=== PATIENT | male | born 1940 | race Caucasian/White ===

== ENCOUNTER 2021-10-07 08:23 | Outpatient (REF) | payer MEDICARE, MEDICAID, SELFPAY ==
[2021-10-07 11:43] LABS: MANUAL DIFF FLAG NO
[2021-10-07 11:44] LABS: Appearance Urine CLEAR; Color Urine YELLOW; Glucose Urine UA NEG (NEG); Leukocyte Esterase Urine NEG (NEG); Nitrite Urine NEG (NEG); Specific Gravity - Urine 1.025 (1.005-1.025); Urine Blood NEG (NEG); Urine Ketones NEG (NEG); Urine Protein 1+ MG/DL (NEG-TRACE)
[2021-10-07 11:49] LABS: Basophils Percent Auto 0.3 % (0-2); Eosinophils Absolute Auto 0.2 X10*3/uL (0.0-0.4); Hematocrit 49.4 % (42.0-52.0); Hemoglobin 16.9 g/dl (14.0-18.0); Imm Gran Abs Auto 0.02 X10*3/uL (0.00-0.03); Imm Gran Pct Auto 0.3 % (0.0-0.4); Lymphocytes Absolute Auto 1.4 X10*3/uL (1.2-4.9); Lymphocytes Percent Auto 21.5 % (20-40); Mean Corpuscular HGB Conc 34.2 g/dl (31.0-36.0); Mean Corpuscular Hemoglobin 31.4 pg (27.0-33.0); Mean Corpuscular Volume 91.7 fL (80.0-98.0); Mean Platelet Volume 9.5 fL (9.4-12.4); Monocytes Absolute Auto 0.9 X10*3/uL (0.1-1.2); Monocytes Percent Auto 12.7 % (2-11); Neutrophils Absolute Auto 4.2 x10*3/uL (2.0-8.3); Neutrophils Percent Auto 62.2 % (45-73); Platelet Count 218 X10*3/uL (160-400); Red Blood Count 5.39 X10*6/uL (4.60-5.80); Red Cell Distribution Width 12.5 % (11.0-16.0); White Blood Count 6.7 X10*3/uL (4.8-10.8)
[2021-10-07 12:19] LABS: Alanine Aminotransferase 19 U/L (0-40); Albumin Level 4.5 g/dL (3.5-5.0); Alkaline Phosphatase 76 U/L (39-117); Anion Gap 16 (12-20); Aspartate Amino Transferase 26 U/L (5-37); Bilirubin Total 1.1 mg/dL (0.0-1.0); Blood Urea Nitrogen 18 mg/dL (9-16); Calcium 9.6 mg/dL (8.4-10.2); Carbon Dioxide 27 mmol/L (22-29); Chloride 97 mmol/L (96-108); Cholesterol 169 mg/dL; Estimated Glomerular Filt Rate > 60; Glucose Fasting 94 mg/dL (60-99); HDL Cholesterol 60 mg/dL; LDL Cholesterol Calculated 89 mg/dl; Potassium 3.6 mmol/L (3.3-5.1); Sodium 136 mmol/L (135-145); Total Protein 7.8 g/dL (6.5-8.0); Triglycerides 102 mg/dL
[2021-10-07 12:58] LABS: RBC Urine 0-2 /HPF (0); Squamous Epithelial Cell Urine TRACE /LPF
[2021-10-07 12:59] LABS: Mucus Urine TRACE /LPF; WBC Urine 0-2 /HPF (0-4)
== END 2021-10-07 08:24 | disposition home or self-care (01) ==
LOC: HO.HMGCLDS 08:23
PROVIDERS: PCP Internal Medicine; Visit Provider Internal Medicine
DX: I10 Essential (primary) hypertension (principal); E78.5 Hyperlipidemia, unspecified
CPT/HCPCS: 36415; 80053; 80061; 81001; 85025

== ENCOUNTER 2022-08-25 08:37 | Outpatient (REF) | payer MEDICARE, MEDICAID, SELFPAY ==
[2022-08-25 11:19] LABS: MANUAL DIFF FLAG NO
[2022-08-25 11:30] LABS: Baso%MD 0.5 %; Basophils Percent Auto 0.5 % (0-2); Eos%MD 3.2 %; Eosinophils Absolute Auto 0.2 X10*3/uL (0.0-0.4); Eosinophils Percent Auto 3.2 % (0-4); Hematocrit 48.5 % (42.0-52.0); Hemoglobin 16.9 g/dl (14.0-18.0); IG%MD 0.3 %; Imm Gran Abs Auto 0.02 X10*3/uL (0.00-0.03); Imm Gran Pct Auto 0.3 % (0.0-0.4); Lymph%MD 22.8 %; Lymphocytes Absolute Auto 1.5 X10*3/uL (1.2-4.9); Lymphocytes Percent Auto 22.8 % (20-40); Mean Corpuscular HGB Conc 34.8 g/dl (31.0-36.0); Mean Corpuscular Hemoglobin 31.4 pg (27.0-33.0); Mean Corpuscular Volume 90.1 fL (80.0-98.0); Mean Platelet Volume 9.4 fL (9.4-12.4); Mono%MD 12.5 %; Monocytes Absolute Auto 0.8 X10*3/uL (0.1-1.2); Monocytes Percent Auto 12.5 % (2-11); Neut%MD 60.7 %; Neutrophils Percent Auto 60.7 % (45-73); Platelet Count 228 X10*3/uL (160-400); Red Blood Count 5.38 X10*6/uL (4.60-5.80); Red Cell Distribution Width 12.1 % (11.0-16.0); White Blood Count 6.5 X10*3/uL (4.8-10.8)
[2022-08-25 12:02] LABS: Cholesterol 151 mg/dL; HDL Cholesterol 51 mg/dL; LDL Cholesterol Calculated 84 mg/dl; Triglycerides 84 mg/dL
[2022-08-25 12:06] LABS: PSA,Total (Free>4and<10) 1.28 ng/mL (0.00-4.00)
[2022-08-25 12:45] LABS: Band Neutrophils Percent 2 % (3-5); Eosinophils Absolute Manual 0.3 X10*3/uL (0.0-0.4); Eosinophils Percent Manual 4 % (0-4); Lymphocytes Absolute Manual 1.3 X10*3/uL (1.2-4.9); Lymphocytes Percent Manual 20 % (20-40); Monocytes Absolute Manual 0.8 X10*3/uL (0.1-1.2); Monocytes Percent Manual 12 % (2-11); Neutrophils Absolute Manual 4.2 X10*3/uL (2.0-8.3); Neutrophils Percent Manual 62 % (45-73); RBC Morphology NORMAL
[2022-08-25 12:46] LABS: Platelet Estimate NORMAL (NORMAL); Platelet Morphology Comment NORMAL
== END 2022-08-25 08:38 | disposition home or self-care (01) ==
LOC: HO.HMGCLDS 08:37
PROVIDERS: PCP Internal Medicine; Visit Provider Internal Medicine
DX: Z12.5 Encounter for screening for malignant neoplasm of prostate (principal); E78.5 Hyperlipidemia, unspecified; M10.9 Gout, unspecified; I10 Essential (primary) hypertension
CPT/HCPCS: 36415; 80061; 84153; 85007; 85025; 85027

== ENCOUNTER 2023-04-04 10:05 | Outpatient (REF) | payer MEDICARE, MEDICAID, SELFPAY ==
--- NOTE | ~2023-04-04 | XR_ITS ---
EXAMINATION: XR CHEST CLINICAL INFORMATION: Shortness of breath COMPARISON: None available. TECHNIQUE: 2 views of the chest were obtained. FINDINGS: There is lingular consolidation present. The heart and pulmonary vessels appear normal. Lungs are hyperinflated with flattening of the diaphragms consistent with COPD. No pleural effusions are seen. Some mild reticular nodular densities are present in the right perihilar region. XR/XR chest 2V IMPRESSION: Lingular pneumonia. Follow-up to resolution is recommended.
== END 2023-04-04 10:06 | disposition home or self-care (01) ==
LOC: HO.HMGCX 10:05
PROVIDERS: PCP Internal Medicine; Visit Provider Internal Medicine
DX: R06.09 Other forms of dyspnea (principal); I10 Essential (primary) hypertension
CPT/HCPCS: 71046

== ENCOUNTER 2023-04-19 07:55 | Outpatient (REF) | payer MEDICARE, MEDICAID, SELFPAY ==
--- NOTE | ~2023-04-19 | XR_ITS ---
EXAMINATION: XR CHEST CLINICAL INFORMATION: Pneumonia COMPARISON: 04/04/2023 TECHNIQUE: 2 views of the chest were obtained. FINDINGS: Compared to the prior study, there has been no significant interval change, again seen is the area of lingular consolidation/pneumonia as well as increased reticular nodular densities in the right perihilar region. No pleural effusions are seen. The lungs are hyperinflated consistent with COPD. Heart size normal. No evidence of CHF. XR/XR chest 2V IMPRESSION: No significant interval change in the lingular consolidation/pneumonia and right perihilar reticular nodular densities. At this point in time, contrast-enhanced CT scan of the chest may be worthwhile to exclude underlying abnormality.
[2023-04-19 11:14] LABS: MANUAL DIFF FLAG NO
[2023-04-19 11:29] LABS: Basophils Percent Auto 0.4 % (0-2); Eosinophils Absolute Auto 0.3 X10*3/uL (0.0-0.4); Eosinophils Percent Auto 3.8 % (0-4); Hemoglobin 15.2 g/dl (14.0-18.0); Imm Gran Abs Auto 0.03 X10*3/uL (0.00-0.03); Imm Gran Pct Auto 0.4 % (0.0-0.4); Lymphocytes Absolute Auto 1.5 X10*3/uL (1.2-4.9); Lymphocytes Percent Auto 19.2 % (20-40); Mean Corpuscular HGB Conc 33.8 g/dl (31.0-36.0); Mean Corpuscular Volume 88.9 fL (80.0-98.0); Mean Platelet Volume 8.8 fL (9.4-12.4); Monocytes Absolute Auto 0.9 X10*3/uL (0.1-1.2); Monocytes Percent Auto 11.5 % (2-11); Neutrophils Absolute Auto 4.9 x10*3/uL (2.0-8.3); Neutrophils Percent Auto 64.7 % (45-73); Platelet Count 245 X10*3/uL (160-400); Red Blood Count 5.06 X10*6/uL (4.60-5.80); White Blood Count 7.6 X10*3/uL (4.8-10.8)
[2023-04-19 11:58] LABS: Alanine Aminotransferase 12 U/L (0-40); Alkaline Phosphatase 95 U/L (39-117); Anion Gap 13 (12-20); Aspartate Amino Transferase 18 U/L (5-37); Bilirubin Total 0.7 mg/dL (0.0-1.0); Blood Urea Nitrogen 18 mg/dL (9-16); Calcium 8.8 mg/dL (8.4-10.2); Carbon Dioxide 26 mmol/L (22-29); Chloride 102 mmol/L (96-108); Cholesterol 150 mg/dL; Estimated Glomerular Filt Rate > 60; Glucose Fasting 93 mg/dL (60-99); HDL Cholesterol 44 mg/dL; LDL Cholesterol Calculated 86 mg/dl; Potassium 3.7 mmol/L (3.3-5.1); Sodium 137 mmol/L (135-145); Total Protein 7.6 g/dL (6.5-8.0); Triglycerides 101 mg/dL; Uric Acid 6.6 mg/dL (3.4-7.0)
[2023-04-19 12:02] LABS: B Type Natriuretic Peptide 43 pg/mL (<100)
== END 2023-04-19 07:56 | disposition home or self-care (01) ==
LOC: HO.HMGCX 07:55
PROVIDERS: PCP Internal Medicine; Visit Provider Internal Medicine
DX: Z00.00 Encounter for general adult medical examination without abnormal findings (principal); I10 Essential (primary) hypertension; R06.09 Other forms of dyspnea; J18.9 Pneumonia, unspecified organism; E78.5 Hyperlipidemia, unspecified
CPT/HCPCS: 36415; 71046; 80053; 80061; 83880; 84550; 85025

== ENCOUNTER 2023-04-24 13:54 | Outpatient (REF) | payer MEDICARE, MEDICAID, SELFPAY ==
--- NOTE | ~2023-04-24 | CT_ITS ---
EXAMINATION: CT CHEST WITH CONTRAST CLINICAL INFORMATION: Left lung infiltrate, follow-up. COMPARISON: Chest radiographs dated 04/19/2023 and 04/04/2023. TECHNIQUE: Multidetector volumetric CT imaging of the chest was obtained after the administration of 50 mL of Omnipaque 350 intravenous contrast without immediate adverse reactions. Axial MIP volume rendering provided. Sagittal and coronal reformatted images were obtained. This CT examination was performed using dose optimization techniques as appropriate, variously including the following: *Automated exposure control *Adjustment of mA and/or kV according to patient size (this includes techniques or standardized protocols for targeted exams where dose is matched to indication/reason for exam; i.e. extremities or head) *Use of iterative reconstruction technique DLP: 122 mGy-cm FINDINGS: LUNGS/PLEURA/AIRWAYS: Mild upper lobe predominant centrilobular emphysema is seen. Mild to moderate paraseptal emphysema most pronounced in the lower lobes. Dense consolidation is seen posteroinferiorly in the left lower lobe extending into the lingula. Adjacent infiltrative changes and interlobular septal thickening is seen anteriorly. Several small nodules are seen. Barrel Maker nodules are as follows: Right upper lobe inferior, juxta fissural: 0.5 cm, image 105, series 5 Right middle lobe, lateral: 0.7 cm, image 107, series 5 Right middle lobe, anterolateral: 0.4 cm, image 120, series 5 Right lower lobe, posterolateral, subpleural: 2.5 cm, image 72, series 8; image 121, series 5 Left lower lobe, posterior: 0.8 cm, image 152, series 5 MEDIASTINUM: The visualized thyroid gland shows mild enlargement with small nodules in the left measuring up to 0.8 cm posteriorly in the lower pole (image 6, series 3) not requiring follow-up at this time. Mild to moderate atherosclerosis is seen in the thoracic aorta without significant dilatation. Moderate to severe atherosclerosis in the coronary arteries. No pericardial effusion. Small coarsely calcified mediastinal lymph nodes are seen. A customer account representative subcarinal lymph node measures 0.6 cm in short axis (image 92, series 5). UPPER ABDOMEN: Mild diffuse decreased hepatic attenuation. Several low-attenuation foci are seen. The largest is seen medially in the left lobe measuring 1.0 cm (image 56, series 3). MUSCULOSKELETAL: Mild to moderate multilevel degenerative changes including prominent multilevel marginal osteophyte formation. No suspicious abnormality. SOFT TISSUES: Soft tissues. CT/CT chest w IV con IMPRESSION: 1. Dense consolidation in the left upper lobe extending into the lingula along with multiple pulmonary nodules as detailed above is nonspecific. While this could represent an infectious/inflammatory process, malignancy cannot be excluded. Considerations for imaging follow-up include CT-guided biopsy and/or short-term CT follow-up in 3 months. Short-term radiographic follow-up is recommended to assess for change. 2. Hepatic steatosis. Low-attenuation foci are nonspecific given the pulmonary findings. These can be monitored for change with the repeat CT scan as well. Fleischner guidelines were followed.
[2023-04-24] MEDS: iohexoL 350 MG/ML 100 ML INFUS..BTL IV (15:38)
== END 2023-04-24 13:55 | disposition home or self-care (01) ==
LOC: HO.CT 13:54
PROVIDERS: Visit Provider Internal Medicine
DX: J18.9 Pneumonia, unspecified organism (principal)
CPT/HCPCS: 71260; Q9967

== ENCOUNTER → 2023-04-27 14:00 | Outpatient (REF) | payer MEDICARE, MEDICAID, SELFPAY | LOC: HO.CARD 14:00 | PROVIDERS: Visit Provider Internal Medicine | DX: R06.09 Other forms of dyspnea (principal); I10 Essential (primary) hypertension | CPT/HCPCS: 93306 ==

== ENCOUNTER 2023-05-17 10:41 | Outpatient (AMB) | payer MEDICARE, MEDICAID, SELFPAY ==
--- NOTE | 2023-05-17 10:44 | A.OFFVIS_ITS ---
Intake Vital Signs 05/17/23 10:45 Height 5 ft 7 in Weight 149 lb 14.629 oz BMI 23.5 BP 138/62 Blood Pressure Location Lt brachial Position Sitting Pulse 67 Pulse Source Pulse Oximeter Pulse Oximetry (%) 93 Oxygen Delivery Method Room Air Intake Visit Reasons: Abnormal CT scan Allergies No Known Allergies Allergy (Verified 05/17/23 10:49) HPI HPI Comments History of Present Illness Details The patient is here for pulmonary evaluation. The patient is here with his daughter. He is an 83-year-old gentleman non Vietnamese-speaking his daughter is translating and she is very fluent. Apparently patient has been developing worsening cough and shortness of breath. Denies any significant night sweats or hemoptysis. Denies any significant weight loss. Ultimately the patient did have a chest x-ray that was abnormal and then followed up with a CT scan of the chest demonstrating significant airspace disease in appears to have an endobronchial obstruction. I am suspicious for a postobstructive pneumonia. Explained to this concerning findings with the patient and his daughter. I did explain that he would need further diagnostic interventions. However, the patient states that he would like to hold off on any invasive or semi invasive diagnostic procedures. I did give him few different options as far as bronchoscopy versus CT-guided biopsy but the patient opted on conservative measures. Therefore, I did give him a prescription for antibiotics and also will prescribe a Acapella valve for chest PT to see if he can clear some mucus out of the airways and see if there can be some improvement. Will plan to repeat the CT scan 6 weeks to see if there is any significant improvement. In the meantime the family will talk with the patient to see if he would want to consider further diagnostic interventions in the near future if still needed. If he decides not to undergo any diagnostic interventions and understands the gravity of the situation then will have to consider talking further about goals of care. also, during the visit we did go for brief walking oximetry in the patient did desaturate to 88% with activity. The patient did qualify for oxygen supplementation with activity. [facility] Medical History (Updated 05/19/23 @ 22:11 by Maxwell Garrido MD) HTN (hypertension) Hyperlipidemia Lung mass Pulmonary nodules Family History Father No problems noted. Mother No problems noted. Social History Housing: House Housing Other:: , 3 adult children Patient Tobacco Use Status: Former Tobacco user (15 years ago) e-Cigarette/Vaping Use: Never Used Current occupational status: retired Cognitive needs: No Hearing needs: No Vision needs: Yes Review of Systems Const All systems reviewed & are unremarkable except as noted in HPI and below Reports no additional complaints, Denies fever(s), Denies night sweats and Denies weight loss Eyes Reports no additional complaints ENT Reports no additional complaints Card Reports no additional complaints and Reports dyspnea on exertion Resp Reports cough, Denies hemoptysis and Reports dyspnea on exertion GI Reports no additional complaints Reports no additional complaints Physical Exam Vital Signs: Last Vital Signs Pulse 67 05/17/23 10:45 BP 138/62 05/17/23 10:45 Pulse Ox 93 05/17/23 10:45 Oxygen Delivery Method Room Air 05/17/23 10:45 BMI result Body Mass Index 23.5 Const General: comfortable HEENT Head: Yes normocephalic Neck Neck: Yes supple Chest Chest palpation & inspection: normal inspection of the chest Resp Effort & Inspection: normal respiratory effort Auscultation: diminished lung sounds Cardio Heart sounds: S1 normal heart sound present and S2 normal heart sound present GI Palpation (GI): Soft to palpation Skin General skin exam: no rashes or lesions noted Extrem General: Yes no clubbing, cyanosis or edema Office Procedures 6 Minute Walk Time:: 22:14 SPO2 % at rest: 95 Pulse at rest: 78 SPO2 % during excercise: 88 Pulse during excercise: 90 Distance in yards walked: 200 Jeffrey Score: 6 Supplemental Oxygen: desaturated to pox88% with activity on RA, placed on 2L/pulse, then 3L/pulse maintaining pox 92% with activity [id number] - 6 Minute Walk Results Reviewed Results Reviewed: [address] [address] [address] Scan Report Signed Patient: Farrukh Lanza MR#: [id number] : 1940 Acct:[id number] Age/Sex: 83 / M ADM Date: 04/24/23 Loc: HO.CT Attending Dr: Theresa Teague MD Ordering Physician: Theresa Teague MD Date of Service: 04/24/23 Procedure(s): CT chest w IV con Accession Number(s): [id number] cc: Theresa Teague MD~ EXAMINATION: CT CHEST WITH CONTRAST CLINICAL INFORMATION: Left lung infiltrate, follow-up. COMPARISON: Chest radiographs dated 04/19/2023 and 04/04/2023. TECHNIQUE: Multidetector volumetric CT imaging of the chest was obtained after the administration of 50 mL of Omnipaque 350 intravenous contrast without immediate adverse reactions. Axial MIP volume rendering provided. Sagittal and coronal reformatted images were obtained. This CT examination was performed using dose optimization techniques as appropriate, variously including the following: *Automated exposure control *Adjustment of mA and/or kV according to patient size (this includes techniques or standardized protocols for targeted exams where dose is matched to indication/reason for exam; i.e. extremities or head) *Use of iterative reconstruction technique DLP: 122 mGy-cm FINDINGS: LUNGS/PLEURA/AIRWAYS: Mild upper lobe predominant centrilobular emphysema is seen. Mild to moderate paraseptal emphysema most pronounced in the lower lobes. Dense consolidation is seen posteroinferiorly in the left lower lobe extending into the lingula. Adjacent infiltrative changes and interlobular septal thickening is seen anteriorly. Several small nodules are seen. Environmental Specialist nodules are as follows: Right upper lobe inferior, juxta fissural: 0.5 cm, image 105, series 5 Right middle lobe, lateral: 0.7 cm, image 107, series 5 Right middle lobe, anterolateral: 0.4 cm, image 120, series 5 Right lower lobe, posterolateral, subpleural: 2.5 cm, image 72, series 8; image 121, series 5 Left lower lobe, posterior: 0.8 cm, image 152, series 5 MEDIASTINUM: The visualized thyroid gland shows mild enlargement with small nodules in the left measuring up to 0.8 cm posteriorly in the lower pole (image 6, series 3) not requiring follow-up at this time. Mild to moderate atherosclerosis is seen in the thoracic aorta without significant dilatation. Moderate to severe atherosclerosis in the coronary arteries. No pericardial effusion. Small coarsely calcified mediastinal lymph nodes are seen. A bilingual inside sales representative subcarinal lymph node measures 0.6 cm in short axis (image 92, series 5). UPPER ABDOMEN: Mild diffuse decreased hepatic attenuation. Several low-attenuation foci are seen. The largest is seen medially in the left lobe measuring 1.0 cm (image 56, series 3). MUSCULOSKELETAL: Mild to moderate multilevel degenerative changes including prominent multilevel marginal osteophyte formation. No suspicious abnormality. SOFT TISSUES: Soft tissues. CT/CT chest w IV con IMPRESSION: 1. Dense consolidation in the left upper lobe extending into the lingula along with multiple pulmonary nodules as detailed above is nonspecific. While this could represent an infectious/inflammatory process, malignancy cannot be excluded. Considerations for imaging follow-up include CT-guided biopsy and/or short-term CT follow-up in 3 months. Short-term radiographic follow-up is recommended to assess for change. 2. Hepatic steatosis. Low-attenuation foci are nonspecific given the pulmonary findings. These can be monitored for change with the repeat CT scan as well. ? Fleischner guidelines were followed. ? ? Dictated By: Saroj London MD Signed By: <Electronically signed by Saroj London MD in OV> 04/24/23 1656 DD/ 1536 TD/TT:? Extract Puller: GR Assessment & Plan Assessment & Plan (1) PUENTES (dyspnea on exertion): Code(s): R06.09 - Other forms of dyspnea (2) Lung mass: Code(s): R91.8 - Other nonspecific abnormal finding of lung field (3) Pneumonia: Code(s): J18.9 - Pneumonia, unspecified organism Qualifiers: Pneumonia type: due to unspecified organism Laterality: left Lung location: unspecified part of lung Qualified Code(s): J18.9 - Pneumonia, unspecified organism (4) Pulmonary nodules: Code(s): R91.8 - Other nonspecific abnormal finding of lung field Plan The patient understands that he has a very serious finding on the CT scan. He understands and the daughter understands that this could be cancer. There other not undergo any diagnostic interventions at this time and rather conservative measures. recommendations: Start CPT with Acapella valve start oxygen supplementation start antibiotic regimen with documented repeat CT scan in 6 weeks follow-up in 6-8 weeks Orders: Orders CT chest wo IV con 6 Weeks R91.8 - Other nonspecific abnormal finding of lung field Medications: New amoxicillin-pot clavulanate 875-125 mg 1 tab PO BID 28 tabs 0RF 14 days Coding Level of Care Code New Pt Level 4 (06047) Diagnoses PUENTES (dyspnea on exertion) R06.09 Lung mass R91.8 Pneumonia J18.9 Pneumonia type: due to unspecified organism Laterality: left Lung location: unspecified part of lung Pulmonary nodules R91.8 CPT Codes Coding ([id number]) Time Spent (min) 40
[2023-05-17 10:45] VITALS: BP 138/62; PULSE 67; O2SAT 93; BMI 23.5
[2023-05-19 22:15] VITALS: PULSE 78; O2SAT 95
== END 2023-05-17 11:28 | disposition home or self-care (01) ==
PROVIDERS: PCP Internal Medicine; Visit Provider Hospitalist
DX: R06.09 Other forms of dyspnea (principal); R91.8 Other nonspecific abnormal finding of lung field; J18.9 Pneumonia, unspecified organism
CPT/HCPCS: 94618; 99204

== ENCOUNTER → 2023-05-17 10:41 | Outpatient (BNVA) | payer MEDICARE, MEDICAID, SELFPAY | PROVIDERS: PCP Internal Medicine; Visit Provider Hospitalist | DX: R91.8 Other nonspecific abnormal finding of lung field (principal); R06.09 Other forms of dyspnea; J18.9 Pneumonia, unspecified organism | CPT/HCPCS: 94618; 99202 ==

== ENCOUNTER 2023-06-07 10:31 | Outpatient (AMB) | payer MEDICARE, MEDICAID, SELFPAY ==
[2023-06-07 10:36] VITALS: BP 142/62; PULSE 75; O2SAT 95; BMI 24.1
--- NOTE | 2023-06-07 10:36 | A.OFFPC_ITS ---
Vital Signs 06/07/23 10:36 Height 5 ft 7 in Weight 154 lb BMI 24.1 BP 142/62 H Blood Pressure Location Lt brachial Position Sitting Pulse 75 Pulse Source Pulse Oximeter Pulse Oximetry (%) 95 Oxygen Delivery Method Room Air Intake Visit Reasons: 2 month follow up Intake Note: Pt is here today for 2 months follow up visit. Allergies No Known Allergies Allergy (Verified 06/07/23 10:44) Medication List - Last Reconciled 06/07/23 by Theresa Teague MD allopurinol 100 mg PO DAILY amlodipine 10 mg PO DAILY hydrochlorothiazide 25 mg PO DAILY olmesartan 20 mg PO DAILY Trelegy Ellipta 100-62.5-25 mcg ([id number]) 1 inh inhalation DAILY NS Tobacco use date assessed: 04/04/23 Dental Screening Dental Screen Date: 06/07/23 Did you have a dental visit in the last 12 months?: No Did you have a dental problem in the last 6 months where you did not have access to dental care?: No Was dental information given to patient?: Patient declined HPI 2 month follow up HPI Details Pt presents for f/u COPD, left upper lobe multiple pulmonary nodules on CT s/p treatment with Levaquin and Augmentin. Patient complains of persistent dyspnea on exertion, intermittent cough with small amount of clear sputum. He denies pleurisy fever chills weight loss. Patient has been using palmer pplemental O2 at home but not with exertion. 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 Patient has not been using Trelegy inhaler. He has not been compliant taking hydralazine twice a day for hypertension. [facility] Medical History (Updated 06/07/23 @ 11:44 by Theresa Teague MD) HTN (hypertension) Hyperlipidemia Lung mass Pulmonary nodules Family History Father No problems noted. Mother No problems noted. Social History Housing: House Housing Other:: , 3 adult children Patient Tobacco Use Status: Former Tobacco user (15 years ago) e-Cigarette/Vaping Use: Never Used Current occupational status: retired Cognitive needs: No Hearing needs: No Vision needs: Yes Questionnaire Thrive Questionnaire Date Thrive assessed: 04/04/23 ZENY-7 AMB Questionnaire ZENY-7 Date ZENY - 7 assessed: 04/04/23 Source: Developed by Drs. Israel Summers, Valarie Russ, Ramirez Christensen and colleagues, with an educational betsy from [employer]. Review of Systems Const All systems reviewed & are unremarkable except as noted in HPI and below Reports no additional complaints Eyes Reports no additional complaints ENT Reports no additional complaints Card Reports no additional complaints Resp Reports no additional complaints GI Reports no additional complaints Reports no additional complaints Physical exam (Primary Care) Vital Signs: Last Vital Signs Pulse 75 06/07/23 10:36 BP 142/62 H 06/07/23 10:36 Pulse Ox 95 06/07/23 10:36 Oxygen Delivery Method Room Air 06/07/23 10:36 BMI result Body Mass Index 24.1 Tobacco/Smoking Status: Tobacco use Status Tobacco use date assessed 04/04/23 06/07/23 10:36 Patient Tobacco Use Status Former Tobacco user (15 06/07/23 10:36 years ago) e-Cigarette/Vaping Use Never Used 06/07/23 10:36 Thrive Assessment: Date of Thrive Assessment Date Thrive assessed 04/04/23 06/07/23 10:36 Const General: no acute distress HENMT Head: Yes normal to inspection Throat: Yes posterior oropharynx normal Resp Effort & Inspection: normal respiratory effort Auscultation: crackles (bilatrally) and diminished lung sounds on the left Cardio Rhythm: regular rhythm Heart sounds: S1 normal heart sound present and S2 normal heart sound present Extrem Other: 1+ pitting edema bilaterally Assessment and Plan Assessment & Plan (1) HTN (hypertension): Code(s): I10 - Essential (primary) hypertension Plan: Change hydralazine to olmesartan 20 mg a day continue amlodipine and hydrochlorothiazide. BMP will be checked in 1 week and patient will follow-up in 1 month (2) Lung mass: Comment: WANDER perihilar multiple pulmonary nodules on CT 04/20 Code(s): R91.8 - Other nonspecific abnormal finding of lung field Plan: Follow-up with pulmonology (3) COPD (chronic obstructive pulmonary disease): Code(s): J44.9 - Chronic obstructive pulmonary disease, unspecified Plan: Starting Trelegy inhaler was discussed with the patient., continue to use supplemental O2 to keep O2 sat above 92 Orders: Orders Basic Metabolic Panel 1 Week I10 - Essential (primary) hypertension Medications: New olmesartan 20 mg PO DAILY 30 tabs 1RF Discontinued hydralazine Discontinued Reason: Doctor's Order 10 mg PO BID 180 tabs 3RF Coding Level of Care Code Est Pt Level 4 (08077) Diagnoses HTN (hypertension) I10 Lung mass R91.8 COPD (chronic obstructive pulmonary disease) J44.9
== END 2023-06-07 12:43 | disposition home or self-care (01) ==
PROVIDERS: PCP Internal Medicine; Visit Provider Internal Medicine
DX: I10 Essential (primary) hypertension (principal); R91.8 Other nonspecific abnormal finding of lung field; J44.9 Chronic obstructive pulmonary disease, unspecified
CPT/HCPCS: 99214

== ENCOUNTER 2023-06-25 13:45 | Outpatient (AMB) | payer MEDICARE, MEDICAID, SELFPAY ==
[2023-06-25 13:50] VITALS: BP 134/58; PULSE 64; O2SAT 94; BMI 25.1
--- NOTE | 2023-06-25 13:50 | A.OFFVIS_ITS ---
Intake Vital Signs 06/25/23 13:50 Height 5 ft 6 in Weight 155 lb 6.814 oz BMI 25.1 BP 134/58 L Blood Pressure Location Lt brachial Position Sitting Pulse 64 Pulse Source Pulse Oximeter Pulse Oximetry (%) 94 Oxygen Delivery Method Room Air Intake Visit Reasons: Abnormal CT scan Allergies No Known Allergies Allergy (Verified 06/25/23 13:51) HPI HPI Comments History of Present Illness Details He is an 83-year-old gentleman non Hebrew-speaking his daughter is translating and she is very fluent. Apparently patient has been developing worsening cough and shortness of breath. Denies any significant night sweats or hemoptysis. Denies any significant weight loss. Ultimately the patient did have a chest x-ray that was abnormal and then followed up with a CT scan of the chest demonstrating significant airspace disease in appears to have an endobronchial obstruction. I am suspicious for a postobstructive pneumonia. Explained to this concerning findings with the patient and his daughter. I did explain that he would need further diagnostic interventions. However, the patient states that he would like to hold off on any invasive or semi invasive diagnostic procedures. I did give him few different options as far as bronchoscopy versus CT-guided biopsy but the patient opted on conservative measures. Therefore, I did give him a prescription for antibiotics and also will prescribe a Acapella valve for chest PT to see if he can clear some mucus out of the airways and see if there can be some improvement. Will plan to repeat the CT scan 6 weeks to see if there is any significant improvement. In the meantime the family will talk with the patient to see if he would want to consider further diagnostic interventions in the near future if still needed. If he decides not to undergo any diagnostic interventions and understands the gravity of the situation then will have to consider talking further about goals of care. also, during the visit we did go for brief walking oximetry in the patient did desaturate to 88% with activity. The patient did qualify for oxygen supplementation with activity. 06/25/2023 the patient is here for a pulmonary follow-up visit. The patient completed the antibiotics. He is also using the flutter valve for chest PT. He is able to get some sputum out. She also using the oxygen with good effect. The oxygen therapy has been affecting beneficial. In the meantime he is scheduled for the CT scan but is not too next week. He still has some crackles on examination specially on the left side is very diminished. I talked to the family and I suspect that the left-sided density probably is not any better. We did talk about if the CT scan continues to be abnormal will perform a bronchoscopy. Explained the procedure to the patient and also to his daughter. The patient understands and is willing to proceed with the procedure. We did go for brief walking oximetry the patient still desaturates down to 88% on room air. after he gets his CT scan we will talk on the phone regarding the next best step. My suspicion is that he will need a bronchoscopy at this time. [facility] Medical History (Updated 06/07/23 @ 11:44 by Theresa Teague MD) HTN (hypertension) Hyperlipidemia Lung mass Pulmonary nodules Family History Father No problems noted. Mother No problems noted. Social History Housing: House Housing Other:: , 3 adult children Patient Tobacco Use Status: Former Tobacco user (15 years ago) e-Cigarette/Vaping Use: Never Used Current occupational status: retired Cognitive needs: No Hearing needs: No Vision needs: Yes Review of Systems Const All systems reviewed & are unremarkable except as noted in HPI and below Reports no additional complaints, Denies fever(s), Denies night sweats and Denies weight loss Eyes Reports no additional complaints ENT Reports no additional complaints Card Reports no additional complaints and Reports dyspnea on exertion Resp Reports cough, Denies hemoptysis and Reports dyspnea on exertion GI Reports no additional complaints Reports no additional complaints Physical Exam Vital Signs: Last Vital Signs Pulse 64 06/25/23 13:50 BP 134/58 L 06/25/23 13:50 Pulse Ox 94 06/25/23 13:50 Oxygen Delivery Method Room Air 06/25/23 13:50 BMI result Body Mass Index 25.1 Const General: comfortable HEENT Head: Yes normocephalic Neck Neck: Yes supple Chest Chest palpation & inspection: normal inspection of the chest Resp Effort & Inspection: normal respiratory effort Auscultation: crackles on the left and diminished lung sounds Cardio Heart sounds: S1 normal heart sound present and S2 normal heart sound present GI Palpation (GI): Soft to palpation Skin General skin exam: no rashes or lesions noted Extrem General: Yes no clubbing, cyanosis or edema Assessment & Plan Assessment & Plan (1) PUENTES (dyspnea on exertion): Code(s): R06.09 - Other forms of dyspnea (2) Lung mass: Comment: WANDER perihilar multiple pulmonary nodules on CT 04/20 Code(s): R91.8 - Other nonspecific abnormal finding of lung field (3) Pneumonia: Code(s): J18.9 - Pneumonia, unspecified organism Qualifiers: Laterality: left Lung location: unspecified part of lung Pneumonia type: due to unspecified organism Qualified Code(s): J18.9 - Pneumonia, unspecified organism (4) Pulmonary nodules: Code(s): R91.8 - Other nonspecific abnormal finding of lung field Plan continue CPT continue oxygen supplementation with activity repeat CT scan next week, if still abnormal will undergo a bronchoscopy follow-up in 6-8 weeks Coding Level of Care Code Est Pt Level 4 (28758) Diagnoses PUENTES (dyspnea on exertion) R06.09 Lung mass R91.8 Pneumonia J18.9 Laterality: left Lung location: unspecified part of lung Pneumonia type: due to unspecified organism Pulmonary nodules R91.8 Time Spent (min) 18
== END 2023-06-25 14:18 | disposition home or self-care (01) ==
PROVIDERS: PCP Internal Medicine; Visit Provider Hospitalist
DX: R06.09 Other forms of dyspnea (principal); R91.8 Other nonspecific abnormal finding of lung field; J18.9 Pneumonia, unspecified organism
CPT/HCPCS: 99214

== ENCOUNTER → 2023-06-25 13:45 | Outpatient (BNVA) | payer MEDICARE, MEDICAID, SELFPAY | PROVIDERS: PCP Internal Medicine; Visit Provider Hospitalist | DX: R06.09 Other forms of dyspnea (principal); J18.9 Pneumonia, unspecified organism; I10 Essential (primary) hypertension; R91.8 Other nonspecific abnormal finding of lung field; Z99.81 Dependence on supplemental oxygen | CPT/HCPCS: 99212 ==

== ENCOUNTER 2023-07-03 14:53 | Outpatient (REF) | payer MEDICARE, MEDICAID, SELFPAY ==
--- NOTE | ~2023-07-03 | CT_ITS ---
EXAMINATION: CT CHEST WITHOUT CONTRAST CLINICAL INFORMATION: Prior abnormal imaging. COMPARISON: 04/24/2023 TECHNIQUE: Multidetector volumetric CT imaging of the chest was done. Axial MIP volume rendering provided. Sagittal and coronal reformatted images were obtained. This CT examination was performed using dose optimization techniques as appropriate, variously including the following: *Automated exposure control *Adjustment of mA and/or kV according to patient size (this includes techniques or standardized protocols for targeted exams where dose is matched to indication/reason for exam; i.e. extremities or head) *Use of iterative reconstruction technique DLP: 274 mGy-cm FINDINGS: LUNGS: Mild centrilobular and paraseptal emphysema. Possible spiculated mass in the lingula partially obscured measuring 2.4 x 2.9 cm on image 246 with pleural retraction. There is surrounding dense consolidation with partial collapse of the lingula beyond the proximal mass possibly related to postobstructive changes. Spiculated nodule in the right middle lobe measures 1.0 x 1.0 cm on image 234. This has increased in size since the prior exam where it measured 0.7 x 0.7 cm. Tree-in-bud opacities in bilateral lower lobes and posterior right upper lobe. 3 mm nodule along the right minor fissure on image 236. 4 mm nodule in the right lower lobe on image 270. 5 mm nodule in the right middle lobe on image 318. 3 mm nodule in the lingula on image 270. 5 mm nodule in the right lower lobe on image 247. 3 mm nodule in the left lower lobe on image 233. 4 mm subpleural nodule right lower lobe on image 349. MEDIASTINUM: Enlarged and heterogeneous thyroid gland. Great vessels are of normal caliber. A calcified mediastinal and hilar lymph nodes. No axillary lymphadenopathy. Heart is enlarged. No pericardial effusion. CORONARY ARTERY CALCIFICATION: Marked. PLEURA: No pleural effusion. UPPER ABDOMEN: No adrenal mass. 2.3 cm hepatic cyst. 9 mm hepatic cyst. OSSEOUS STRUCTURES: No destructive bone lesions. CT/CT chest wo IV con IMPRESSION: A spiculated mass measuring 2.4 x 2.9 cm in the lingula is partially obscured and surrounded by dense consolidation possibly related to postobstructive changes. There is associated pleural retraction. These findings are concerning for neoplasm. Interval increase in size of spiculated right middle lobe nodule measuring 1.0 x 1.0 cm. This could represent intrapulmonary metastases. Consultation with thoracic surgery is advised. Consider PET/CT.
== END 2023-07-03 14:54 | disposition home or self-care (01) ==
LOC: HO.CT 14:53
PROVIDERS: PCP Internal Medicine; Visit Provider Hospitalist
DX: R91.8 Other nonspecific abnormal finding of lung field (principal)
CPT/HCPCS: 71250

== ENCOUNTER 2023-07-09 08:49 | Outpatient (REF) | payer MEDICARE, MEDICAID, SELFPAY ==
[2023-07-09 12:21] LABS: Anion Gap 13 (12-20); Blood Urea Nitrogen 25 mg/dL (9-16); Calcium 9.8 mg/dL (8.4-10.2); Carbon Dioxide 25 mmol/L (22-29); Chloride 104 mmol/L (96-108); Estimated Glomerular Filt Rate > 60; Glucose Random 94 mg/dL (60-115); Potassium 4.8 mmol/L (3.3-5.1); Sodium 137 mmol/L (135-145)
== END 2023-07-09 08:50 | disposition home or self-care (01) ==
LOC: HO.HMGCLDS 08:49
PROVIDERS: PCP Internal Medicine; Visit Provider Internal Medicine
DX: I10 Essential (primary) hypertension (principal)
CPT/HCPCS: 36415; 80048

== ENCOUNTER 2023-07-19 06:45 | Day surgery (SDC) | payer MEDICARE, MEDICAID, SELFPAY ==
[2023-07-17 13:07] VITALS: BMI 25.1
[2023-07-17 13:25] VITALS: BMI 25.0
--- NOTE | 2023-07-18 10:12 | P.CONAN_ITS ---
HPI - Anesthesia Eval Consult details Narrative: 83yo M for Bronchoscopy Fiberoptic O2 dependant PMFSH Active Problems Active Problems: All Active Problems (Updated 07/17/23 @ 13:31 by Niru Arteaga RN) COPD (chronic obstructive pulmonary disease) (Acute) Shortness of breath (Acute) Abnormal chest CT (Acute) Pneumonia (Acute) PUENTES (dyspnea on exertion) (Acute) Annual physical exam (Acute) Gout (Acute) Pulmonary nodules (Acute) Lung mass (Acute) Hyperlipidemia (Acute) HTN (hypertension) (Acute) Past Medical History Medical History (Updated 07/23/23 @ 10:59 by Theresa Teague MD) Squamous cell lung cancer Situational anxiety Supplemental oxygen dependent Pulmonary nodules Lung mass Hyperlipidemia HTN (hypertension) Family History Family History Father No problems noted. Mother No problems noted. Surgical History Surgical History Hx of colonoscopy Hx of shoulder surgery Social History Social History Housing: House Housing Other:: , 3 adult children Are you a primary home health care respiratory therapist to a significant other at home: No Do you presently have visiting nurse or other home services: No Patient Tobacco Use Status: Former Tobacco user Quit Date: 2002 Tobacco use type: Cigarette e-Cigarette/Vaping Use: Never Used Current occupational status: retired Cognitive needs: No Hearing needs: No Vision needs: Yes Meds Allergies Allergy/AdvReac Type Severity Reaction Status Date / Time No Known Allergies Allergy Verified 06/25/23 13:51 Exam Exam Date and Time: July 18, 2023 1012 Height,Weight and Vital Signs: Height 5 ft 6 in Weight 70.307 kg Pertinent Lab Results Pertinent Lab Results: Laboratory Tests 04/19/23 07/09/23 08:05 09:00 WBC 7.6 Hgb 15.2 Hct 45.0 Plt Count 245 Sodium 137 Potassium 4.8 D Chloride 104 Carbon Dioxide 25 BUN 25 H Creatinine 1.00 Narrative Narrative: ECHO 2022 Conclusions: - Normal left ventricular size, thickness, systolic function, and wall motion. The visually estimated ejection fraction is between 60-65%. Diastolic function is normal for age. Normal global longitudinal strain. - There is normal right ventricular systolic function. RV size upper limit of normal. - There is mild thickening of the aortic valve. - Mild pulmonary hypertension is present. - There is mild dilatation of the ascending aorta measuring 3.50 cm. Assessment and Plan Assessment Anesthesia Assessment: Chart Reviewed
[2023-07-19] VITALS (9 sets, daily range): BP systolic 119–161; BP diastolic 34–65; PULSE 71–87; RESP 16–20; TEMP 36.3–36.6; O2SAT 93–96
[2023-07-19] MEDS: Lactated Ringers 1,000 ML 100 ML IVCONT (07:30)
--- NOTE | 2023-07-19 08:08 | HO.ANESPROP2 ---
[facility] Active Problems Active Problems: All Active Problems (Updated 07/17/23 @ 13:31 by Niru Arteaga RN) COPD (chronic obstructive pulmonary disease) (Acute) Shortness of breath (Acute) Abnormal chest CT (Acute) Pneumonia (Acute) PUENTES (dyspnea on exertion) (Acute) Annual physical exam (Acute) Gout (Acute) Pulmonary nodules (Acute) Lung mass (Acute) Hyperlipidemia (Acute) HTN (hypertension) (Acute) Past Medical History Medical History Situational anxiety Supplemental oxygen dependent Pulmonary nodules Lung mass Hyperlipidemia HTN (hypertension) Functional capacity: independent ambulation Family History Family History Father No problems noted. Mother No problems noted. Family history of problems with anesthesia: No Surgical History Surgical History Hx of colonoscopy Hx of shoulder surgery History of Problems with Anesthesia: No Social History Social History Housing: House Housing Other:: , 3 adult children Are you a primary care specialist to a significant other at home: No Do you presently have visiting nurse or other home services: No Patient Tobacco Use Status: Former Tobacco user Quit Date: 2002 Tobacco use type: Cigarette e-Cigarette/Vaping Use: Never Used Use of substances other than those prescribed or required for medical reasons: No Are you DNR?: No Advance Directives: No Advance Directives Information Provided: Yes Advance Directives on File: No Nutrition Risks: Surgical patient >75years Current occupational status: retired Cognitive needs: No Hearing needs: No Vision needs: Yes Meds Allergies Allergy/AdvReac Type Severity Reaction Status Date / Time No Known Allergies Allergy Verified 06/25/23 13:51 Active Medications: Current Medications Lactated Ringer's (Lr) 1,000 mls @ 100 mls/hr IVCONT .Q10H RICHI Last Admin: 07/19/23 07:30 Dose: 100 mls/hr Home Medications Medication Instructions Recorded Confirmed Last Taken Type hydralazine 10 mg tablet 10 mg PO BID 07/17/23 07/17/23 Unknown History Exam Exam Date and Time: July 19, 2023 0808 Height,Weight and Vital Signs: Height 5 ft 6 in Weight 70.307 kg Last Vital Signs Temp 97.8 F 07/19/23 07:16 Pulse 74 07/19/23 07:16 Resp 20 07/19/23 07:16 BP 161/65 H 07/19/23 07:16 Pulse Ox 94 07/19/23 07:16 O2 Del Method Room Air 07/19/23 07:16 Airway Mallampati Class: II TM Dist: >3cm Neck ROM: Full Heart: RRR Lungs: CTA Assessment and Plan Final Anesthetic Review Family History of Problems with Anesthesia: No History of Problems with Anesthesia: No NPO: Yes ASA Class: III Final Preanesthetic Review: Meds/Allgs Chart Reviewed, Consent Obtained/Reviewed and Anes Risks/Benef Reviewed Patient Risk: Intermediate Procedure Risk: Low Anesthetic Plan Anesthetic Plan: GA Disposition: Standard PACU
--- NOTE | 2023-07-19 08:21 | MHC.SHP ---
Pre-Procedural Eval Section A Date of Service: 07/19/23 The patient is an INPATIENT: No Changes since office visit: No Cold of Flu in the past 2 weeks, No New Medical Problems, No Changes in Medication and No Patient answered all questions The History & Physical has been completed within 30 days and I have reviewed it.: Yes Section B Chief Complaint: Other nonspecific abnormal finding of lung field Allergies: Allergies Allergy/AdvReac Type Severity Reaction Status Date / Time No Known Allergies Allergy Verified 06/25/23 13:51 Plan I have reviewed the history and physical and performed a pertinent physical examination on my patient. No changes have occurred unless specified. Time Spent With Patient Time: Total time managing care of this patient today ____ minutes.
--- NOTE | 2023-07-19 09:18 | HO.POSTANES ---
Post Anesthesia Evaluation Post Anesthesia Evaluation Date of Service: 07/19/23 Vital Signs: Vital Signs Temp Pulse Resp BP Pulse Ox O2 Del Method 07/19/23 07:16 97.8 F 74 20 161/65 H 94 Room Air Anesthesia: General Endotracheal-GETA Mental Status: Awake Pain Control: Satisfactory Nausea/Vomiting: None Hydration: Adequate Anesthesia-Related Issues: No Anes. Related Issues
--- NOTE | 2023-07-19 09:25 | PM.OP ---
Brief Operative Note Date of Service: 07/19/23 Pre-op diagnosis: post obstructive pneumonia Post-op diagnosis: other (lung mass) Procedure: Bronchoscopy with biopsies, brushings and washings Implants: Surgeon: Maxwell Garrido MD Anesthesia: GETA Was an General Passenger Agent used for this Procedure?: No Estimated blood loss (mL): 4 Pathology: other (WANDER) Condition: stable Disposition: same day
--- NOTE | 2023-07-25 20:44 | OP_ITS ---
DATE OF SERVICE: 07/19/2023 SURGEON: Maxwell Garrido MD PREOPERATIVE DIAGNOSIS: Postobstructive pneumonia. POSTOPERATIVE DIAGNOSIS: PROCEDURE PERFORMED: Bronchoscopy with biopsies, washings, and brushings. ESTIMATED BLOOD LOSS: COMPLICATIONS: ANESTHESIA: ASSISTANTS: SPECIMENS: POSTOPERATIVE DIAGNOSES: Postobstructive pneumonia and lung mass. PROCEDURE: After the patient was adequately sedated, a flexible digital bronchoscope was inserted via the ET tube to the level of the main irene. The bronchoscope was then navigated to the entire tracheobronchial tree that was examined up to the subsegmental level. However, I could not get into the lingular segments of the left upper lobe secondary to an endobronchial lesion. It appeared to be a friable mass blocking the orifice of the airway, concerning for malignancy. Brushings and washings were done and also endobronchial biopsy forceps were also collected and placed in pathology. The patient did have some bleeding minimum between 1 to 2 mL of blood. Ice saline was used in addition to epinephrine was used with good hemostasis. The bronchoscope was then removed. The total endoscopic time was approximately 30 minutes. The patient tolerated the procedure well. Vital signs were stable throughout the procedure. No evidence of any complications afterwards. Patient was stable for discharge. MD RANDI Rondon/AMYL / [id number]
== END 2023-07-19 10:55 | disposition home or self-care (01) ==
PROVIDERS: PCP Internal Medicine; Visit Provider Hospitalist
PROC: 0BJ08ZZ Inspection of Tracheobronchial Tree, Via Natural or Artificial Opening Endoscopic (ICD-10-PCS; CPT 31622; principal; 2023-07-19 08:30)
DX: C34.12 Malignant neoplasm of upper lobe, left bronchus or lung (principal); J18.9 Pneumonia, unspecified organism; R91.8 Other nonspecific abnormal finding of lung field; R06.09 Other forms of dyspnea; Z99.81 Dependence on supplemental oxygen; I10 Essential (primary) hypertension; E78.5 Hyperlipidemia, unspecified; Z87.891 Personal history of nicotine dependence; Z79.899 Other long term (current) drug therapy
CPT/HCPCS: 31625; 31623; 87070; 87205; 88112; 88305; 88341; 88342; J0171; J2250; J3010

== ENCOUNTER → 2023-07-19 06:45 | Outpatient (BNV) | payer MEDICARE, MEDICAID, SELFPAY | PROVIDERS: PCP Internal Medicine; Visit Provider Hospitalist | DX: J18.9 Pneumonia, unspecified organism (principal); C34.12 Malignant neoplasm of upper lobe, left bronchus or lung | CPT/HCPCS: 31623; 31625 ==

== ENCOUNTER 2023-07-23 09:50 | Outpatient (AMB) | payer MEDICARE, MEDICAID, SELFPAY ==
--- NOTE | 2023-07-23 09:58 | MHC.PC.OV ---
Vital Signs 07/23/23 10:00 Height 5 ft 6 in Weight 157 lb BMI 25.3 BP 134/50 L Blood Pressure Location Lt brachial Position Sitting Pulse 66 Pulse Source Pulse Oximeter Pulse Oximetry (%) 95 Oxygen Delivery Method Room Air Intake Visit Reasons: 1M. F/U-HTN./COPD Intake Note: Pt is here today for 1 month follow up visit. Allergies No Known Allergies Allergy (Verified 06/25/23 13:51) Medication List - Last Reconciled 07/23/23 by Theresa Teague MD allopurinol 100 mg PO DAILY amlodipine 10 mg PO DAILY hydrochlorothiazide 25 mg PO DAILY olmesartan 20 mg PO DAILY Tobacco use date assessed: 07/23/23 HPI 1M. F/U-HTN./COPD HPI Details Pt presents for f/u HTN, stable on meds. 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 Mother No problems noted. Social History Housing: House Housing Other:: , 3 adult children Are you a primary care advocate to a significant other at home: No Do you presently have visiting nurse or other home services: No Patient Tobacco Use Status: Former Tobacco user Quit Date: 2002 Tobacco use type: Cigarette e-Cigarette/Vaping Use: Never Used Current occupational status: retired Cognitive needs: No Hearing needs: No Vision needs: Yes Questionnaire Thrive Questionnaire Date Thrive assessed: 04/04/23 ZENY-7 AMB Questionnaire ZENY-7 Date ZENY - 7 assessed: 04/04/23 Source: Developed by Drs. Israel Summers, Valarie Russ, Ramirez Christensen and colleagues, with an educational betsy from [employer]. Review of Systems Const All systems reviewed & are unremarkable except as noted in HPI and below Reports no additional complaints Eyes Reports no additional complaints ENT Reports no additional complaints Card Reports no additional complaints Resp Reports no additional complaints GI Reports no additional complaints Reports no additional complaints Physical exam (Primary Care) Vital Signs: Last Vital Signs Pulse 66 07/23/23 10:00 BP 134/50 L 07/23/23 10:00 Pulse Ox 95 07/23/23 10:00 Oxygen Delivery Method Room Air 07/23/23 10:00 BMI result Body Mass Index 25.3 Tobacco/Smoking Status: Tobacco use Status Tobacco use date assessed 07/23/23 07/23/23 10:03 Patient Tobacco Use Status Former Tobacco user 07/23/23 10:03 Tobacco use type Cigarette 07/23/23 09:58 e-Cigarette/Vaping Use Never Used 07/23/23 09:58 Thrive Assessment: Date of Thrive Assessment Date Thrive assessed 04/04/23 07/23/23 09:58 Const General: no acute distress HENMT Head: Yes normal to inspection Mouth: Normal oral and palatal mucosa present Eyes General: appearance normal, both eyes and all related structures Neck Neck: Yes supple Resp Effort & Inspection: normal respiratory effort Auscultation: diminished lung sounds Cardio Rhythm: regular rhythm Heart sounds: S1 normal heart sound present and S2 normal heart sound present Assessment and Plan Assessment & Plan (1) Squamous cell lung cancer: Comment: WANDER, f/u Dr. Garrido, will have PET scan 07/21 Code(s): C34.90 - Malignant neoplasm of unspecified part of unspecified bronchus or lung (2) Gout: Code(s): M10.9 - Gout, unspecified (3) HTN (hypertension): Code(s): I10 - Essential (primary) hypertension Plan: Continue current medications and follow-up in 6 months Orders: Orders Comprehensive [place]arks. Panel Fast 6 Months C34.90 - Malignant neoplasm of unspecified part of unspecified bronchus or lung, E78.5 - Hyperlipidemia, unspecified, M10.9 - Gout, unspecified Complete Blood Count Auto Diff 6 Months C34.90 - Malignant neoplasm of unspecified part of unspecified bronchus or lung, E78.5 - Hyperlipidemia, unspecified, M10.9 - Gout, unspecified Lipid Panel 6 Months C34.90 - Malignant neoplasm of unspecified part of unspecified bronchus or lung, E78.5 - Hyperlipidemia, unspecified, M10.9 - Gout, unspecified Medications: Discontinued Trelegy Ellipta 100-62.5-25 mcg ([id number]) Discontinued Reason: Doctor's Order 1 inh inhalation DAILY 60 ea 1RF NS Coding Level of Care Code Est Pt Level 3 (77141) Diagnoses Squamous cell lung cancer C34.90 Gout M10.9 HTN (hypertension) I10
[2023-07-23 10:00] VITALS: BP 134/50; PULSE 66; O2SAT 95; BMI 25.3
== END 2023-07-23 11:00 | disposition home or self-care (01) ==
PROVIDERS: PCP Internal Medicine; Visit Provider Internal Medicine
DX: C34.90 Malignant neoplasm of unspecified part of unspecified bronchus or lung (principal); M10.9 Gout, unspecified; I10 Essential (primary) hypertension
CPT/HCPCS: 99213

== ENCOUNTER 2023-08-07 10:00 | Outpatient (REF) | payer MEDICARE, MEDICAID, SELFPAY ==
--- NOTE | ~2023-08-07 | PE_ITS ---
EXAMINATION: Fluorine-18 FDG PET/CT Scan CLINICAL INDICATION: Initial treatment management. 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 Malignant neoplasm of unspecified part of unspecified bronchus. PROCEDURE: 56 minutes following the intravenous administration of 14.9 mCi of fluorine 18 FDG, images from the base of the skull to the mid thighs were obtained using a combined PET/CT scanner with CT scan based attenuation correction. No intravenous contrast was administered. Transverse, coronal, sagittal, and volume reconstruction projections were obtained. The patient's blood glucose as determined by a finger stick, was 98 mg/dl immediately prior to injection. The radiotracer was injected intravenously through the left antecubital superficial vein, without any complications. Total CT exam dose-length product 577.95 mGy-cm * These CT images were obtained using dose optimization techniques as appropriate, variously including the following: Automated exposure control * Adjustment of mA and/or kV according to patient size (this includes techniques or standardized protocols for targeted exams where dose is matched to indication/reason for exam; i.e. extremities or head) * Use of iterative reconstruction technique COMPARISON: CT of the chest done on 07/03/2023 and 04/24/2023 and chest radiograph done on 04/19/2023 and 04/04/2023. FINDINGS: SUV max REFERENCE: Blood: 2.5 (185/267) Liver: 2.3 (144/267). NECK AND VISUALIZED HEAD: No focal tracer avid disease. Specifically, no evidence of any pathologically enlarged, morphologically abnormal cervical lymphadenopathy including supraclavicular lymphadenopathy identified on either side. Subcentimeter hypodense nodule is noted along the posterior inferior part of the left lobe of the thyroid gland without radiotracer avidity, for which no follow-up is recommended. THORAX: The enlarging approximately 1 cm maximum dimension peripheral lung nodule seen within the right middle lobe shows intense tracer avidity with SUV max of 6.3 (182/267), highly suspicious for malignancy either second primary or metastatic disease. Intense tracer avidity is also noted within the central part of the dense airspace opacity seen involving the lingular segment of left upper lobe of the lung with SUV max of 5.0 (182/267), consistent with clinically known biopsy proved squamous cell carcinoma. ABDOMEN AND PELVIS: No tracer avid liver or splenic or adrenal disease. The gallbladder, biliary tree and pancreas appear unremarkable. Vascular calcifications are noted bilaterally, otherwise both kidneys are unremarkable. The bowel loops are decompressed. No tracer avid disease within the bowel. There are no retroperitoneal, mesenteric, pelvic and/or groin lymphadenopathy present. The prostate is slightly heterogeneous, enlarged without any radiotracer avidity. MUSCULOSKELETAL: No suspicious tracer avid disease. VASCULAR: Calcific atherosclerotic disease of the aorta including coronary arteries. No evidence of aneurysm. THE SITE(S) OF MOST INTENSE FDG AVIDITY AND SUV MAX: Peripheral enlarging approximately 1 cm maximum dimension nodule seen within the right middle lobe with SUV max of 6.3. Central tracer avid lingular disease with SUV max of 5.0. PET/PET CT fusion skull to thigh IMPRESSION: 1. Peripheral enlarging approximately 1 cm maximum dimension right middle lobe lung nodule shows intense tracer avidity with SUV max of 6.3, highly suspicious for malignancy. 2. Central tracer avid lingular disease with SUV max of 5.0 corresponding to clinically known malignancy 3. No tracer avid mediastinal, hilar or axillary or supraclavicular lymphadenopathy or extrathoracic tracer avid disease to suspect metastasis.
== END 2023-08-07 10:01 | disposition home or self-care (01) ==
LOC: HO.PET 10:00
PROVIDERS: PCP Internal Medicine; Visit Provider Hospitalist
DX: Z13.89 Encounter for screening for other disorder (principal)

== ENCOUNTER 2023-08-15 08:52 | Outpatient (AMB) | payer MEDICARE, MEDICAID, SELFPAY ==
[2023-08-15 08:59] VITALS: PULSE 68; O2SAT 92; BMI 25.3
--- NOTE | 2023-08-15 08:59 | A.OFFVIS_ITS ---
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 Apparently patient has been developing worsening cough and shortness of breath. Denies any significant night sweats or hemoptysis. Denies any significant weight loss. Ultimately the patient did have a chest x-ray that was abnormal and then followed up with a CT scan of the chest demonstrating significant airspace disease in appears to have an endobronchial obstruction. I am suspicious for a postobstructive pneumonia. Explained to this concerning findings with the patient and his daughter. I did explain that he would need further diagnostic interventions. However, the patient states that he would like to hold off on any invasive or semi invasive diagnostic procedures. I did give him few different options as far as bronchoscopy versus CT-guided biopsy but the patient opted on conservative measures. Therefore, I did give him a prescription for antibiotics and also will prescribe a Acapella valve for chest PT to see if he can clear some mucus out of the airways and see if there can be some improvement. Will plan to repeat the CT scan 6 weeks to see if there is any significant improvement. In the meantime the family will talk with the patient to see if he would want to consider further diagnostic interventions in the near future if still needed. If he decides not to undergo any diagnostic interventions and understands the gravity of the situation then will have to consider talking further about goals of care. also, during the visit we did go for brief walking oximetry in the patient did desaturate to 88% with activity. The patient did qualify for oxygen supplementation with activity. 06/25/2023 the patient is here for a pulmonary follow-up visit. The patient completed the antibiotics. He is also using the flutter valve for chest PT. He is able to get some sputum out. She also using the oxygen with good effect. The oxygen therapy has been affecting beneficial. In the meantime he is scheduled for the CT scan but is not too next week. He still has some crackles on examination specially on the left side is very diminished. I talked to the family and I suspect that the left-sided density probably is not any better. We did talk about if the CT scan continues to be abnormal will perform a bronchoscopy. Explained the procedure to the patient and also to his daughter. The patient understands and is willing to proceed with the procedure. We did go for brief walking oximetry the patient still desaturates down to 88% on room air. after he gets his CT scan we will talk on the phone regarding the next best step. My suspicion is that he will need a bronchoscopy at this time. 08/15/2023 the patient is here for a lmonary follow-up visit. The patient continues to complain of cough and also shortness of breath with activity. [id number] severity. Denies any fevers or chills. Denies any chest pains. 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 He did have endobronchial lesion b locking the lingula near completely. Therefore, explain the postobstructive pneumonia. The patient did undergo a PET scan. We did review it with the patient and also his daughter. He has a significantly PET avid lingular nodular density in addition to that there is a right-sided nodular density that appears to be also concerning for malignancy. No mediastinal involvement. This likely to primary lung cancer separate. The patient is aware of the findings and the results. Will refer him to Oncology at this time. I did recommend he undergo pulmonary function studies and see if he is a candidate for potential stereotactic radiation to both lesions. Unfortunately his PDL1 activity was not detected. [facility] Medical History (Updated 08/15/23 @ 21:00 by Maxwell Garrido MD) Pulmonary nodule Squamous cell lung cancer Situational anxiety Supplemental oxygen dependent Pulmonary nodules Lung mass Hyperlipidemia HTN (hypertension) Surgical History Hx of colonoscopy Hx of shoulder surgery Family History Father No problems noted. Mother No problems noted. Social History Housing: House Housing Other:: , 3 adult children Are you a primary zoo caretaker to a significant other at home: No Do you presently have visiting nurse or other home services: No Patient Tobacco Use Status: Former Tobacco user Quit Date: 2002 Tobacco use type: Cigarette e-Cigarette/Vaping Use: Never Used Current occupational status: retired Cognitive needs: No Hearing needs: No Vision needs: Yes Review of Systems Const All systems reviewed & are unremarkable except as noted in HPI and below Reports no additional complaints Eyes Reports no additional complaints ENT Reports no additional complaints Card Reports no additional complaints Resp Reports no additional complaints GI Reports no additional complaints Reports no additional complaints Physical Exam Vital Signs: Last Vital Signs Pulse 68 08/15/23 08:59 Pulse Ox 92 08/15/23 08:59 Oxygen Delivery Method Room Air 08/15/23 08:59 BMI result Body Mass Index 25.3 Const General: comfortable HEENT Head: Yes normocephalic Neck Neck: Yes supple Chest Chest palpation & inspection: normal inspection of the chest Resp Effort & Inspection: normal respiratory effort Auscultation: diminished lung sounds Cardio Heart sounds: S1 normal heart sound present and S2 normal heart sound present GI Palpation (GI): Soft to palpation Skin General skin exam: no rashes or lesions noted Extrem General: Yes no clubbing, cyanosis or edema Results Reviewed Results Reviewed: personally reviewed PEt scan with pt and daughter. 2 seperate PET avid lesions bilaterlly Assessment & Plan Assessment & Plan (1) Squamous cell lung cancer: Comment: [facility], f/u Dr. Garrido, will have PET scan 07/21 Code(s): C34.90 - Malignant neoplasm of unspecified part of unspecified bronchus or lung (2) Pulmonary nodule: Comment: right sided PET avid nodule likely second primary Code(s): R91.1 - Solitary pulmonary nodule Plan PFTs referral to [facility] Would recommend SBRT Will present at Tumor conference F/U 3-4 months Orders: Orders PFT pulmonary function test Today C34.90 - Malignant neoplasm of unspecified part of unspecified bronchus or lung Referrals Hematology & Oncology Referral C34.90 - Malignant neoplasm of unspecified part of unspecified bronchus or lung Coding Level of Care Code Est Pt Level 5 (93245) Diagnoses Squamous cell lung cancer C34.90 Pulmonary nodule R91.1 Time Spent (min) 35
== END 2023-08-15 09:24 | disposition home or self-care (01) ==
PROVIDERS: PCP Internal Medicine; Visit Provider Hospitalist
DX: C34.90 Malignant neoplasm of unspecified part of unspecified bronchus or lung (principal); R91.1 Solitary pulmonary nodule
CPT/HCPCS: 99214

== ENCOUNTER → 2023-08-15 08:52 | Outpatient (BNVA) | payer MEDICARE, MEDICAID, SELFPAY | PROVIDERS: PCP Internal Medicine; Visit Provider Hospitalist | DX: C34.90 Malignant neoplasm of unspecified part of unspecified bronchus or lung (principal); R91.1 Solitary pulmonary nodule | CPT/HCPCS: 99212 ==

== ENCOUNTER → 2023-08-28 13:09 | Outpatient (BNV) | payer MEDICARE, MEDICAID, SELFPAY | PROVIDERS: PCP Internal Medicine; Visit Provider Internal Medicine | DX: C34.90 Malignant neoplasm of unspecified part of unspecified bronchus or lung (principal) | CPT/HCPCS: 99202; 99204; 99213; 99214; G2211 ==

== ENCOUNTER 2023-09-18 11:44 | Outpatient (REF) | payer MEDICARE, MEDICAID, SELFPAY | END 2023-09-18 11:45 | disposition home or self-care (01) | LOC: HO.RESP 11:44 | PROVIDERS: PCP Internal Medicine; Visit Provider Hospitalist | DX: C34.90 Malignant neoplasm of unspecified part of unspecified bronchus or lung (principal) | CPT/HCPCS: 94010; 94727 ==

== ENCOUNTER 2023-11-19 09:02 | Outpatient (AMB) | payer MEDICARE, MEDICAID, SELFPAY ==
[2023-11-19 09:24] VITALS: BP 102/64; PULSE 63; O2SAT 95; BMI 26.0
--- NOTE | 2023-11-19 09:24 | MHC.OFFVIS ---
Intake Vital Signs 11/19/23 09:24 Height 5 ft 6 in Weight 160 lb 14.999 oz BMI 26.0 BP 102/64 Blood Pressure Location Rt brachial Position Sitting Pulse 63 Pulse Source Doppler Pulse Oximetry (%) 95 Oxygen Delivery Method Room Air Intake Visit Reasons: Lung cancer Allergies No Known Allergies Allergy (Verified 11/19/23 10:19) HPI HPI Comments History of Present Illness Details He is an 83-year-old gentleman non Citizen Of [place]-speaking his daughter is translating and she is very fluent. Apparently patient has been developing worsening cough and shortness of breath. Denies any significant night sweats or hemoptysis. Denies any significant weight loss. Ultimately the patient did have a chest x-ray that was abnormal and then followed up with a CT scan of the chest demonstrating significant airspace disease in appears to have an endobronchial obstruction. I am suspicious for a postobstructive pneumonia. Explained to this concerning findings with the patient and his daughter. I did explain that he would need further diagnostic interventions. However, the patient states that he would like to hold off on any invasive or semi invasive diagnostic procedures. I did give him few different options as far as bronchoscopy versus CT-guided biopsy but the patient opted on conservative measures. Therefore, I did give him a prescription for antibiotics and also will prescribe a Acapella valve for chest PT to see if he can clear some mucus out of the airways and see if there can be some improvement. Will plan to repeat the CT scan 6 weeks to see if there is any significant improvement. In the meantime the family will talk with the patient to see if he would want to consider further diagnostic interventions in the near future if still needed. If he decides not to undergo any diagnostic interventions and understands the gravity of the situation then will have to consider talking further about goals of care. also, during the visit we did go for brief walking oximetry in the patient did desaturate to 88% with activity. The patient did qualify for oxygen supplementation with activity. 06/25/2023 the patient is here for a pulmonary follow-up visit. The patient completed the antibiotics. He is also using the flutter valve for chest PT. He is able to get some sputum out. She also using the oxygen with good effect. The oxygen therapy has been affecting beneficial. In the meantime he is scheduled for the CT scan but is not too next week. He still has some crackles on examination specially on the left side is very diminished. I talked to the family and I suspect that the left-sided density probably is not any better. We did talk about if the CT scan continues to be abnormal will perform a bronchoscopy. Explained the procedure to the patient and also to his daughter. The patient understands and is willing to proceed with the procedure. We did go for brief walking oximetry the patient still desaturates down to 88% on room air. after he gets his CT scan we will talk on the phone regarding the next best step. My suspicion is that he will need a bronchoscopy at this time. 08/15/2023 the patient is here for a pulmonary follow-up visit. The patient continues to complain of cough and also shortness of breath with activity. Ohtn-at-twwaplze severity. Denies any fevers or chills. Denies any chest pains. 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 He did have endobronchial lesion blocking the lingula near completely. Therefore, explain the postobstructive pneumonia. The patient did undergo a PET scan. We did review it with the patient and also his daughter. He has a significantly PET avid lingular nodular density in addition to that there is a right-sided nodular density that appears to be also concerning for malignancy. No mediastinal involvement. This likely to primary lung cancer separate. The patient is aware of the findings and the results. Will refer him to Oncology at this time. I did recommend he undergo pulmonary function studies and see if he is a candidate for potential stereotactic radiation to both lesions. Unfortunately his PDL1 activity was not detected. 11/19/2023 the patient is here for a pulmonary follow-up visit. The patient overall is doing okay. Still having some dyspnea on exertion. Mild in severity. The patient did complete his radiation therapy at [facility]. He tolerated it well. He is currently on cough syrup to try to minimize the cough. He also had pulmonary function studies which we personally reviewed. There appears to be a significant reversible obstruction. Therefore will go ahead and start him on Wixela to try to help him with his reversibility and also to help him with the inflammation that can be induced from the radiation. He is going to use it once a day he is going to rinse his mouth well and then increase it to twice a day if necessary. The patient was also offered a rescue inhaler but does not think he needs it at this time. He will call if any issues. Therefore follow-up in 4 months. He will have additional imaging study I believe at [facility]. [facility] Medical History (Updated 11/19/23 @ 10:18 by Radha Olivares MD) Asthma-COPD overlap syndrome Squamous cell lung cancer (~2022) Pulmonary nodules Supplemental oxygen dependent HTN (hypertension) Hyperlipidemia Mild ascending aorta dilatation Situational anxiety Gout Surgical History History of colonoscopy History of shoulder surgery History of bronchoscopy Family History Father No problems noted. Mother No problems noted. Social History Household Members: Spouse Housing: House Housing Other:: , 3 adult children Are you a primary personal care service provider to a significant other at home: No Do you presently have visiting nurse or other home services: No Patient Tobacco Use Status: Former Tobacco user Quit Date: 2002 Tobacco use type: Cigarette e-Cigarette/Vaping Use: Never Used Have you been hit, kicked, punched, or otherwise hurt by someone within the past year? If so, by whom?: No Do you feel safe in your current relationship?: No Is there a partner from a previous relationship who is making you feel unsafe now?: No Are you made to feel afraid or neglected: No Advance Directives: No Healthcare Proxy: No service: No Current occupational status: retired Sexual orientation: Straight/Heterosexual Gender identity: Male Cognitive needs: No Hearing needs: No Vision needs: Yes Review of Systems Const All systems reviewed & are unremarkable except as noted in HPI and below Reports no additional complaints Eyes Reports no additional complaints ENT Reports no additional complaints Card Reports no additional complaints and Reports dyspnea on exertion Resp Reports cough and Reports dyspnea on exertion GI Reports no additional complaints Reports no additional complaints Physical Exam Vital Signs: Last Vital Signs Pulse 63 11/19/23 09:24 BP 102/64 11/19/23 09:24 Pulse Ox 95 11/19/23 09:24 Oxygen Delivery Method Room Air 11/19/23 09:24 BMI result Body Mass Index 26.0 Const General: comfortable HEENT Head: Yes normocephalic Neck Neck: Yes supple Chest Chest palpation & inspection: normal inspection of the chest Resp Effort & Inspection: normal respiratory effort Auscultation: diminished lung sounds Cardio Heart sounds: S1 normal heart sound present and S2 normal heart sound present GI Palpation (GI): Soft to palpation Skin General skin exam: no rashes or lesions noted Extrem General: Yes no clubbing, cyanosis or edema Assessment & Plan Assessment & Plan (1) Squamous cell lung cancer: Onset Date: ~2022 Comment: ([facility] - dx 06/2023) Code(s): C34.90 - Malignant neoplasm of unspecified part of unspecified bronchus or lung Qualifiers: Laterality: left Qualified Code(s): C34.92 - Malignant neoplasm of unspecified part of left bronchus or lung (2) Pulmonary nodule: Comment: (1cm RML nodule PET avid- suv max 6.3 - likely second primary) Code(s): R91.1 - Solitary pulmonary nodule (3) Asthma-COPD overlap syndrome: Code(s): J44.89 - Other specified chronic obstructive pulmonary disease Plan start Wixela consider ANTHONY as needed s/P SBRT to left sided CA lesion F/U 4 months Medications: New fluticasone propion-salmeterol 250-50 mcg/dose (Wixela Inhub) 1 inh inhalation Q12H 30 days 60 ea 11RF Coding Level of Care Code Est Pt Level 4 (56054) Diagnoses Squamous cell carcinoma of left lung C34.92 Laterality: left Pulmonary nodule R91.1 Asthma-COPD overlap syndrome J44.89 Time Spent (min) 17
== END 2023-11-19 09:44 | disposition home or self-care (01) ==
PROVIDERS: PCP Internal Medicine; Visit Provider Hospitalist
DX: C34.92 Malignant neoplasm of unspecified part of left bronchus or lung (principal); R91.1 Solitary pulmonary nodule; J44.89 Other specified chronic obstructive pulmonary disease
CPT/HCPCS: 99214

== ENCOUNTER → 2023-11-19 09:02 | Outpatient (BNVA) | payer MEDICARE, MEDICAID, SELFPAY | PROVIDERS: PCP Internal Medicine; Visit Provider Hospitalist | DX: C34.92 Malignant neoplasm of unspecified part of left bronchus or lung (principal); R91.1 Solitary pulmonary nodule; J44.89 Other specified chronic obstructive pulmonary disease | CPT/HCPCS: 99212 ==

== ENCOUNTER 2023-12-18 08:58 | Outpatient (REF) | payer MEDICARE, SELFPAY ==
--- NOTE | ~2023-12-18 | PE_ITS ---
EXAMINATION: Fluorine-18 FDG PET/CT Scan CLINICAL INDICATION: Subsequent treatment management. Malignant neoplasm of left lung. Restaging. PROCEDURE: 65 minutes following the intravenous administration of 15.2 mCi of fluorine 18 FDG, images from the base of the skull to the mid thighs were obtained using a combined PET/CT scanner with CT scan based attenuation correction. No intravenous contrast was administered. Transverse, coronal, sagittal, and volume reconstruction projections were obtained. The patient's blood glucose as determined by a finger stick, was 82 mg/dl immediately prior to injection. The radiotracer was injected intravenously through the left antecubital superficial vein, without any complications. Total CT exam dose-length product 593.80 mGy-cm * These CT images were obtained using dose optimization techniques as appropriate, variously including the following: Automated exposure control * Adjustment of mA and/or kV according to patient size (this includes techniques or standardized protocols for targeted exams where dose is matched to indication/reason for exam; i.e. extremities or head) * Use of iterative reconstruction technique COMPARISON: Baseline PET/CT scan done on 08/07/[address] of the chest done on 07/03/2023 and 04/24/2023 and chest radiograph done on 04/19/2023. FINDINGS: SUV max REFERENCE: Blood: 3.1 (current). 2.8 (baseline). Liver: 3.7 (current). 3.5 (baseline). HEAD AND NECK: No abnormal radiotracer uptake. Mucoperiosteal thickening involving the left-sided sphenoid and ethmoidal sinuses without any tracer avidity, new finding since the prior study dated 08/07/2023. No large intracranial hemorrhage, acute territorial infarct or significant shift of midline structures. CHEST: Ports and Devices: None Lungs: Previously documented approximately 1 cm solid tracer avid lung nodules seen along the peripheral part of the right middle lobe has increased in size and tracer intensity, currently measures 2.7 cm at its maximum dimension with SUV max of 14.7 (98/267), previously 6.3, consistent with definite disease progression. Persistent stable mild right suprahilar soft tissue fullness just above the level of the region of the right upper lobe bronchus associated with mild tracer avidity with SUV max of 2.4 appears stable (87/267). Previously documented intense tracer avid disease within the central part of the lingular segment of left upper lobe of the bronchus shows interval resolution. However, currently there is a new focal moderately intense tracer avid disease identified within the consolidated part of the inferior outer lingula abutting the pleural surface with SUV max of 8.6, suspicious for new site of disease. Interval development of extensive groundglass airspace disease present around the lingular segment as well as adjacent part of the superior segment of left lower lobe of the lung. Given the distribution as well as the morphologic appearance, may represent posttreatment changes likely secondary to interval radiation therapy. Please correlate clinically. Alternatively, may represent superimposed evolving pneumonia and less likely to be interstitial spread of neoplasm. Pleura: No significant pleural effusion. Lymph Nodes: No tracer-avid mediastinal, hilar or internal mammary or axillary lymphadenopathy. Mediastinum: There is no significant pericardial effusion/thickening. Breasts/Chest Wall: No abnormal radiotracer uptake. ABDOMEN/PELVIS: Liver/Biliary System: No focal tracer-avid liver lesion. The gallbladder appears unremarkable. Pancreas: Normal.No evidence of pancreatic ductal dilatation. Spleen: No abnormal radiotracer uptake. No evidence of splenomegaly. Adrenal Glands: No abnormal radiotracer uptake. Kidneys: No hydronephrosis, hydroureter or renal calculi bilaterally. Bowel: Small sliding hiatal hernia. No evidence of any bowel obstruction. No focal tracer avid disease. No significant change. Lymph Nodes: No tracer avid retroperitoneal, mesenteric or pelvic and/or groin lymphadenopathy. Pelvic Organs: The urinary bladder is underdistended. Heterogeneous mild tracer avid abnormal enlarged prostate without any superimposed discrete focal abnormality. MUSCULOSKELETAL: No suspicious focal tracer avid disease. VASCULAR: Calcific atherosclerotic disease of the aorta including carotid and coronary artery calcifications. No evidence of aneurysm. THE SITE(S) OF MOST INTENSE FDG AVIDITY AND SUV max: The index enlarging subpleural hypermetabolic lung nodule within the right middle lobe measuring 2.7 cm, previously 1 cm with SUV max of 14.7, previously 6.3. New focal tracer avid disease within the anterior inferior outer aspect of the lingular segment with SUV max of 8.6. PET/PET CT fusion skull to thigh IMPRESSION: Compared to most recent prior baseline study dated 08/07/2023- . The index subpleural peripheral right middle lobar solid noncalcified lung nodule has increased in size (1 cm to 2.7 cm) and tracer avidity (from 6.3 to currently 14.7 SUV max) consistent with interval disease progression. 2. Previously documented tracer avid disease within the central part of the lingular segment of the left upper lobe shows interval resolution. However, there is a new moderately intense focal tracer avid disease identified along the anterior inferior outer aspect of the lingular segment with SUV max of 8.6, consistent with local disease recurrence. 3. Interval development of mild tracer avid groundglass airspace disease seen around the lingula and also involving the superior segment of left lower lobe of the lung, most consistent with posttreatment/radiation therapy related changes. Please correlate clinically. Otherwise may represent superimposed evolving infection, inflammation or local disease extension/lymphangitic spread.
== END 2023-12-18 08:59 | disposition home or self-care (01) ==
LOC: HO.PET 08:58
PROVIDERS: PCP Internal Medicine; Visit Provider Internal Medicine
DX: Z13.89 Encounter for screening for other disorder (principal)

== ENCOUNTER 2024-03-17 09:16 | Outpatient (AMB) | payer MEDICARE, MEDICAID, SELFPAY ==
[2024-03-17 09:32] VITALS: BP 122/60; PULSE 85; O2SAT 89; BMI 23.8
--- NOTE | 2024-03-17 09:32 | MHC.OFFVIS ---
Vital Signs 03/17/24 09:32 Height 5 ft 6 in Weight 147 lb 11.355 oz BMI 23.8 BP 122/60 Blood Pressure Location Lt brachial Position Sitting Pulse 85 Pulse Source Pulse Oximeter Pulse Oximetry (%) 89 L Oxygen Delivery Method Room Air Intake Visit Reasons: Lung cancer [employer]ens And [employer] Prescription Clerk Required: No Allergies No Known Allergies Allergy (Verified 03/17/24 09:34) HPI Comments Details: He is an 84-year-old gentleman non Armenian-speaking his daughter is translating and she is very fluent. Apparently patient has been developing worsening cough and shortness of breath. Denies any significant night sweats or hemoptysis. Denies any significant weight loss. Ultimately the patient did have a chest x-ray that was abnormal and then followed up with a CT scan of the chest demonstrating significant airspace disease in appears to have an endobronchial obstruction. I am suspicious for a postobstructive pneumonia. Explained to this concerning findings with the patient and his daughter. I did explain that he would need further diagnostic interventions. However, the patient states that he would like to hold off on any invasive or semi invasive diagnostic procedures. I did give him few different options as far as bronchoscopy versus CT-guided biopsy but the patient opted on conservative measures. Therefore, I did give him a prescription for antibiotics and also will prescribe a Acapella valve for chest PT to see if he can clear some mucus out of the airways and see if there can be some improvement. Will plan to repeat the CT scan 6 weeks to see if there is any significant improvement. In the meantime the family will talk with the patient to see if he would want to consider further diagnostic interventions in the near future if still needed. If he decides not to undergo any diagnostic interventions and understands the gravity of the situation then will have to consider talking further about goals of care. also, during the visit we did go for brief walking oximetry in the patient did desaturate to 88% with activity. The patient did qualify for oxygen supplementation with activity. 06/25/2023 the patient is here for a pulmonary follow-up visit. The patient completed the antibiotics. He is also using the flutter valve for chest PT. He is able to get some sputum out. She also using the oxygen with good effect. The oxygen therapy has been affecting beneficial. In the meantime he is scheduled for the CT scan but is not too next week. He still has some crackles on examination specially on the left side is very diminished. I talked to the family and I suspect that the left-sided density probably is not any better. We did talk about if the CT scan continues to be abnormal will perform a bronchoscopy. Explained the procedure to the patient and also to his daughter. The patient understands and is willing to proceed with the procedure. We did go for brief walking oximetry the patient still desaturates down to 88% on room air. after he gets his CT scan we will talk on the phone regarding the next best step. My suspicion is that he will need a bronchoscopy at this time. 08/15/2023 the patient is here for a pulmonary follow-up visit. The patient continues to complain of cough and also shortness of breath with activity. [id number] severity. Denies any fevers or chills. Denies any chest pains. 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 He did have endobronchial lesion blocking the lingula near completely. Therefore, explain the postobstructive pneumonia. The patient did undergo a PET scan. We did review it with the patient and also his daughter. He has a significantly PET avid lingular nodular density in addition to that there is a right-sided nodular density that appears to be also concerning for malignancy. No mediastinal involvement. This likely to primary lung cancer separate. The patient is aware of the findings and the results. Will refer him to Oncology at this time. I did recommend he undergo pulmonary function studies and see if he is a candidate for potential stereotactic radiation to both lesions. Unfortunately his PDL1 activity was not detected. 11/19/2023 the patient is here for a pulmonary follow-up visit. The patient overall is doing okay. Still having some dyspnea on exertion. Mild in severity. The patient did complete his radiation therapy at [facility]. He tolerated it well. He is currently on cough syrup to try to minimize the cough. He also had pulmonary function studies which we personally reviewed. There appears to be a significant reversible obstruction. Therefore will go ahead and start him on Wixela to try to help him with his reversibility and also to help him with the inflammation that can be induced from the radiation. He is going to use it once a day he is going to rinse his mouth well and then increase it to twice a day if necessary. The patient was also offered a rescue inhaler but does not think he needs it at this time. He will call if any issues. Therefore follow-up in 4 months. He will have additional imaging study I believe at [facility]. 03/17/2024 the patient is here for pulmonary follow-up visit. He completed the radiation. Since the radiation felt some increased shortness of breath in addition to lower extremity weakness. He did follow-up with Oncology unfortunately he has not candidate for targeted therapy. The patient also is frail in would be very difficult for him to tolerate full chemotherapy. He had blood work done with another potassium. He has been trying to make dietary discretion. She will have another lab check and week or so. In the meantime he continues with respiratory therapy. He also has his oxygen. I did recommend using more often specially when he is moving. The patient also will trial a short course of prednisone to see if there is any radiation pneumonitis. Right now does not have any wheezing on examination. I did talk to the family to look into goals of care and they will discuss that amongst the family. 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 Mother No problems noted. Social History Household Members: Spouse Housing: House Housing Other:: , 3 adult children Are you a primary care professionals to a significant other at home: No Do you presently have visiting nurse or other home services: No Patient Tobacco Use Status: Former Tobacco user Quit Date: 2002 Tobacco use type: Cigarette e-Cigarette/Vaping Use: Never Used service: No Current occupational status: retired Sexual orientation: Straight/Heterosexual Gender identity: Male Cognitive needs: No Hearing needs: No Vision needs: Yes Review of Systems Const All systems reviewed & are unremarkable except as noted in HPI and below Reports no additional complaints and Reports weakness Eyes Reports no additional complaints ENT Reports no additional complaints Card Reports no additional complaints and Reports dyspnea on exertion Resp Reports cough and Reports dyspnea on exertion GI Reports no additional complaints Reports no additional complaints Neuro Reports weakness Physical Exam Vital Signs: Last Vital Signs Pulse 85 03/17/24 09:32 BP 122/60 03/17/24 09:32 Pulse Ox 89 L 03/17/24 09:32 Oxygen Delivery Method Room Air 03/17/24 09:32 BMI result Body Mass Index 23.8 Const General: comfortable HEENT Head: Yes normocephalic Neck Neck: Yes supple Chest Chest palpation & inspection: normal inspection of the chest Resp Effort & Inspection: normal respiratory effort Auscultation: rales and diminished lung sounds Cardio Heart sounds: S1 normal heart sound present and S2 normal heart sound present GI Palpation (GI): Soft to palpation Skin General skin exam: no rashes or lesions noted Extrem General: Yes no clubbing, cyanosis or edema Assessment & Plan Assessment & Plan (1) Squamous cell lung cancer: Onset Date: ~2022 Comment: ([facility] - dx 06/2023) Code(s): C34.90 - Malignant neoplasm of unspecified part of unspecified bronchus or lung Category: Medical Qualifiers: Laterality: left Qualified Code(s): C34.92 - Malignant neoplasm of unspecified part of left bronchus or lung (2) Pulmonary nodule: Comment: (1cm RML nodule PET avid- suv max 6.3 - likely second primary) Code(s): R91.1 - Solitary pulmonary nodule Category: Medical (3) Asthma-COPD overlap syndrome: Code(s): J44.89 - Other specified chronic obstructive pulmonary disease Category: Medical Plan continue Wixela consider ANTHONY as needed s/P SBRT to left sided CA lesion Prednisone taper Bloodwork x 1 week Goals of care F/U 3-4 months Orders: Orders Liver Panel Today C34.92 - Malignant neoplasm of unspecified part of left bronchus or lung, J44.89 - Other specified chronic obstructive pulmonary disease Cell Count w Diff Pleural Fld Today C34.92 - Malignant neoplasm of unspecified part of left bronchus or lung, J44.89 - Other specified chronic obstructive pulmonary disease Basic Metabolic Panel Today C34.92 - Malignant neoplasm of unspecified part of left bronchus or lung, J44.89 - Other specified chronic obstructive pulmonary disease Medications: New prednisone PO daily; Take 2 tabs daily x 10 days, then 1 tab daily x 10 days 30 tabs 0RF 20 days Coding Level of Care Code Est Pt Level 4 (71782) Diagnoses Squamous cell carcinoma of left lung C34.92 Laterality: left Pulmonary nodule R91.1 Asthma-COPD overlap syndrome J44.89 Time Spent (min) 17
== END 2024-03-17 09:50 | disposition home or self-care (01) ==
PROVIDERS: PCP Internal Medicine; Visit Provider Hospitalist
DX: C34.92 Malignant neoplasm of unspecified part of left bronchus or lung (principal); R91.1 Solitary pulmonary nodule; J44.89 Other specified chronic obstructive pulmonary disease
CPT/HCPCS: 99214

== ENCOUNTER → 2024-03-17 09:16 | Outpatient (BNVA) | payer MEDICARE, MEDICAID, SELFPAY | PROVIDERS: PCP Internal Medicine; Visit Provider Hospitalist | DX: C34.92 Malignant neoplasm of unspecified part of left bronchus or lung (principal); R91.1 Solitary pulmonary nodule; J44.89 Other specified chronic obstructive pulmonary disease | CPT/HCPCS: 99212 ==

== ENCOUNTER 2024-03-25 10:03 | Outpatient (REF) | payer MEDICARE, MEDICAID, SELFPAY ==
[2024-03-25 11:09] LABS: Alanine Aminotransferase 9 U/L (0-40); Albumin Level 3.8 g/dL (3.5-5.0); Alkaline Phosphatase 71 U/L (39-117); Anion Gap 12 (12-20); Aspartate Amino Transferase 11 U/L (5-37); Bilirubin Direct 0.2 mg/dL (0.0-0.5); Bilirubin Total 0.3 mg/dL (0.0-1.0); Blood Urea Nitrogen 49 mg/dL (9-16); Calcium 9.4 mg/dL (8.4-10.2); Carbon Dioxide 22 mmol/L (22-29); Chloride 106 mmol/L (96-108); Estimated Glomerular Filt Rate 49; Glucose Random 126 mg/dL (60-115); Potassium 4.4 mmol/L (3.3-5.1); Sodium 136 mmol/L (135-145); Total Protein 7.5 g/dL (6.5-8.0)
== END 2024-03-25 10:04 | disposition home or self-care (01) ==
LOC: HO.LAB 10:03
PROVIDERS: PCP Internal Medicine; Visit Provider Hospitalist
DX: J44.89 Other specified chronic obstructive pulmonary disease (principal); C34.92 Malignant neoplasm of unspecified part of left bronchus or lung
CPT/HCPCS: 36415; 80048; 80076

== ENCOUNTER 2024-04-14 14:27 | Outpatient (REF) | payer MEDICARE, MEDICAID, SELFPAY ==
--- NOTE | ~2024-04-14 | XR_ITS ---
EXAMINATION: XR CHEST CLINICAL INFORMATION: Other specified chronic obstructive pulmonary disease Additional Information: pt states SOB increasing. hx cancer. COMPARISON: PET/CT study December 18, 2023. CT chest July 03, 2023 TECHNIQUE: 2 views of the chest were obtained. FINDINGS: There are patchy and streaky airspace opacities in the lungs bilateral the right and left mid and peripheral lungs. These correlate with the lung masses seen in the chest on the PET/CT study December 18, 2023. Lung masses are better demonstrated on cross sectional imaging studies. No acute airspace disease. No significant pleural effusion. Heart size is normal. Cardiac and mediastinal contours are normal. XR/XR chest 2V IMPRESSION: 1. No acute abnormality of chest. 2. Bilateral lung masses better demonstrated on PET/CT study December 18, 2023.
[2024-04-14 15:53] LABS: Influenza A PCR NEGATIVE (Negative); Influenza B PCR NEGATIVE (Negative); Resp Syncy Virus RNA Qual PCR NEGATIVE (Negative); SARS COV2 PCR INHOUSE NEGATIVE (Negative)
== END 2024-04-14 14:28 | disposition home or self-care (01) ==
LOC: HO.XRAY 14:27
PROVIDERS: PCP Internal Medicine; Visit Provider Hospitalist
DX: J44.89 Other specified chronic obstructive pulmonary disease (principal); R68.83 Chills (without fever); R53.1 Weakness; R05.9 Cough, unspecified
CPT/HCPCS: 0241U; 71046; 99212

== ENCOUNTER 2024-04-14 14:27 | Outpatient (AMB) | payer MEDICARE, MEDICAID, SELFPAY ==
--- NOTE | 2024-04-14 14:35 | MHC.OFFVIS ---
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 Apparently patient has been developing worsening cough and shortness of breath. Denies any significant night sweats or hemoptysis. Denies any significant weight loss. Ultimately the patient did have a chest x-ray that was abnormal and then followed up with a CT scan of the chest demonstrating significant airspace disease in appears to have an endobronchial obstruction. I am suspicious for a postobstructive pneumonia. Explained to this concerning findings with the patient and his daughter. I did explain that he would need further diagnostic interventions. However, the patient states that he would like to hold off on any invasive or semi invasive diagnostic procedures. I did give him few different options as far as bronchoscopy versus CT-guided biopsy but the patient opted on conservative measures. Therefore, I did give him a prescription for antibiotics and also will prescribe a Acapella valve for chest PT to see if he can clear some mucus out of the airways and see if there can be some improvement. Will plan to repeat the CT scan 6 weeks to see if there is any significant improvement. In the meantime the family will talk with the patient to see if he would want to consider further diagnostic interventions in the near future if still needed. If he decides not to undergo any diagnostic interventions and understands the gravity of the situation then will have to consider talking further about goals of care. also, during the visit we did go for brief walking oximetry in the patient did desaturate to 88% with activity. The patient did qualify for oxygen supplementation with activity. 06/25/2023 the patient is here for a pulmonary follow-up visit. The patient completed the antibiotics. He is also using the flutter valve for chest PT. He is able to get some sputum out. She also using the oxygen with good effect. The oxygen therapy has been affecting beneficial. In the meantime he is scheduled for the CT scan but is not too next week. He still has some crackles on examination specially on the left side is very diminished. I talked to the family and I suspect that the left-sided density probably is not any better. We did talk about if the CT scan continues to be abnormal will perform a bronchoscopy. Explained the procedure to the patient and also to his daughter. The patient understands and is willing to proceed with the procedure. We did go for brief walking oximetry the patient still desaturates down to 88% on room air. after he gets his CT scan we will talk on the phone regarding the next best step. My suspicion is that he will need a bronchoscopy at this time. 08/15/2023 the patient is here for a pulmonary follow-up visit. The patient continues to complain of cough and also shortness of breath with activity. [id number] severity. Denies any fevers or chills. Denies any chest pains. 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 He did have endobronchial lesion blocking the lingula near completely. Therefore, explain the postobstructive pneumonia. The patient did undergo a PET scan. We did review it with the patient and also his daughter. He has a significantly PET avid lingular nodular density in addition to that there is a right-sided nodular density that appears to be also concerning for malignancy. No mediastinal involvement. This likely to primary lung cancer separate. The patient is aware of the findings and the results. Will refer him to Oncology at this time. I did recommend he undergo pulmonary function studies and see if he is a candidate for potential stereotactic radiation to both lesions. Unfortunately his PDL1 activity was not detected. 11/19/2023 the patient is here for a pulmonary follow-up visit. The patient overall is doing okay. Still having some dyspnea on exertion. Mild in severity. The patient did complete his radiation therapy at [facility]. He tolerated it well. He is currently on cough syrup to try to minimize the cough. He also had pulmonary function studies which we personally reviewed. There appears to be a significant reversible obstruction. Therefore will go ahead and start him on Wixela to try to help him with his reversibility and also to help him with the inflammation that can be induced from the radiation. He is going to use it once a day he is going to rinse his mouth well and then increase it to twice a day if necessary. The patient was also offered a rescue inhaler but does not think he needs it at this time. He will call if any issues. Therefore follow-up in 4 months. He will have additional imaging study I believe at [facility]. 03/17/2024 the patient is here for pulmonary follow-up visit. He completed the radiation. Since the radiation felt some increased shortness of breath in addition to lower extremity weakness. He did follow-up with Oncology unfortunately he has not candidate for targeted therapy. The patient also is frail in would be very difficult for him to tolerate full chemotherapy. He had blood work done with another potassium. He has been trying to make dietary discretion. She will have another lab check and week or so. In the meantime he continues with respiratory therapy. He also has his oxygen. I did recommend using more often specially when he is moving. The patient also will trial a short course of prednisone to see if there is any radiation pneumonitis. Right now does not have any wheezing on examination. I did talk to the family to look into goals of care and they will discuss that amongst the family. 04/14/2024 the patient is here for a pulmonary sick visit. He has been having worsening shortness of breath symptoms. Also felt cold and chills. Therefore we did swab for RSV COVID and influenza. Was all negative. The patient has been complaining of hypoxia. He does have oxygen at home. He has a hard time caring the oxygen least the bigger portable tanks. Therefore, I did place him on a be cylinder 1 L flow and the patient seemed to maintain a pulse ox above 90%. Therefore hopefully with continuous flow he will get relief of the low flow rate so he can have longer duration with smaller tank. The patient also completed the radiation therapy. 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 Will go ahead and give him another course and go ahead and start him on doxycycline cases developing a postobstructive process. Will go ahead and request a chest x-ray. There is any suggestion of bronchopneumonia will start him on a 2nd antibiotic regimen. But at this point I do believe this likely related to the radiation pneumonitis. The patient will undergo a CT scan in a few weeks from now. If he has any worsening symptoms will call for an earlier assessment. However, if his symptoms are no better with the medication he will call the office for an earlier CT scan. the patient still does not have a code status at least on record. Will have to address that during the next visit. [facility], [facility] Medical History (Updated 04/14/24 @ 14:55 by Maxwell Garrido MD) Weakness Chills Asthma-COPD overlap syndrome Squamous cell lung cancer (~2022) Pulmonary nodules Supplemental oxygen dependent HTN (hypertension) Hyperlipidemia Mild ascending aorta dilatation Situational anxiety Gout Surgical History History of colonoscopy History of shoulder surgery History of bronchoscopy Family History Father No problems noted. Mother No problems noted. Social History Household Members: Spouse Housing: House Housing Other:: , 3 adult children Are you a primary director critical care to a significant other at home: No Do you presently have visiting nurse or other home services: No Patient Tobacco Use Status: Former Tobacco user Tobacco use type: Cigarette e-Cigarette/Vaping Use: Never Used service: No Current occupational status: retired Sexual orientation: Straight/Heterosexual Gender identity: Male Cognitive needs: No Hearing needs: No Vision needs: Yes Review of Systems Const All systems reviewed & are unremarkable except as noted in HPI and below Reports no additional complaints, Reports body aches, Reports chills, Reports fatigue and Reports weakness Eyes Reports no additional complaints ENT Reports no additional complaints Card Reports no additional complaints, Reports dyspnea and Reports dyspnea on exertion Resp Reports cough, Reports dyspnea and Reports dyspnea on exertion GI Reports no additional complaints Reports no additional complaints Neuro Reports weakness Endo Reports fatigue Physical Exam Vital Signs: Last Vital Signs Pulse 88 04/14/24 14:40 Pulse Ox 95 04/14/24 14:40 Oxygen Delivery Method Room Air 04/14/24 14:40 BMI result Body Mass Index 23.8 Const General: comfortable HEENT Head: Yes normocephalic Neck Neck: Yes supple Chest Chest palpation & inspection: normal inspection of the chest Resp Effort & Inspection: normal respiratory effort Auscultation: rales and diminished lung sounds Cardio Heart sounds: S1 normal heart sound present and S2 normal heart sound present GI Palpation (GI): Soft to palpation Skin General skin exam: no rashes or lesions noted Extrem General: Yes no clubbing, cyanosis or edema Assessment & Plan Assessment & Plan (1) Squamous cell lung cancer: Onset Date: ~2022 Comment: ([facility] - dx 06/2023) Code(s): C34.90 - Malignant neoplasm of unspecified part of unspecified bronchus or lung Category: Medical Qualifiers: Laterality: left Qualified Code(s): C34.92 - Malignant neoplasm of unspecified part of left bronchus or lung (2) Pulmonary nodule: Comment: (1cm RML nodule PET avid- suv max 6.3 - likely second primary) Code(s): R91.1 - Solitary pulmonary nodule Category: Medical (3) Asthma-COPD overlap syndrome: Code(s): J44.89 - Other specified chronic obstructive pulmonary disease Category: Medical Plan continue Wixela consider ANTHONY as needed s/P SBRT to left sided CA lesion Prednisone taper start doxycycline CXR Goals of care oxygen revision: B cylinders 1l/min with activity and 2L with sleep F/U 2-3 months Orders: Orders XR chest 2V Today J44.89 - Other specified chronic obstructive pulmonary disease SARS-CoV2/FLU/RSV Today R53.1 - Weakness, R68.83 - Chills (without fever) Medications: New doxycycline monohydrate 100 mg PO BID 28 tabs 0RF 14 days Refilled prednisone PO daily; Take 2 tabs daily x 10 days, then 1 tab daily x 10 days 30 tabs 0RF 20 days Coding Level of Care Code Est Pt Level 4 (64722) Diagnoses Squamous cell carcinoma of left lung C34.92 Laterality: left Pulmonary nodule R91.1 Asthma-COPD overlap syndrome J44.89 Time Spent (min) 17
[2024-04-14 14:40] VITALS: PULSE 88; O2SAT 95; BMI 23.8
== END 2024-04-14 14:57 | disposition home or self-care (01) ==
PROVIDERS: PCP Internal Medicine; Visit Provider Hospitalist
DX: C34.92 Malignant neoplasm of unspecified part of left bronchus or lung (principal); R91.1 Solitary pulmonary nodule; J44.89 Other specified chronic obstructive pulmonary disease
CPT/HCPCS: 99214

== ENCOUNTER 2024-05-13 10:45 | Outpatient (REF) | payer MEDICARE, MEDICAID, SELFPAY ==
--- NOTE | ~2024-05-13 | CT_ITS ---
EXAMINATION: CT CHEST WITH CONTRAST CLINICAL INFORMATION: Assess response to treatment. COMPARISON: CTA chest 05/15/[address] 07/03/2023 TECHNIQUE: Multidetector volumetric CT imaging of the chest was obtained after the administration of 65 mL of Omnipaque 350 intravenous contrast without immediate adverse reactions. Axial MIP volume rendering provided. Sagittal and coronal reformatted images were obtained. This CT examination was performed using dose optimization techniques as appropriate, variously including the following: *Automated exposure control *Adjustment of mA and/or kV according to patient size (this includes techniques or standardized protocols for targeted exams where dose is matched to indication/reason for exam; i.e. extremities or head) *Use of iterative reconstruction technique DLP: 124 mGy-cm FINDINGS: Motion artifact technically degrades image quality. LUNGS: Moderate centrilobular and paraseptal emphysema. Diffuse subpleural reticular changes. The previously demonstrated irregular mass in the left upper lobe is obscured. Multifocal areas of consolidation involving the right upper lobe, right middle lobe, right lower lobe, left lower lobe and left upper lobe with air bronchograms. Larger 5 mm nodule left upper lobe on image 59 of series 6. New 5 mm left upper lobe nodule on image 72 of series 6. New 4 mm left upper lobe nodule on image 65 of series 6. There are possibly inflammatory nodules in the posterior right upper lobe on images 82 through 90 of series 6. Stable 4 mm subpleural nodule right lower lobe on image 156 of series 6. Stable 4 mm nodule right middle lobe on image 142 of series 6. Stable 3 mm nodule right middle lobe on image 166 of series 6. MEDIASTINUM: Imaged thyroid gland is heterogeneous. No bulky axillary, hilar or mediastinal lymphadenopathy. Great vessels are of normal caliber heart size is normal. No pericardial effusion. Moderate coronary artery calcifications. Nonspecific esophageal wall thickening. PLEURA: Small right pleural effusion. UPPER ABDOMEN: Small hiatal hernia. Scattered hepatic hypodensities OSSEOUS STRUCTURES: No destructive bone lesions. CT/CT chest w IV con IMPRESSION: New multifocal consolidation obscuring the previously demonstrated irregular mass in the left upper lobe/lingula. This may be related to radiation induced pneumonitis versus infectious pneumonia. Multiple bilateral pulmonary nodules measuring up to 5 mm. The nodules in the left upper lobe are new or more conspicuous than on the prior study concerning for metastatic disease. Few right lower lobe and right middle lobe pulmonary nodules are stable. Small right pleural effusion.
[2024-05-13 10:56] LABS: MANUAL DIFF FLAG NO
[2024-05-13 11:05] LABS: Basophils Percent Auto 0.5 % (0-2); Eosinophils Absolute Auto 0.2 X10*3/uL (0.0-0.4); Eosinophils Percent Auto 3.6 % (0-4); Hematocrit 35.2 % (42.0-52.0); Hemoglobin 11.5 g/dl (14.0-18.0); Imm Gran Abs Auto 0.07 X10*3/uL (0.00-0.03); Imm Gran Pct Auto 1.2 % (0.0-0.4); Lymphocytes Absolute Auto 0.8 X10*3/uL (1.2-4.9); Lymphocytes Percent Auto 14.1 % (20-40); Mean Corpuscular HGB Conc 32.7 g/dl (31.0-36.0); Mean Corpuscular Volume 85.9 fL (80.0-98.0); Monocytes Absolute Auto 0.7 X10*3/uL (0.1-1.2); Monocytes Percent Auto 12.1 % (2-11); Neutrophils Percent Auto 68.5 % (45-73); Platelet Count 218 X10*3/uL (160-400); Red Cell Distribution Width 17.8 % (11.0-16.0); White Blood Count 5.8 X10*3/uL (4.8-10.8)
[2024-05-13 11:24] LABS: Anion Gap 14 (12-20); Blood Urea Nitrogen 29 mg/dL (9-16); Calcium 9.1 mg/dL (8.4-10.2); Carbon Dioxide 20 mmol/L (22-29); Chloride 104 mmol/L (96-108); Estimated Glomerular Filt Rate > 60; Glucose Random 111 mg/dL (60-115); Potassium 4.7 mmol/L (3.3-5.1); Sodium 133 mmol/L (135-145)
[2024-05-13 11:31] LABS: D Dimer High Sensitivity 372 NG/ML
[2024-05-13 11:47] LABS: Erythrocyte Sedimentation Rate 80 MM/HR (0-15)
[2024-05-13] MEDS: iohexoL 350 MG/ML 100 ML INFUS..BTL 65 ML IV (11:52)
== END 2024-05-13 10:46 | disposition home or self-care (01) ==
LOC: HO.CT 10:45
PROVIDERS: Absent Provider Hospitalist; PCP Internal Medicine; Visit Provider Internal Medicine
DX: C34.90 Malignant neoplasm of unspecified part of unspecified bronchus or lung (principal); R06.09 Other forms of dyspnea
CPT/HCPCS: 36415; 71260; 80048; 85025; 85379; 85652; Q9967

== ENCOUNTER 2024-05-15 07:47 | Outpatient (REF) | payer MEDICARE, MEDICAID, SELFPAY ==
--- NOTE | ~2024-05-15 | CT_ITS ---
EXAMINATION: CT ANGIOGRAM OF THE CHEST WITH AND WITHOUT CONTRAST (CT PULMONARY ANGIOGRAM FOR PE) CLINICAL INFORMATION: Reason for Exam R78.89 - Finding of other specified substances, not normally found in blood. History of shortness of breath. History of squamous cell carcinoma of left lung. COMPARISON: Chest CT from 07/03/2023 and 05/13/2024. PET CT imaging from 12/18/2023. TECHNIQUE: Prior to contrast administration, noncontrast localization images were obtained. Subsequently, multidetector volumetric imaging was performed from the thoracic inlet to below the diaphragms following the administration of 65 mL Omnipaque 350 intravenous contrast. No contrast reaction reported. Sagittal, coronal, and MIP oblique sagittal reformatted images were obtained on the CT workstation, uploaded to PACS, and reviewed. This CT examination was performed using dose optimization techniques as appropriate, variously including the following: *Automated exposure control *Adjustment of mA and/or kV according to patient size (this includes techniques or standardized protocols for targeted exams where dose is matched to indication/reason for exam; i.e. extremities or head) *Use of iterative reconstruction technique DLP: Total exam dose-length product 146 mGy-cm FINDINGS: LUNGS AND PLEURA: There is mild respiratory motion on these images the chest. Moderate centrilobular and paraseptal emphysema. There are bilateral pulmonary opacities that remain similar in appearance compared to 05/13/2024 but are new or have evolved since 12/18/2023 and require clinical correlation. The right middle lobe lesion in contact with the minor fissure that measured 2.7 cm on 12/18/2023 is not well seen on this current exam due to presence of new opacities in the lung. This middle lobe lesion is approximately 2.2 cm maximum dimension on the axial images (image 330, series 10). The new patchy airspace and groundglass opacities in the right upper and right lower lobes could represent radiation induced pneumonitis. Alternatively, there is recent onset of cough, fever and leukocytosis, superimposed infectious pneumonia would be considered. Findings include some new groundglass opacities in the medial right upper lobe and patchy opacities in the right middle lobe. Trace bilateral pleural effusions are present. There is a stable 0.4 cm solid, noncalcified nodule within the right middle lobe (image 410, series 10). Nonspecific small 0.3 cm nodular focus in the posterior right upper lobe (image 186, series 10). 0.5 cm solid nodule in the posterior left upper lobe is probably a metastasis; it was smaller, approximately 0.3 cm on 12/18/2023 (image 167, series 10). A small solid nodule of 0.4 cm maximum dimension in the left upper lobe is new compared to 12/18/2023 (image 184, series 10). Interval increased consolidative opacity with air bronchograms of the lingula and adjacent left lower lobe requires clinical correlation. This could represent evolution of radiation-induced pneumonitis and fibrosis. QUALITY OF STUDY/CONTRAST BOLUS: Satisfactory. PULMONARY ARTERIES: The pulmonary arteries are normal in size. No embolic filling defects within the main, lobar or segmental vessels. OTHER CARDIOVASCULAR: Cardiac chambers are normal in size. No pericardial effusion. There is atherosclerotic calcification of the thoracic aorta without aneurysm or dissection. Multivessel coronary artery atherosclerotic calcification is present. MEDIASTINUM/LOWER NECK: No mediastinal mass. The esophagus has normal wall thickness. Again noted is a chronically enlarged multinodular thyroid goiter. No new thyroid abnormalities. Clinically determine whether there is any need for thyroid ultrasound evaluation. LYMPHATICS: No pathologic sized axillary, hilar or mediastinal lymph nodes. UPPER ABDOMEN: No acute abnormality. 1.3 cm simple cyst is seen in the left lobe of liver. OSSEOUS STRUCTURES: Bones are diffusely osteopenic. 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 Note that evaluation of some the ribs is slightly limited by motion degradation of images. CT/CT angio chest PE protocol IMPRESSION: * No evidence of pulmonary embolism. * Moderate pulmonary emphysema. * Bilateral pulmonary opacities and trace pleural effusions remain similar in appearance compared to 05/13/2024, but many of these opacities are new or have evolved since 12/18/2023. The vast majority of the abnormalities are presumably due to radiation treatment and could represent noninfectious pneumonitis. However, this imaging exam would not exclude any superimposed infectious pneumonia. * There are new and enlarging nodules in the posterior left upper lobe. * Multinodular thyroid goiter.
[2024-05-15] MEDS: iohexoL 350 MG/ML 100 ML INFUS..BTL 65 ML IV (08:49)
== END 2024-05-15 07:48 | disposition home or self-care (01) ==
LOC: HO.CT 07:47
PROVIDERS: Visit Provider Hospitalist
DX: R06.09 Other forms of dyspnea (principal); R78.89 Finding of other specified substances, not normally found in blood
CPT/HCPCS: 71275; Q9967

== ENCOUNTER 2024-06-23 10:30 | Outpatient (AMB) | payer MEDICARE, MEDICAID, SELFPAY ==
--- NOTE | 2024-06-23 10:43 | A.OFFVIS_ITS ---
Vital Signs 06/23/24 10:44 Height 5 ft 6 in Weight 154 lb 5.177 oz BMI 24.9 Pulse 89 Pulse Source Pulse Oximeter Pulse Oximetry (%) 97 Oxygen Delivery Method Room Air Comment 2 Liters Oxygen([employer]) Intake Visit Reasons: Lung cancer Chief Pharmacist Required: No Allergies No Known Allergies Allergy (Verified 06/23/24 10:45) HPI Comments Details: He is an 84-year-old gentleman non Norwegian-speaking his daughter is translating and she is very fluent. Apparently patient has been developing worsening cough and shortness of breath. Denies any significant night sweats or hemoptysis. Denies any significant weight loss. Ultimately the patient did have a chest x- ray that was abnormal and then followed up with a CT scan of the chest demonstrating significant airspace disease in appears to have an endobronchial obstruction. I am suspicious for a postobstructive pneumonia. Explained to this concerning findings with the patient and his daughter. I did explain that he would need further diagnostic interventions. However, the patient states that he would like to hold off on any invasive or semi invasive diagnostic procedures. I did give him few different options as far as bronchoscopy versus CT-guided biopsy but the patient opted on conservative measures. Therefore, I did give him a prescription for antibiotics and also will prescribe a Acapella valve for chest PT to see if he can clear some mucus out of the airways and see if there can be some improvement. Will plan to repeat the CT scan 6 weeks to see if there is any significant improvement. In the meantime the family will talk with the patient to see if he would want to consider further diagnostic interventions in the near future if still needed. If he decides not to undergo any diagnostic interventions and understands the gravity of the situation then will have to consider talking further about goals of care. also, during the visit we did go for brief walking oximetry in the patient did desaturate to 88% with activity. The patient did qualify for oxygen supplementation with activity. 06/25/2023 the patient is here for a pulmonary follow-up visit. The patient completed the antibiotics. He is also using the flutter valve for chest PT. He is able to get some sputum out. She also using the oxygen with good effect. The oxygen therapy has been affecting beneficial. In the meantime he is scheduled for the CT scan but is not too next week. He still has some crackles on examination specially on the left side is very diminished. I talked to the family and I suspect that the left-sided density probably is not any better. We did talk about if the CT scan continues to be abnormal will perform a bronchoscopy. Explained the procedure to the patient and also to his daughter. The patient understands and is willing to proceed with the procedure. We did go for brief walking oximetry the patient still desaturates down to 88% on room air. after he gets his CT scan we will talk on the phone regarding the next best step. My suspicion is that he will need a bronchoscopy at this time. 08/15/2023 the patient is here for a pulmonary follow-up visit. The patient continues to complain of cough and also shortness of breath with activity. Tikq-zs-petsxwyw severity. Denies any fevers or chills. Denies any chest pains. 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 He did have endobronchial lesion blocking the lingula near completely. Therefore, explain the postobstructive pneumonia. The patient did undergo a PET scan. We did review it with the patient and also his daughter. He has a significantly PET avid lingular nodular density in addition to that there is a right-sided nodular density that appears to be also concerning for malignancy. No mediastinal involvement. This likely to primary lung cancer separate. The patient is aware of the findings and the results. Will refer him to Oncology at this time. I did recommend he undergo pulmonary function studies and see if he is a candidate for potential stereotactic radiation to both lesions. Unfortunately his PDL1 activity was not detected. 11/19/2023 the patient is here for a pulmonary follow-up visit. The patient overall is doing okay. Still having some dyspnea on exertion. Mild in severity. The patient did complete his radiation therapy at [facility]. He tolerated it well. He is currently on cough syrup to try to minimize the cough. He also had pulmonary function studies which we personally reviewed. There appears to be a significant reversible obstruction. Therefore will go ahead and start him on Wixela to try to help him with his reversibility and also to help him with the inflammation that can be induced from the radiation. He is going to use it once a day he is going to rinse his mouth well and then increase it to twice a day if necessary. The patient was also offered a rescue inhaler but does not think he needs it at this time. He will call if any issues. Therefore follow-up in 4 months. He will have additional imaging study I believe at [facility]. 03/17/2024 the patient is here for pulmonary follow-up visit. He completed the radiation. Since the radiation felt some increased shortness of breath in addition to lower extremity weakness. He did follow-up with Oncology unfortunately he has not candidate for targeted therapy. The patient also is frail in would be very difficult for him to tolerate full chemotherapy. He had blood work done with another potassium. He has been trying to make dietary discretion. She will have another lab check and week or so. In the meantime he continues with respiratory therapy. He also has his oxygen. I did recommend using more often specially when he is moving. The patient also will trial a short course of prednisone to see if there is any radiation pneumonitis. Right now does not have any wheezing on examination. I did talk to the family to look into goals of care and they will discuss that amongst the family. 04/14/2024 the patient is here for a pulmonary sick visit. He has been having worsening shortness of breath symptoms. Also felt cold and chills. Therefore we did swab for RSV COVID and influenza. Was all negative. The patient has been complaining of hypoxia. He does have oxygen at home. He has a hard time caring the oxygen least the bigger portable tanks. Therefore, I did place him on a be cylinder 1 L flow and the patient seemed to maintain a pulse ox above 90%. Therefore hopefully with continuous flow he will get relief of the low flow rate so he can have longer duration with smaller tank. The patient also completed the radiation therapy. 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 Will go ahead and give him another course and go ahead and start him on doxycycline cases developing a postobstructive process. Will go ahead and request a chest x-ray. There is any suggestion of bronchopneumonia will start him on a 2nd antibiotic regimen. But at this point I do believe this likely related to the radiation pneumonitis. The patient will undergo a CT scan in a few weeks from now. If he has any worsening symptoms will call for an earlier assessment. However, if his symptoms are no better with the medication he will call the office for an earlier CT scan. the patient still does not have a code status at least on record. Will have to address that during the next visit. 06/23/2024 the patient is here for a pulmonary follow-up visit. Overall the patient has appears to be doing a little better. He is tolerating the oxygen well. He is also a eating more with good appetite. He continues his respiratory therapy as prescribed. The patient already completed the antibiotics and the prednisone. We did again review the CT scan from April demonstrating some new nodular densities increasing size concerning for the possibility of progression of the cancer in addition to that significant interstitial lung disease which could be secondary to pneumonitis from radiation. Although infection is also in differential. We did go ahead and treat him with antibiotics already clinically the patient is doing better as well. Will plan to him come back and have a repeat chest x-ray make sure that there is interval improvement of the parenchymal issues. Hopefully the patient continues to do well Then we can repeat the CT scan closer to August. if the patient however has any worsening symptoms we consider re- evaluating her earlier time. The the family is present and they are aware that the new nodular densities may indeed be progression of disease. I did provide him with incentive spirometer we did go with the instructions on how to use it. In addition to that online pulmonary rehabilitation since the patient is not able to attend in person rehab. 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 Mother No problems noted. Social History Household Members: Spouse Housing: House Housing Other:: , 3 adult children Are you a primary early breastfeeding care specialist to a significant other at home: No Do you presently have visiting nurse or other home services: No Patient Tobacco Use Status: Former Tobacco user Tobacco use type: Cigarette e-Cigarette/Vaping Use: Never Used service: No Current occupational status: retired Sexual orientation: Straight/Heterosexual Gender identity: Male Cognitive needs: No Hearing needs: No Vision needs: Yes Review of Systems Const All systems reviewed & are unremarkable except as noted in HPI and below Reports no additional complaints, Reports body aches, Reports chills, Reports fatigue and Reports weakness Eyes Reports no additional complaints ENT Reports no additional complaints Card Reports no additional complaints and Reports dyspnea on exertion Resp Reports cough and Reports dyspnea on exertion GI Reports no additional complaints Reports no additional complaints Neuro Reports weakness Endo Reports fatigue Physical Exam Vital Signs: Last Vital Signs Pulse 89 06/23/24 10:44 Pulse Ox 97 06/23/24 10:44 Oxygen Delivery Method Room Air 06/23/24 10:44 BMI result Body Mass Index 24.9 Const General: comfortable HEENT Head: Yes normocephalic Neck Neck: Yes supple Chest Chest palpation & inspection: normal inspection of the chest Resp Effort & Inspection: normal respiratory effort Auscultation: no rales and diminished lung sounds Cardio Heart sounds: S1 normal heart sound present and S2 normal heart sound present GI Palpation (GI): Soft to palpation Skin General skin exam: no rashes or lesions noted Extrem General: Yes no clubbing, cyanosis or edema Results Reviewed Results Reviewed: [address] [address] [address] Scan Report Signed Patient: Farrukh Lanza MR#: [id number] : 1940 Acct:[id number] Age/Sex: 84 / M ADM Date: 05/15/24 Loc: HO.CT Attending Dr: Maxwell Garrido MD Ordering Physician: Maxwell Garrido MD Date of Service: 05/15/24 Procedure(s): CT angio chest PE protocol Accession Number(s): [id number] cc: Maxwell Garrido MD~ EXAMINATION: CT ANGIOGRAM OF THE CHEST WITH AND WITHOUT CONTRAST (CT PULMONARY ANGIOGRAM FOR PE) CLINICAL INFORMATION: Reason for Exam R78.89 - Finding of other specified substances, not normally found in blood. History of shortness of breath. History of squamous cell carcinoma of left lung. COMPARISON: Chest CT from 07/03/2023 and 05/13/2024. PET CT imaging from 12/18/2023. TECHNIQUE: Prior to contrast administration, noncontrast localization images were obtained. Subsequently, multidetector volumetric imaging was performed from the thoracic inlet to below the diaphragms following the administration of 65 mL Omnipaque 350 intravenous contrast. No contrast reaction reported. Sagittal, coronal, and MIP oblique sagittal reformatted images were obtained on the CT workstation, uploaded to PACS, and reviewed. This CT examination was performed using dose optimization techniques as appropriate, variously including the following: *Automated exposure control *Adjustment of mA and/or kV according to patient size (this includes techniques or standardized protocols for targeted exams where dose is matched to indication/reason for exam; i.e. extremities or head) *Use of iterative reconstruction technique DLP: Total exam dose-length product 146 mGy-cm FINDINGS: LUNGS AND PLEURA: There is mild respiratory motion on these images the chest. Moderate centrilobular and paraseptal emphysema. There are bilateral pulmonary opacities that remain similar in appearance compared to 05/13/2024 but are new or have evolved since 12/18/2023 and require clinical correlation. The right middle lobe lesion in contact with the minor fissure that measured 2.7 cm on 12/18/2023 is not well seen on this current exam due to presence of new opacities in the lung. This middle lobe lesion is approximately 2.2 cm maximum dimension on the axial images (image 330, series 10). The new patchy airspace and groundglass opacities in the right upper and right lower lobes could represent radiation induced pneumonitis. Alternatively, there is recent onset of cough, fever and leukocytosis, superimposed infectious pneumonia would be considered. Findings include some new groundglass opacities in the medial right upper lobe and patchy opacities in the right middle lobe. Trace bilateral pleural effusions are present. There is a stable 0.4 cm solid, noncalcified nodule within the right middle lobe (image 410, series 10). Nonspecific small 0.3 cm nodular focus in the posterior right upper lobe (image 186, series 10). 0.5 cm solid nodule in the posterior left upper lobe is probably a metastasis; it was smaller, approximately 0.3 cm on 12/18/2023 (image 167, series 10). A small solid nodule of 0.4 cm maximum dimension in the left upper lobe is new compared to 12/18/2023 (image 184, series 10). Interval increased consolidative opacity with air bronchograms of the lingula and adjacent left lower lobe requires clinical correlation. This could represent evolution of radiation-induced pneumonitis and fibrosis. QUALITY OF STUDY/CONTRAST BOLUS: Satisfactory. PULMONARY ARTERIES: The pulmonary arteries are normal in size. No embolic filling defects within the main, lobar or segmental vessels. OTHER CARDIOVASCULAR: Cardiac chambers are normal in size. No pericardial effusion. There is atherosclerotic calcification of the thoracic aorta without aneurysm or dissection. Multivessel coronary artery atherosclerotic calcification is present. MEDIASTINUM/LOWER NECK: No mediastinal mass. The esophagus has normal wall thickness. Again noted is a chronically enlarged multinodular thyroid goiter. No new thyroid abnormalities. Clinically determine whether there is any need for thyroid ultrasound evaluation. LYMPHATICS: No pathologic sized axillary, hilar or mediastinal lymph nodes. UPPER ABDOMEN: No acute abnormality. 1.3 cm simple cyst is seen in the left lobe of liver. OSSEOUS STRUCTURES: Bones are diffusely osteopenic. 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 Note that evaluation of some the ribs is slightly limited by motion degradation of images. CT/CT angio chest PE protocol IMPRESSION: * No evidence of pulmonary embolism. * Moderate pulmonary emphysema. * Bilateral pulmonary opacities and trace pleural effusions remain similar in appearance compared to 05/13/2024, but many of these opacities are new or have evolved since 12/18/2023. The vast majority of the abnormalities are presumably due to radiation treatment and could represent noninfectious pneumonitis. However, this imaging exam would not exclude any superimposed infectious pneumonia. * There are new and enlarging nodules in the posterior left upper lobe. * Multinodular thyroid goiter. Dictated By: Eliseo Mark MD Signed By: <Electronically signed by Eliseo Mark MD in OV> 05/15/24 1015 DD/ 0914 TD/TT: [employer] Teacher: PD Assessment & Plan Assessment & Plan (1) Squamous cell lung cancer: Onset Date: ~2022 Comment: ([facility] - dx 06/2023) Code(s): C34.90 - Malignant neoplasm of unspecified part of unspecified bronchus or lung Category: Medical Qualifiers: Laterality: left Qualified Code(s): C34.92 - Malignant neoplasm of unspecified part of left bronchus or lung (2) Pulmonary nodule: Comment: (1cm RML nodule PET avid- suv max 6.3 - likely second primary) Code(s): R91.1 - Solitary pulmonary nodule Category: Medical (3) Asthma-COPD overlap syndrome: Code(s): J44.89 - Other specified chronic obstructive pulmonary disease Category: Medical (4) Pneumonitis: Code(s): J98.4 - Other disorders of lung Category: Medical Plan continue Wixela consider ANTHONY as needed s/P SBRT to left sided CA lesion completed Prednisone taper completed doxycycline CXR in 2-3 months Goals of care oxygen revision: B cylinders 1l/min with activity and 2L with sleep F/U 2-3 months Orders: Orders XR chest 2V Today J44.89 - Other specified chronic obstructive pulmonary disease Coding Level of Care Code Est Pt Level 4 (86002) Complex EM visit Add On G2211 Diagnoses Squamous cell carcinoma of left lung C34.92 Laterality: left Pulmonary nodule R91.1 Asthma-COPD overlap syndrome J44.89 Pneumonitis J98.4 Time Spent (min) 17
[2024-06-23 10:44] VITALS: PULSE 89; O2SAT 97; BMI 24.9
== END 2024-06-23 11:19 | disposition home or self-care (01) ==
PROVIDERS: PCP Internal Medicine; Visit Provider Hospitalist
DX: C34.92 Malignant neoplasm of unspecified part of left bronchus or lung (principal); R91.1 Solitary pulmonary nodule; J44.89 Other specified chronic obstructive pulmonary disease; J98.4 Other disorders of lung
CPT/HCPCS: 99214; G2211

== ENCOUNTER → 2024-06-23 10:30 | Outpatient (BNVA) | payer MEDICARE, MEDICAID, SELFPAY | PROVIDERS: PCP Internal Medicine; Visit Provider Hospitalist | DX: C34.92 Malignant neoplasm of unspecified part of left bronchus or lung (principal); R91.1 Solitary pulmonary nodule; J44.89 Other specified chronic obstructive pulmonary disease; J98.4 Other disorders of lung | CPT/HCPCS: 99212 ==

== ENCOUNTER 2024-06-26 10:10 | Outpatient (AMB) | payer MEDICARE, MEDICAID, SELFPAY ==
[2024-06-26 10:13] VITALS: BP 120/56; PULSE 89; O2SAT 93; BMI 25.5
--- NOTE | 2024-06-26 10:13 | MHC.PC.OV ---
Vital Signs 06/26/24 10:13 Height 5 ft 6 in Weight 158 lb BMI 25.5 BP 120/56 L Blood Pressure Location Rt brachial Position Sitting Pulse 89 Pulse Source Pulse Oximeter Pulse Oximetry (%) 93 Oxygen Delivery Method Room Air Intake Visit Reasons: Annual Physical Intake Note: Pt is here today for Allergies No Known Allergies Allergy (Verified 06/23/24 10:45) Medication List - Last Reconciled 06/26/24 by Theresa Teague MD albuterol sulfate 5 mg inhalation Q6H allopurinol 100 mg PO DAILY amlodipine 10 mg PO DAILY fluticasone propion-salmeterol 250-50 mcg/dose (Wixela Inhub) 1 inh inhalation Q12H 30 days hydrochlorothiazide 25 mg PO DAILY nebulizers As directed olmesartan 20 mg PO DAILY Oxygen Home Use As directed prednisone PO daily; Take 2 tabs daily x 10 days, then 1 tab daily x 10 days 20 days [transport wheelchair with footrests As directed] Tobacco use date assessed: 06/26/24 Fall risk assessment: No Falls in past year Last assessed Fall Risk: 06/26/24 Dental Screening Dental Screen Date: 06/26/24 Did you have a dental visit in the last 12 months?: No Did you have a dental problem in the last 6 months where you did not have access to dental care?: No Was dental information given to patient?: Patient declined HPI Annual Physical HPI Details Patient presents for physical. 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 Mother No problems noted. Social History Household Members: Spouse Housing: House Housing Other:: , 3 adult children Are you a primary reservoir caretaker to a significant other at home: No Do you presently have visiting nurse or other home services: No Patient Tobacco Use Status: Former Tobacco user Tobacco use type: Cigarette e-Cigarette/Vaping Use: Never Used service: No Current occupational status: retired Sexual orientation: Straight/Heterosexual Gender identity: Male Cognitive needs: No Hearing needs: No Vision needs: Yes Questionnaire PHQ-9 Over the last 2 weeks, how often have you been bothered by any of the following problems? 1. Little interest or pleasure in doing things: not at all 2. Feeling down, depressed, or hopeless: not at all 3. Trouble falling or staying asleep, or sleeping too much: not at all 4. Feeling tired or having little energy: not at all 5. Poor appetite or overeating: not at all 6. Feeling bad about yourself - or that you are a failure or have let yourself or your family down: not at all 7. Trouble concentrating on things, such as reading the newspaper or watching television: not at all 8. Moving or speaking so slowly that other people could have noticed. Or the opposite - being so fidgety or restless that you have been moving around a lot more than usual: not at all 9. Thoughts that you would be better off or of hurting yourself in some way: not at all Total score: 0 Depression Screening Interpretation: Negative Depression Screening Done: Yes 72597 - PHQ-9 Billing: Yes Source: Developed by Drs. Israel Summers, Valarie Russ, Ramirez Christensen and colleagues, with an educational betsy from [employer]. Thrive Questionnaire Date Thrive assessed: 06/26/24 I am a: Patient What is your living situation today?: I have a steady place to live Within the past 12 months, did the food you bought not last and you didn't have the money to get more?: Never true Within the past 12 months, did you worry whether your food would run out before you got money to buy more?: Never true Do you have trouble paying for medicines?: No Do you have trouble getting transportation to medical appointments?: No Do you have trouble paying your heating and electricity bill?: No Do you have trouble taking care of your child, family member or friend?: No Do you have trouble with day-to-day activities such as bathing, preparing meals, shopping, managing finances, etc.?: No Are you currently unemployed and looking for a job?: No Are you interested in more education?: No Please select the resources that you would like help with: None THRIVE Score: 0 AUDIT C Alcohol Use Questionnaire (AUDIT-C) 1. How often do you have a drink containing alcohol?: Never 3. How often do you have six or more drinks on one occasion?: Never Total Score: 0 ZENY-7 AMB Questionnaire ZENY-7 Date ZENY - 7 assessed: 06/26/24 Feeling nervous, anxious, or on edge: 0 = Not at all Not being able to stop or control worryin = Not at all Worrying too much about different things: 0 = Not at all Trouble relaxin = Not at all Being so restless that it is hard to sit still: 0 = Not at all Becoming easily annoyed or irritable: 0 = Not at all Feeling afraid as if something awful might happen: 0 = Not at all Total ZENY-7 score (0-4 normal; 5-9 mild; 10-14 moderate; 15-21 severe): 0 Source: Developed by Drs. Israel Summers, Valarie Russ, Ramirez Christensen and colleagues, with an educational betsy from [employer]. ZENY-7 Assessment Billing ZENY-7 Assessment Tool: ZENY-7 Assessment 10769 Review of Systems Const All systems reviewed & are unremarkable except as noted in HPI and below Eyes Reports no additional complaints Card Reports no additional complaints Resp Reports no additional complaints GI Reports no additional complaints Reports no additional complaints Musc Reports no additional complaints Physical exam (Primary Care) Vital Signs: Last Vital Signs Pulse 89 06/26/24 10:13 BP 106/56 L 06/26/24 10:13 Pulse Ox 93 06/26/24 10:13 Oxygen Delivery Method Room Air 06/26/24 10:13 BMI result Body Mass Index 25.5 Tobacco/Smoking Status: Tobacco use Status Tobacco use date assessed 06/26/24 06/26/24 10:22 Patient Tobacco Use Status Former Tobacco user 06/26/24 10:15 Tobacco use type Cigarette 06/26/24 10:15 e-Cigarette/Vaping Use Never Used 06/26/24 10:15 PHQ-9: PHQ-9 Score PHQ-9: Total score 0 06/26/24 10:52 Depression Screening Interpretation: Negative Thrive Assessment: Date of Thrive Assessment Date Thrive assessed 06/26/24 06/26/24 10:22 Const General: no acute distress HENMT Head: Yes normal to inspection Face and sinus: Yes normal facial exam Mouth: Normal oral and palatal mucosa present Throat: Yes posterior oropharynx normal Eyes General: appearance normal, both eyes and all related structures Neck Neck: Yes supple Resp Effort & Inspection: normal respiratory effort Auscultation: clear to auscultation bilaterally Cardio Rhythm: regular rhythm Heart sounds: S1 normal heart sound present and S2 normal heart sound present GI Inspection: Yes normal to inspection Palpation (GI): Soft to palpation Percussion: Yes normal to percussion Auscultation: normal bowel sounds Assessment and Plan Assessment & Plan (1) COPD (chronic obstructive pulmonary disease): Comment: O2 dependent, f/u pulmonology Code(s): J44.9 - Chronic obstructive pulmonary disease, unspecified Plan: cont current tx (2) HTN (hypertension): Code(s): I10 - Essential (primary) hypertension Plan: cont meds (3) Hyperlipidemia: Code(s): E78.5 - Hyperlipidemia, unspecified Plan: cont low cholesterol diet (4) Squamous cell lung cancer: Onset Date: ~2022 Comment: ([facility] - dx 06/2023), s/p RTx , f/u with Dr. Olivares and pulmonology Code(s): C34.90 - Malignant neoplasm of unspecified part of unspecified bronchus or lung Qualifiers: Laterality: left Qualified Code(s): C34.92 - Malignant neoplasm of unspecified part of left bronchus or lung Plan: f/u with oncology and pulmonary (5) Mild ascending aorta dilatation: Comment: (mild dilatation of the ascending aorta measuring 3.50 cm on 03/2023 Echo), no need for f/u Code(s): I77.810 - Thoracic aortic ectasia Orders: Orders Complete Blood Count Auto Diff Today E78.5 - Hyperlipidemia, unspecified, I10 - Essential (primary) hypertension, J44.89 - Other specified chronic obstructive pulmonary disease, J44.9 - Chronic obstructive pulmonary disease, unspecified Comprehensive Met. Panel Today E78.5 - Hyperlipidemia, unspecified, I10 - Essential (primary) hypertension, J44.89 - Other specified chronic obstructive pulmonary disease, J44.9 - Chronic obstructive pulmonary disease, unspecified Medications: Refilled amlodipine 10 mg PO DAILY 90 tabs 3RF hydrochlorothiazide 25 mg PO DAILY 90 tabs 3RF olmesartan 20 mg PO DAILY 90 tabs 1RF allopurinol 100 mg PO DAILY 90 tabs 3RF olmesartan 20 mg PO DAILY 90 tabs 3RF Discontinued prednisone Discontinued Reason: Doctor's Order PO daily; Take 2 tabs daily x 10 days, then 1 tab daily x 10 days 20 days 30 tabs 0RF Coding Level of Care Code Est Pt Prev Care >65y(02988) Diagnoses COPD (chronic obstructive pulmonary disease) J44.9 HTN (hypertension) I10 Hyperlipidemia E78.5 Squamous cell carcinoma of left lung C34.92 Laterality: left Mild ascending aorta dilatation I77.810 Additional Codes ZENY-7 Assessment Billing - ZENY-7 Assessment Tool: ZENY-7 Assessment 58141 ([id number])
== END 2024-06-26 13:31 | disposition home or self-care (01) ==
PROVIDERS: PCP Internal Medicine; Visit Provider Internal Medicine
DX: Z00.00 Encounter for general adult medical examination without abnormal findings (principal); J44.9 Chronic obstructive pulmonary disease, unspecified; C34.92 Malignant neoplasm of unspecified part of left bronchus or lung; I77.810 Thoracic aortic ectasia; I10 Essential (primary) hypertension; E78.5 Hyperlipidemia, unspecified
CPT/HCPCS: 99397

== ENCOUNTER 2024-06-26 11:01 | Outpatient (REF) | payer MEDICARE, MEDICAID, SELFPAY ==
[2024-06-26 13:10] LABS: MANUAL DIFF FLAG NO
[2024-06-26 13:23] LABS: Basophils Percent Auto 0.6 % (0-2); Eosinophils Absolute Auto 0.1 X10*3/uL (0.0-0.4); Eosinophils Percent Auto 1.8 % (0-4); Hematocrit 34.3 % (42.0-52.0); Hemoglobin 11.1 g/dl (14.0-18.0); Imm Gran Abs Auto 0.09 X10*3/uL (0.00-0.03); Imm Gran Pct Auto 1.3 % (0.0-0.4); Lymphocytes Absolute Auto 1.4 X10*3/uL (1.2-4.9); Lymphocytes Percent Auto 19.4 % (20-40); Mean Corpuscular HGB Conc 32.4 g/dl (31.0-36.0); Mean Corpuscular Hemoglobin 30.2 pg (27.0-33.0); Mean Corpuscular Volume 93.5 fL (80.0-98.0); Mean Platelet Volume 9.1 fL (9.4-12.4); Monocytes Percent Auto 14.2 % (2-11); Neutrophils Absolute Auto 4.5 x10*3/uL (2.0-8.3); Neutrophils Percent Auto 62.7 % (45-73); Platelet Count 256 X10*3/uL (160-400); Red Blood Count 3.67 X10*6/uL (4.60-5.80); Red Cell Distribution Width 17.2 % (11.0-16.0); White Blood Count 7.2 X10*3/uL (4.8-10.8)
[2024-06-26 13:40] LABS: Alanine Aminotransferase 11 U/L (0-40); Albumin Level 3.8 g/dL (3.5-5.0); Alkaline Phosphatase 91 U/L (39-117); Anion Gap 16 (12-20); Aspartate Amino Transferase 14 U/L (5-37); Bilirubin Total 0.3 mg/dL (0.0-1.0); Blood Urea Nitrogen 18 mg/dL (9-16); Calcium 9.6 mg/dL (8.4-10.2); Carbon Dioxide 20 mmol/L (22-29); Chloride 104 mmol/L (96-108); Estimated Glomerular Filt Rate > 60; Glucose Random 119 mg/dL (60-115); Potassium 4.9 mmol/L (3.3-5.1); Sodium 135 mmol/L (135-145); Total Protein 6.9 g/dL (6.5-8.0)
== END 2024-06-26 11:02 | disposition home or self-care (01) ==
LOC: HO.HMGCLDS 11:01
PROVIDERS: PCP Internal Medicine; Visit Provider Internal Medicine
DX: J44.89 Other specified chronic obstructive pulmonary disease (principal); I10 Essential (primary) hypertension; E78.5 Hyperlipidemia, unspecified
CPT/HCPCS: 36415; 80053; 85025

== ENCOUNTER 2024-07-08 12:34 | Outpatient (REF) | payer MEDICARE, MEDICAID, SELFPAY ==
[2024-07-08 13:09] LABS: Blood Urea Nitrogen 19 mg/dL (9-16); Estimated Glomerular Filt Rate > 60
== END 2024-07-08 12:35 | disposition home or self-care (01) ==
LOC: HO.LAB 12:34
PROVIDERS: PCP Internal Medicine; Visit Provider Internal Medicine
DX: C34.90 Malignant neoplasm of unspecified part of unspecified bronchus or lung (principal)
CPT/HCPCS: 36415; 82565; 84520

== ENCOUNTER 2024-07-15 11:23 | Outpatient (REF) | payer MEDICARE, MEDICAID, SELFPAY ==
--- NOTE | ~2024-07-15 | CT_ITS ---
EXAMINATION: CT CHEST WITH CONTRAST CLINICAL INFORMATION: History of squamous cell carcinoma left lung, follow-up examination to evaluate progression of disease and status of previously seen bilateral perihilar and basilar groundglass opacities and dense consolidations. History of left upper lobe nodules, slightly more prominent on previous chest CT concerning for metastases. History of bilateral radiation treatment. History of right upper lobe wedge resection. COMPARISON: [facility]PA 05/15/2024. CT chest with IV contrast 05/13/2024. TECHNIQUE: Multidetector volumetric CT imaging of the chest was obtained after the administration of 65 mL of Omnipaque 350 intravenous contrast without immediate adverse reactions. Axial MIP volume rendering provided. Sagittal and coronal reformatted images were obtained. This CT examination was performed using dose optimization techniques as appropriate, variously including the following: *Automated exposure control *Adjustment of mA and/or kV according to patient size (this includes techniques or standardized protocols for targeted exams where dose is matched to indication/reason for exam; i.e. extremities or head) *Use of iterative reconstruction technique DLP: 105 mGy-cm FINDINGS: -There is mild to moderate respiratory motion degradation, limiting sensitivity for detection of subtle findings. NODULES: -There are numerous pulmonary nodules present, most conspicuous left upper lobe, superior segment left lower lobe, and inferior right lower lobe, as well as the right middle lobe and tiny new nodule in the right lower lobe. -Previously seen nodules in the left upper lobe have enlarged mildly and there are new nodules throughout both lungs. Findings are consistent with metastatic disease. -For example, a posterior left upper lobe nodule currently measures 7 mm in diameter, previously 5 mm (series 5, image 56). -Slightly inferior to this, previously seen 4 mm x 3 nodule currently measures 6 x 5 mm (series 5, image 62). -A mixed groundglass and solid nodule in the posterior left upper lobe (series 5, image 212) is new from the prior examination, not previously definitively seen. -Otherwise, there are new nodules in all lobes of both lungs, and enlarging nodules, largest definitive nodule in the superior segment left lower lobe immediately measuring 1.2 cm in diameter (series 5 image 97). -1.1 cm new dense consolidative and nodular opacity in the anterior right lower lobe (series 5, 158). This is most likely a metastatic deposit. Several similar foci are present medial inferior right middle lobe, basilar segments right lower lobe LUNGS: -Bilateral inferior perihilar dense consolidations have increased in size and conspicuity, and demonstrate air bronchograms, most likely representing confluent radiation pneumonitis. Foci of low density within these consolidations are or suspicious foci, likely metastases. Cannot exclude lymphangitic spread of disease. -Previously seen groundglass opacities in both lungs have improved, suggesting sequela of radiation. Persistent patchy groundglass and interstitial changes in the right base. -Postsurgical scarring in the subpleural lateral right upper lobe from prior wedge resection. -There are a few scattered coarse calcifications within the pulmonary parenchyma, most likely sequela of prior granulomatous disease. -Moderate paraseptal and centrilobular emphysema again demonstrated with large apical bulla immediately left greater than right, as well as bilateral lower lobe subpleural paraseptal blebs. -Bronchiectasis is noted somewhat diffusely, most conspicuous in the lower lobes. There is associated bronchial wall thickening in the proximal left lower lobe segmental bronchi, most likely radiation change. PLEURA: -There are new tiny right greater than left pleural effusions. There is no pneumothorax. MEDIASTINUM: -Thyroid is enlarged with several nodules, unchanged. -Numerous subcentimeter mediastinal lymph nodes are present, several which are calcified, suggesting either treated metastatic disease or prior granulomatous disease. -Slightly enlarging 1.0 cm short axis subcarinal lymph node. -Otherwise, no new danita disease identified. -Within the anterior epicardial fat, there is a new right paramedian irregular soft tissue nodular opacity measuring 1.3 x 0.7 cm, concerning for metastatic deposit (series 3, image 35). -Heavy atheromatous calcification of the aorta. No aneurysm or acute aortic syndrome. -Main pulmonary arteries are prominent. -There are aortic valvular calcifications. -Esophagus is patulous, there is a type I hiatus hernia. There is mild esophageal wall thickening rather diffusely, likely secondary to radiation treatment, this is a stable finding. -There is mild cardiac enlargement. There is no pericardial effusion or thickening. -There are moderate to heavy coronary calcifications. AXILLA/CHEST WALL: -There is no mass or lymphadenopathy present. UPPER ABDOMEN: -There are slightly more prominent into tiny hypoattenuating foci throughout the liver suspicious for hepatic metastases. Remainder of abdomen included in the imaging is similar and unremarkable to the previous study. OSSEOUS STRUCTURES: -There are subtle sclerotic foci within numerous thoracic vertebral bodies, consistent with osseous metastatic disease -There are fairly characteristic changes of moderate DISH within the spine. CT/CT chest w IV con IMPRESSION: 1. Numerous mildly enlarging and new bilateral pulmonary nodules consistent with PROGRESSIVE METASTATIC DISEASE. 2. More confluent dense consolidative foci in the inferior perihilar regions, with internal air bronchograms and foci of low-attenuation suggesting a mix of metastasis and consolidation. Findings are complex and likely represent a mixed picture of radiation and pneumonitis and metastatic disease. Lymphangitic spread is a consideration. 3. Extremely subtle sclerotic foci consistent with osseous metastatic disease within numerous vertebral bodies of thoracic spine. 4. Stable emphysematous changes and postsurgical changes within the lungs. 5. Improving groundglass changes in the lower lobes and perihilar regions bilaterally suggesting evolving radiation pneumonitis. 6. Suspect worsening subtle foci of metastasis to the liver. 7. Numerous additional findings/ancillary findings as detailed in the body of the report. Fleischner guidelines were followed. Findings were discussed with Dr. Olivares via phone call on at 2:30 PM on 08/20/2024. Electronically signed by: Mark Esteban MD 08/20/2024 03:36 PM EDT
[2024-07-15] MEDS: iohexoL 350 MG/ML 100 ML INFUS..BTL 65 ML IV (12:15)
== END 2024-07-15 11:24 | disposition home or self-care (01) ==
LOC: HO.CT 11:23
PROVIDERS: PCP Internal Medicine; Visit Provider Internal Medicine
DX: C34.90 Malignant neoplasm of unspecified part of unspecified bronchus or lung (principal)
CPT/HCPCS: 71260; Q9967

== ENCOUNTER → 2024-07-15 11:25 | Outpatient (BNV) | payer MEDICARE, MEDICAID, SELFPAY | PROVIDERS: PCP Internal Medicine; Visit Provider Radiology Diagnostic Radiology | DX: C34.90 Malignant neoplasm of unspecified part of unspecified bronchus or lung (principal) | CPT/HCPCS: 71260 ==

== ENCOUNTER 2024-09-10 12:46 | Outpatient (REF) | payer MEDICARE, SELFPAY ==
--- NOTE | ~2024-09-10 | XR_ITS ---
EXAMINATION: XR CHEST CLINICAL INFORMATION: Difficulty breathing COMPARISON: 07/15/2024 TECHNIQUE: 2 views of the chest were obtained. FINDINGS: Hyperaeration noted with extensive areas of scarring in the right and left midlung. Findings are similar to the prior plain radiograph of 04/14/2024. Upper lungs clear. Heart size normal with normal caliber pulmonary vessels. There is degenerative spondylitic change in the spine with mild midthoracic compression unchanged. XR/XR chest 2V IMPRESSION: Extensive emphysematous change and chronic change noted with no active disease. Electronically signed by: Mo Walton MD 09/10/2024 04:02 PM [facility]
== END 2024-09-10 12:47 | disposition home or self-care (01) ==
LOC: HO.XRAY 12:46
PROVIDERS: PCP Internal Medicine; Visit Provider Hospitalist
DX: J98.4 Other disorders of lung (principal); C34.92 Malignant neoplasm of unspecified part of left bronchus or lung
CPT/HCPCS: 71046

== ENCOUNTER 2024-09-12 10:42 | Outpatient (AMB) | payer MEDICARE, MEDICAID, SELFPAY ==
--- NOTE | 2024-09-12 10:58 | A.OFFVIS_ITS ---
Vital Signs 09/12/24 10:59 Height 5 ft 6 in Weight 153 lb 3.54 oz BMI 24.7 BP 130/64 Blood Pressure Location Rt brachial Position Sitting Pulse 77 Pulse Source Pulse Oximeter Pulse Oximetry (%) 94 Oxygen Delivery Method Room Air Intake Visit Reasons: Lung cancer Fitting Supervisor Required: No Emissions Repair Technician: Emissions Repair Technician offered & declined Accompanied by: Self / Same As Patient Allergies No Known Allergies Allergy (Verified 09/12/24 11:03) Medication List - Last Reconciled 09/12/24 by Radhika Hair LPN albuterol sulfate 2.5 mg (0.5 mL) inhalation Q6H allopurinol 100 mg PO DAILY amlodipine 10 mg PO DAILY fluticasone propion-salmeterol 250-50 mcg/dose (Wixela Inhjeanette) 1 inh inhalation Q12H 30 days hydrochlorothiazide 25 mg PO DAILY nebulizers As directed olmesartan 20 mg PO DAILY Oxygen Home Use As directed [transport wheelchair with footrests As directed] HPI Comments Details: He is an 84-year-old gentleman non Jordanian-speaking his daughter is translating and she is very fluent. Apparently patient has been developing worsening cough and shortness of breath. Denies any significant night sweats or hemoptysis. Denies any significant weight loss. Ultimately the patient did have a chest x- ray that was abnormal and then followed up with a CT scan of the chest demonstrating significant airspace disease in appears to have an endobronchial obstruction. I am suspicious for a postobstructive pneumonia. Explained to this concerning findings with the patient and his daughter. I did explain that he would need further diagnostic interventions. However, the patient states that he would like to hold off on any invasive or semi invasive diagnostic procedures. I did give him few different options as far as bronchoscopy versus CT-guided biopsy but the patient opted on conservative measures. Therefore, I did give him a prescription for antibiotics and also will prescribe a Acapella valve for chest PT to see if he can clear some mucus out of the airways and see if there can be some improvement. Will plan to repeat the CT scan 6 weeks to see if there is any significant improvement. In the meantime the family will talk with the patient to see if he would want to consider further diagnostic interventions in the near future if still needed. If he decides not to undergo any diagnostic interventions and understands the gravity of the situation then will have to consider talking further about goals of care. also, during the visit we did go for brief walking oximetry in the patient did desaturate to 88% with activity. The patient did qualify for oxygen supplementation with activity. 06/25/2023 the patient is here for a pulmonary follow-up visit. The patient completed the antibiotics. He is also using the flutter valve for chest PT. He is able to get some sputum out. She also using the oxygen with good effect. The oxygen therapy has been affecting beneficial. In the meantime he is scheduled for the CT scan but is not too next week. He still has some crackles on examination specially on the left side is very diminished. I talked to the family and I suspect that the left-sided density probably is not any better. We did talk about if the CT scan continues to be abnormal will perform a bronchoscopy. Explained the procedure to the patient and also to his daughter. The patient understands and is willing to proceed with the procedure. We did go for brief walking oximetry the patient still desaturates down to 88% on room air. after he gets his CT scan we will talk on the phone regarding the next best step. My suspicion is that he will need a bronchoscopy at this time. 08/15/2023 the patient is here for a pulmonary follow-up visit. The patient continues to complain of cough and also shortness of breath with activity. [id number] severity. Denies any fevers or chills. Denies any chest pains. 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 He did have endobronchial lesion blocking the lingula near completely. Therefore, explain the postobstructive pneumonia. The patient did undergo a PET scan. We did review it with the patient and also his daughter. He has a significantly PET avid lingular nodular density in addition to that there is a right-sided nodular density that appears to be also concerning for malignancy. No mediastinal involvement. This likely to primary lung cancer separate. The patient is aware of the findings and the results. Will refer him to Oncology at this time. I did recommend he undergo pulmonary function studies and see if he is a candidate for potential stereotactic radiation to both lesions. Unfortunately his PDL1 activity was not detected. 11/19/2023 the patient is here for a pulmonary follow-up visit. The patient overall is doing okay. Still having some dyspnea on exertion. Mild in severity. The patient did complete his radiation therapy at [facility]. He tolerated it well. He is currently on cough syrup to try to minimize the cough. He also had pulmonary function studies which we personally reviewed. There appears to be a significant reversible obstruction. Therefore will go ahead and start him on Wixela to try to help him with his reversibility and also to help him with the inflammation that can be induced from the radiation. He is going to use it once a day he is going to rinse his mouth well and then increase it to twice a day if necessary. The patient was also offered a rescue inhaler but does not think he needs it at this time. He will call if any issues. Therefore follow-up in 4 months. He will have additional imaging study I believe at [facility]. 03/17/2024 the patient is here for pulmonary follow-up visit. He completed the radiation. Since the radiation felt some increased shortness of breath in addition to lower extremity weakness. He did follow-up with Oncology unfortunately he has not candidate for targeted therapy. The patient also is frail in would be very difficult for him to tolerate full chemotherapy. He had blood work done with another potassium. He has been trying to make dietary discretion. She will have another lab check and week or so. In the meantime he continues with respiratory therapy. He also has his oxygen. I did recommend using more often specially when he is moving. The patient also will trial a short course of prednisone to see if there is any radiation pneumonitis. Right now does not have any wheezing on examination. I did talk to the family to look into goals of care and they will discuss that amongst the family. 04/14/2024 the patient is here for a pulmonary sick visit. He has been having worsening shortness of breath symptoms. Also felt cold and chills. Therefore we did swab for RSV COVID and influenza. Was all negative. The patient has been complaining of hypoxia. He does have oxygen at home. He has a hard time caring the oxygen least the bigger portable tanks. Therefore, I did place him on a be cylinder 1 L flow and the patient seemed to maintain a pulse ox above 90%. Therefore hopefully with continuous flow he will get relief of the low flow rate so he can have longer duration with smaller tank. The patient also completed the radiation therapy. 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 Will go ahead and give him another course and go ahead and start him on doxycycline cases developing a postobstructive process. Will go ahead and request a chest x-ray. There is any suggestion of bronchopneumonia will start him on a 2nd antibiotic regimen. But at this point I do believe this likely related to the radiation pneumonitis. The patient will undergo a CT scan in a few weeks from now. If he has any worsening symptoms will call for an earlier assessment. However, if his symptoms are no better with the medication he will call the office for an earlier CT scan. the patient still does not have a code status at least on record. Will have to address that during the next visit. 06/23/2024 the patient is here for a pulmonary follow-up visit. Overall the patient has appears to be doing a little better. He is tolerating the oxygen well. He is also a eating more with good appetite. He continues his respiratory therapy as prescribed. The patient already completed the antibiotics and the prednisone. We did again review the CT scan from April demonstrating some new nodular densities increasing size concerning for the possibility of progression of the cancer in addition to that significant interstitial lung disease which could be secondary to pneumonitis from radiation. Although infection is also in differential. We did go ahead and treat him with antibiotics already clinically the patient is doing better as well. Will plan to him come back and have a repeat chest x-ray make sure that there is interval improvement of the parenchymal issues. Hopefully the patient continues to do well Then we can repeat the CT scan closer to August. if the patient however has any worsening symptoms we consider re- evaluating her earlier time. The the family is present and they are aware that the new nodular densities may indeed be progression of disease. I did provide him with incentive spirometer we did go with the instructions on how to use it. In addition to that online pulmonary rehabilitation since the patient is not able to attend in person rehab. 09/12/2024 the patient is here for a pulmonary follow-up visit. Overall he is feeling well. Denies any significant chest pain or cough. He does have dyspnea on exertion. Does use the oxygen with good effect. Did have a chest x-ray today which I personally reviewed. Appears to have the post radiation changes with some radiation fibrosis. On the x-ray at least there is no evidence of any progression of his lung cancer. Will plan to follow-up in [address] scan of the chest. If he has any issues prior to that he will call for further evaluation. [facility] Medical History (Updated 09/14/24 @ 19:10 by Maxwell Garrido MD) Pneumonitis Asthma-COPD overlap syndrome Squamous cell lung cancer (~2022) Supplemental oxygen dependent HTN (hypertension) Hyperlipidemia Mild ascending aorta dilatation Situational anxiety Gout Surgical History History of colonoscopy History of shoulder surgery History of bronchoscopy Family History Father No problems noted. Mother No problems noted. Social History (Updated 09/12/24 @ 11:03 by Radhika Hair LPN) Household Members: Spouse Housing: House Housing Other:: , 3 adult children Are you a primary clinical care manager to a significant other at home: No Do you presently have visiting nurse or other home services: No Patient Tobacco Use Status: Former Tobacco user Tobacco use type: Cigarette e-Cigarette/Vaping Use: Never Used service: No Current occupational status: retired Sexual orientation: Straight/Heterosexual Gender identity: Male Cognitive needs: No Hearing needs: No Vision needs: Yes Review of Systems Const All systems reviewed & are unremarkable except as noted in HPI and below Reports no additional complaints, Reports body aches, Reports chills, Reports fatigue and Reports weakness Eyes Reports no additional complaints ENT Reports no additional complaints Card Reports no additional complaints and Reports dyspnea on exertion Resp Reports cough and Reports dyspnea on exertion GI Reports no additional complaints Reports no additional complaints Neuro Reports weakness Endo Reports fatigue Physical Exam Vital Signs: Last Vital Signs Pulse 77 09/12/24 10:59 BP 130/64 09/12/24 10:59 Pulse Ox 94 09/12/24 10:59 Oxygen Delivery Method Room Air 09/12/24 10:59 BMI result Body Mass Index 24.7 Const General: comfortable HEENT Head: Yes normocephalic Neck Neck: Yes supple Chest Chest palpation & inspection: normal inspection of the chest Resp Effort & Inspection: normal respiratory effort Auscultation: no rales and diminished lung sounds Cardio Heart sounds: S1 normal heart sound present and S2 normal heart sound present GI Palpation (GI): Soft to palpation Skin General skin exam: no rashes or lesions noted Extrem General: Yes no clubbing, cyanosis or edema Assessment & Plan Assessment & Plan (1) Squamous cell lung cancer: Onset Date: ~2022 Comment: ([facility] - dx 06/2023), s/p RTx , f/u with Dr. Olivares and pulmonology Code(s): C34.90 - Malignant neoplasm of unspecified part of unspecified bronchus or lung Category: Medical Qualifiers: Laterality: left Qualified Code(s): C34.92 - Malignant neoplasm of unspecified part of left bronchus or lung (2) Pulmonary nodule: Comment: (1cm RML nodule PET avid- suv max 6.3 - likely second primary) Code(s): R91.1 - Solitary pulmonary nodule Category: Medical (3) Asthma-COPD overlap syndrome: Code(s): J44.89 - Other specified chronic obstructive pulmonary disease Category: Medical (4) Pneumonitis: Comment: better Code(s): J98.4 - Other disorders of lung Category: Medical Plan continue Wixela consider ANTHONY as needed s/P SBRT to left sided CA lesion CT chest 6 months Goals of care oxygen revision: B cylinders 1l/min with activity and 2L with sleep F/U 4-6 months Orders: Orders CT chest wo IV con 6 Months C34.92 - Malignant neoplasm of unspecified part of left bronchus or lung Coding Level of Care Code Est Pt Level 4 (71018) Complex EM visit Add On G2211 Diagnoses Squamous cell carcinoma of left lung C34.92 Laterality: left Pulmonary nodule R91.1 Asthma-COPD overlap syndrome J44.89 Pneumonitis J98.4 Time Spent (min) 16
[2024-09-12 10:59] VITALS: BP 130/64; PULSE 77; O2SAT 94; BMI 24.7
== END 2024-09-12 11:23 | disposition home or self-care (01) ==
PROVIDERS: PCP Internal Medicine; Visit Provider Hospitalist
DX: C34.92 Malignant neoplasm of unspecified part of left bronchus or lung (principal); R91.1 Solitary pulmonary nodule; J44.89 Other specified chronic obstructive pulmonary disease; J98.4 Other disorders of lung
CPT/HCPCS: 99214; G2211

== ENCOUNTER → 2024-09-12 10:42 | Outpatient (BNVA) | payer MEDICARE, MEDICAID, SELFPAY | PROVIDERS: PCP Internal Medicine; Visit Provider Hospitalist | DX: C34.92 Malignant neoplasm of unspecified part of left bronchus or lung (principal); J44.89 Other specified chronic obstructive pulmonary disease; R91.1 Solitary pulmonary nodule; J98.4 Other disorders of lung | CPT/HCPCS: 99212 ==

== ENCOUNTER 2024-10-30 12:28 | Outpatient (REF) | payer MEDICARE, MEDICAID, SELFPAY ==
[2024-10-30 15:56] LABS: MANUAL DIFF FLAG NO
[2024-10-30 16:10] LABS: Basophils Percent Auto 0.5 % (0-2); Eosinophils Absolute Auto 0.4 X10*3/uL (0.0-0.4); Eosinophils Percent Auto 7.1 % (0-4); Hematocrit 47.9 % (42.0-52.0); Hemoglobin 15.6 g/dl (14.0-18.0); Imm Gran Abs Auto 0.02 X10*3/uL (0.00-0.03); Imm Gran Pct Auto 0.3 % (0.0-0.4); Lymphocytes Absolute Auto 1.2 X10*3/uL (1.2-4.9); Lymphocytes Percent Auto 18.6 % (20-40); Mean Corpuscular HGB Conc 32.6 g/dl (31.0-36.0); Mean Corpuscular Hemoglobin 29.3 pg (27.0-33.0); Mean Platelet Volume 9.9 fL (9.4-12.4); Monocytes Absolute Auto 0.6 X10*3/uL (0.1-1.2); Monocytes Percent Auto 10.1 % (2-11); Neutrophils Percent Auto 63.4 % (45-73); Platelet Count 223 X10*3/uL (160-400); Red Blood Count 5.32 X10*6/uL (4.60-5.80); White Blood Count 6.2 X10*3/uL (4.8-10.8)
[2024-10-30 16:30] LABS: Alanine Aminotransferase 10 U/L (0-40); Albumin Level 4.1 g/dL (3.5-5.0); Alkaline Phosphatase 80 U/L (39-117); Anion Gap 13 (12-20); Aspartate Amino Transferase 21 U/L (5-37); Bilirubin Total 0.4 mg/dL (0.0-1.0); Blood Urea Nitrogen 18 mg/dL (9-16); Calcium 9.2 mg/dL (8.4-10.2); Carbon Dioxide 25 mmol/L (22-29); Chloride 107 mmol/L (96-108); Estimated Glomerular Filt Rate > 60; Glucose Random 92 mg/dL (60-115); Potassium 4.6 mmol/L (3.3-5.1); Sodium 140 mmol/L (135-145); Total Protein 7.4 g/dL (6.5-8.0)
[2024-10-30 16:53] LABS: Uric Acid 6.4 mg/dL (3.4-7.0)
== END 2024-10-30 12:29 | disposition home or self-care (01) ==
LOC: HO.HMGCLDS 12:28
PROVIDERS: PCP Internal Medicine; Visit Provider Internal Medicine
DX: C34.92 Malignant neoplasm of unspecified part of left bronchus or lung (principal); M10.9 Gout, unspecified; J44.9 Chronic obstructive pulmonary disease, unspecified; I10 Essential (primary) hypertension
CPT/HCPCS: 36415; 80053; 84550; 85025; 96127; 99212

== ENCOUNTER 2024-10-30 12:28 | Outpatient (AMB) | payer MEDICARE, MEDICAID, SELFPAY ==
--- NOTE | 2024-10-30 12:31 | A.OFFPC_ITS ---
Vital Signs 10/30/24 12:32 Height 5 ft 6 in Weight 150 lb BMI 24.2 BP 126/78 Blood Pressure Location Lt brachial Position Sitting Pulse 74 Pulse Source Pulse Oximeter Pulse Oximetry (%) 92 Oxygen Delivery Method Room Air Intake Visit Reasons: 4 months follow up Intake Note: Pt is here today for a 4 months follow up visit. Allergies No Known Allergies Allergy (Verified 10/30/24 12:37) Medication List - Last Reconciled 10/30/24 by Theresa Teague MD albuterol sulfate 2.5 mg (0.5 mL) inhalation Q6H allopurinol 100 mg PO DAILY fluticasone propion-salmeterol 250-50 mcg/dose (Wixela Inhub) 1 inh inhalation Q12H 30 days nebulizers As directed olmesartan 20 mg PO DAILY Oxygen Home Use As directed [transport wheelchair with footrests As directed] Tobacco use date assessed: 10/30/24 Fall risk assessment: No Falls in past year Last assessed Fall Risk: 10/30/24 Dental Screening Dental Screen Date: 10/30/24 Did you have a dental visit in the last 12 months?: No Did you have a dental problem in the last 6 months where you did not have access to dental care?: No Was dental information given to patient?: Patient declined HPI 4 months follow up HPI Details Patient presents for the follow-up on hypertension COPD and metastatic squamous cell lung cancer. Patient completed radiation therapy and was not a candidate for systemic chemotherapy. He follows up with pulmonology and Oncology. He has not been using Wixela regularly and using supplemental O2 only as needed for shortness or breath. Patient has been physically active and denies cough shortness of breath change in appetite or significant weight loss. 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 Mother No problems noted. Social History (Updated 09/12/24 @ 11:03 by Radhika Hair LPN) Household Members: Spouse Housing: House Housing Other:: , 3 adult children Are you a primary career development coordinator/teacher to a significant other at home: No Do you presently have visiting nurse or other home services: No Patient Tobacco Use Status: Former Tobacco user Tobacco use type: Cigarette e-Cigarette/Vaping Use: Never Used service: No Current occupational status: retired Sexual orientation: Straight/Heterosexual Gender identity: Male Cognitive needs: No Hearing needs: No Vision needs: Yes Questionnaire PHQ-9 Over the last 2 weeks, how often have you been bothered by any of the following problems? 1. Little interest or pleasure in doing things: not at all 2. Feeling down, depressed, or hopeless: not at all 3. Trouble falling or staying asleep, or sleeping too much: not at all 4. Feeling tired or having little energy: not at all 5. Poor appetite or overeating: not at all 6. Feeling bad about yourself - or that you are a failure or have let yourself or your family down: not at all 7. Trouble concentrating on things, such as reading the newspaper or watching television: not at all 8. Moving or speaking so slowly that other people could have noticed. Or the opposite - being so fidgety or restless that you have been moving around a lot more than usual: not at all 9. Thoughts that you would be better off or of hurting yourself in some way: not at all Total score: 0 Depression Screening Interpretation: Negative Depression Screening Done: Yes 46079 - PHQ-9 Billing: Yes Source: Developed by Drs. Israel Summers, Valarie Russ, Ramirez Christensen and colleagues, with an educational betsy from [employer]. Thrive Questionnaire Date Thrive assessed: 10/30/24 I am a: Patient What is your living situation today?: I have a steady place to live Within the past 12 months, did the food you bought not last and you didn't have the money to get more?: Never true Within the past 12 months, did you worry whether your food would run out before you got money to buy more?: Never true Do you have trouble paying for medicines?: No Do you have trouble getting transportation to medical appointments?: No Do you have trouble paying your heating and electricity bill?: No Do you have trouble taking care of your child, family member or friend?: No Do you have trouble with day-to-day activities such as bathing, preparing meals, shopping, managing finances, etc.?: No Are you currently unemployed and looking for a job?: No Are you interested in more education?: No Please select the resources that you would like help with: None THRIVE Score: 0 AUDIT C Alcohol Use Questionnaire (AUDIT-C) 1. How often do you have a drink containing alcohol?: Never 3. How often do you have six or more drinks on one occasion?: Never Total Score: 0 ZENY-7 AMB Questionnaire ZENY-7 Date ZENY - 7 assessed: 10/30/24 Feeling nervous, anxious, or on edge: 0 = Not at all Not being able to stop or control worryin = Not at all Worrying too much about different things: 0 = Not at all Trouble relaxin = Not at all Being so restless that it is hard to sit still: 0 = Not at all Becoming easily annoyed or irritable: 0 = Not at all Feeling afraid as if something awful might happen: 0 = Not at all Total ZENY-7 score (0-4 normal; 5-9 mild; 10-14 moderate; 15-21 severe): 0 Source: Developed by Drs. Israel Summers, Valarie Russ, Ramirez Christensen and colleagues, with an educational betsy from [employer]. ZENY-7 Assessment Billing ZENY-7 Assessment Tool: ZENY-7 Assessment 35610 Review of Systems Const All systems reviewed & are unremarkable except as noted in HPI and below Eyes Reports no additional complaints ENT Reports no additional complaints Card Reports no additional complaints Resp Reports no additional complaints GI Reports no additional complaints Reports no additional complaints Physical exam (Primary Care) Vital Signs: Last Vital Signs Pulse 74 10/30/24 12:32 BP 126/78 10/30/24 12:32 Pulse Ox 92 10/30/24 12:32 Oxygen Delivery Method Room Air 10/30/24 12:32 BMI result Body Mass Index 24.2 Tobacco/Smoking Status: Tobacco use Status Tobacco use date assessed 10/30/24 10/30/24 12:42 Patient Tobacco Use Status Former Tobacco user 10/30/24 12:42 Tobacco use type Cigarette 10/30/24 12:42 e-Cigarette/Vaping Use Never Used 10/30/24 12:42 PHQ-9: PHQ-9 Score PHQ-9: Total score 0 10/30/24 12:42 Depression Screening Interpretation: Negative Thrive Assessment: Date of Thrive Assessment Date Thrive assessed 10/30/24 10/30/24 12:42 Const General: no acute distress HENMT Head: Yes normal to inspection Eyes General: appearance normal, both eyes and all related structures Neck Neck: Yes supple Resp Effort & Inspection: normal respiratory effort Auscultation: crackles and diminished lung sounds Cardio Rhythm: regular rhythm Heart sounds: S1 normal heart sound present and S2 normal heart sound present Coding Level of Care Code Est Pt Level 4 (57593) Diagnoses Squamous cell carcinoma of left lung C34.92 Laterality: left Gout M10.9 COPD (chronic obstructive pulmonary disease) J44.9 HTN (hypertension) I10 Additional Codes ZENY-7 Assessment Billing - ZENY-7 Assessment Tool: ZENY-7 Assessment 79650 ([id number]) PHQ-9 - 22726 - PHQ-9 Billing: Yes ([id number]) Assessment & Plan Assessment & Plan (1) Squamous cell lung cancer: Onset Date: ~2022 Comment: ([facility] - dx 06/2023), s/p RTx , f/u with Dr. Olivares and pulmonology Code(s): C34.90 - Malignant neoplasm of unspecified part of unspecified bronchus or lung Category: Medical Qualifiers: Laterality: left Qualified Code(s): C34.92 - Malignant neoplasm of unspecified part of left bronchus or lung Plan: Patient will have a repeat CT of the chest in 6 months and follows up with pulmonology and Oncology (2) Gout: Code(s): M10.9 - Gout, unspecified Category: Medical Plan: Continue allopurinol (3) COPD (chronic obstructive pulmonary disease): Comment: O2 dependent, f/u pulmonology Code(s): J44.9 - Chronic obstructive pulmonary disease, unspecified Category: Medical Plan: Patient was advised to restart Wixela and use supplemental O2 as needed (4) HTN (hypertension): Code(s): I10 - Essential (primary) hypertension Category: Medical Plan: Continue olmesartan, check comprehensive panel today, follow-up in 6 months Orders: Orders Complete Blood Count Auto Diff Today C34.92 - Malignant neoplasm of unspecified part of left bronchus or lung, J44.9 - Chronic obstructive pulmonary disease, unspecified, M10.9 - Gout, unspecified Comprehensive Met. Panel Today C34.92 - Malignant neoplasm of unspecified part of left bronchus or lung, J44.9 - Chronic obstructive pulmonary disease, unspecified, M10.9 - Gout, unspecified Uric Acid Today C34.92 - Malignant neoplasm of unspecified part of left bronchus or lung, J44.9 - Chronic obstructive pulmonary disease, unspecified, M10.9 - Gout, unspecified
[2024-10-30 12:32] VITALS: BP 126/78; PULSE 74; O2SAT 92; BMI 24.2
== END 2024-10-30 13:23 | disposition home or self-care (01) ==
PROVIDERS: PCP Internal Medicine; Visit Provider Internal Medicine
DX: C34.92 Malignant neoplasm of unspecified part of left bronchus or lung (principal); M10.9 Gout, unspecified; J44.9 Chronic obstructive pulmonary disease, unspecified; I10 Essential (primary) hypertension

== ENCOUNTER 2025-01-06 16:28 | Outpatient (REF) | payer MEDICAID, SELFPAY ==
--- NOTE | ~2025-01-06 | CT_ITS ---
CLINICAL HISTORY: C34.92 - Malignant neoplasm of unspecified part of left bronchus or lung CT chest without contrast Comparison: CT/WA/SR - CT CHEST W IV CON - 07/15/24 11:39 EDT Findings: The heart is normal size. Atherosclerosis calcification of the coronary arteries. The visualized thyroid and mediastinum are unremarkable. There is emphysema. Stable appearance of the masslike lesion in the left parahilar region. Decrease in size of the masslike lesion in the right middle lobe. Stable pulmonary nodules of the right lung, i.e., 4.3 mm in the right middle lobe image 95. Interval increase in size of nodules in the left upper lobe: 7.3 x 9 mm pleural-based series 4, image 47, previously 6.4 x 6.7 mm; 6.6 x 6.8 mm image 51, previously 4.9 x 5.6 mm; new nodule on image 63 6.7 x 9.6 mm; 5 mm nodule on image 63. There are small nodules of the left upper lobe on image 49. Limited evaluation of the multiple hypodense lesions of the liver. Subtle sclerotic lesions of the thoracic spine. IMPRESSION: Stable appearance of the masslike lesion in the left parahilar region likely to be postsurgical changes. Residual tumor can not be excluded. Decrease in size of the masslike lesion of the right middle lobe. Interval increase in size of multiple pulmonary nodules of the left upper lobe with new nodules visualized concerning for progression of metastatic disease. This document has been electronically signed by: Raj Kohler MD on 01/07/2025 14:03:17
--- OUTSIDE RECORDS SUMMARY | 2025-01-06 19:25 | XMS_ITS | Clinical Summary ---
Author Organization [facility] it Address [id number] [place] [id number] Care Team Providers Care Civil Service Clerk Name Role Phone Unavailable Primary Care Provider Unavailabl e Surgical History Surgery Date Site/Laterality Comments APPENDECTOMY PROCEDURE: HISTORICAL APPENDECTOMY; COMMENT: shoulder surgery also Medical History Medical History Date Comments Peptic ulcer, unspecified si te, unspecified as acute or chronic, without mention of hemorrhage or perforation, with obstruction 10/01/2006 DX:Peptic ulcer, unspeci fied site, unspecified as acute or chronic, without mention of hemorrhage or perforation, with obstruction Gout, unspecified 10/02/2006 DX:Gout, unspe cified COPD (chronic obstructive pu lmonary disease) ([facility]) 05/15/2013 DX:COPD (chronic obstructive pulmonary disease) ([facility]) Family History Medical History Relation Name Comments Other: asthma Father Other: at 40 Mother details no t known Relation Name Status Comments Father Mother Social History Tobacco Use Types Packs/Day Years Used Date Smoking Tobacco: Former Cigarettes Q uit: 10/29/2002 Smokeless Tobacco: Former Alcohol Use Standard Drinks/Week Comments No 0 (1 standard drink = 0.6 oz pur e alcohol) Sex and Gender Information Value Date Recorded Sex Assigned at Not on file Legal Sex Male 11:34 AM EST Gender Identity Not on file Sexual Orientation Not on file Obstetrics History Plan of Treatment Health Maintenance Due Date Last Done Comments Zoster Vaccines (1 of 2) 1989 Pneumococcal Vaccine: 50+ Years (2 of 2 - PCV) 08/08/2006 08/08/2005 RSV Immunization Patients 60 + Years Old (1 - 1-dose 75+ series) 2014 COVID-19 Vaccine (2 - 2023-2 5 season) 2024 04/11/2021 Influenza Vaccine (#1) 2024 08/08/2005 DTaP,Tdap,and Td Vaccines (4 - Td or Tdap) 04/11/2031 04/11/2021, 04/14/2014, 07/01/2008 HIB Vaccines Aged Out No longer eligi ble based on patient's age to complete this topic HPV Vaccines Aged Out No longer eligi ble based on patient's age to complete this topic Hepatitis A Vaccines Aged Out No long er eligible based on patient's age to complete this topic Hepatitis B Vaccines Aged Out No long er eligible based on patient's age to complete this topic IPV Vaccines Aged Out No longer eligi ble based on patient's age to complete this topic MMR Vaccines Aged Out No longer eligi ble based on patient's age to complete this topic Meningococcal ACWY Vaccine Aged Out N o longer eligible based on patient's age to complete this topic Meningococcal B Vacine Aged Out No lo nger eligible based on patient's age to complete this topic RSV Immunization Patients Under 20 months Aged Out No longer eligible b ased on patient's age to complete this topic Varicella Vaccines Aged Out No longer eligible based on patient's age to complete this topic
== END 2025-01-06 16:29 | disposition home or self-care (01) ==
LOC: HO.CT 16:28
PROVIDERS: PCP Internal Medicine; Visit Provider Hospitalist
DX: C34.92 Malignant neoplasm of unspecified part of left bronchus or lung (principal)
CPT/HCPCS: 71250

== ENCOUNTER → 2025-01-06 16:30 | Outpatient (BNV) | payer MEDICAID, SELFPAY | PROVIDERS: PCP Internal Medicine; Visit Provider Nuclear Medicine | DX: C34.92 Malignant neoplasm of unspecified part of left bronchus or lung (principal) | CPT/HCPCS: 71250 ==

== ENCOUNTER 2025-03-09 10:29 | Outpatient (AMB) | payer MEDICARE, MEDICAID, SELFPAY ==
[2025-03-09 10:32] VITALS: BP 146/60; PULSE 72; O2SAT 93; BMI 23.8
--- NOTE | 2025-03-09 10:32 | A.OFFVIS_ITS ---
Vital Signs 03/09/25 10:32 Height 5 ft 6 in Weight 147 lb 11.355 oz BMI 23.8 BP 146/60 H Blood Pressure Location Lt brachial Position Sitting Pulse 72 Pulse Source Pulse Oximeter Pulse Oximetry (%) 93 Oxygen Delivery Method Room Air Intake Visit Reasons: Lung cancer/o2 Recert Allergies No Known Allergies Allergy (Verified 03/09/25 10:35) HPI Comments Details: He is an 85-year-old gentleman non Ukrainian-speaking his daughter is translating and she is very fluent. Apparently patient has been developing worsening cough and shortness of breath. Denies any significant night sweats or hemoptysis. Denies any significant weight loss. Ultimately the patient did have a chest x- ray that was abnormal and then followed up with a CT scan of the chest demonstrating significant airspace disease in appears to have an endobronchial obstruction. I am suspicious for a postobstructive pneumonia. Explained to this concerning findings with the patient and his daughter. I did explain that he would need further diagnostic interventions. However, the patient states that he would like to hold off on any invasive or semi invasive diagnostic procedures. I did give him few different options as far as bronchoscopy versus CT-guided biopsy but the patient opted on conservative measures. Therefore, I did give him a prescription for antibiotics and also will prescribe a Acapella valve for chest PT to see if he can clear some mucus out of the airways and see if there can be some improvement. Will plan to repeat the CT scan 6 weeks to see if there is any significant improvement. In the meantime the family will talk with the patient to see if he would want to consider further diagnostic interventions in the near future if still needed. If he decides not to undergo any diagnostic interventions and understands the gravity of the situation then will have to consider talking further about goals of care. also, during the visit we did go for brief walking oximetry in the patient did desaturate to 88% with activity. The patient did qualify for oxygen supplementation with activity. 06/25/2023 the patient is here for a pulmonary follow-up visit. The patient completed the antibiotics. He is also using the flutter valve for chest PT. He is able to get some sputum out. She also using the oxygen with good effect. The oxygen therapy has been affecting beneficial. In the meantime he is scheduled for the CT scan but is not too next week. He still has some crackles on examination specially on the left side is very diminished. I talked to the family and I suspect that the left-sided density probably is not any better. We did talk about if the CT scan continues to be abnormal will perform a bronchosco py. Explained the procedure to the patient and also to his daughter. The patient understands and is willing to proceed with the procedure. We did go for brief walking oximetry the patient still desaturates down to 88% on room air. after he gets his CT scan we will talk on the phone regarding the next best step. My suspicion is that he will need a bronchoscopy at this time. 08/15/2023 the patient is here for a pulmonary follow-up visit. The patient continues to complain of cough and also shortness of breath with activity. Ndum-kk-jhmvsmwl severity. Denies any fevers or chills. Denies any chest pains. 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 He did have endobronchial lesion blocking the lingula near completely. Therefore, explain the postobstructive pneumonia. The patient did undergo a PET scan. We did review it with the patient and also his daughter. He has a significantly PET avid lingular nodular density in addition to that there is a right-sided nodular density that appears to be also concerning for malignancy. No mediastinal involvement. This likely to primary lung cancer separate. The patient is aware of the findings and the results. Will refer him to Oncology at this time. I did recommend he undergo pulmonary function studies and see if he is a candidate for potential stereotac tic radiation to both lesions. Unfortunately his PDL1 activity was not detected. 11/19/2023 the patient is here for a pulmonary follow-up visit. The patient overall is doing okay. Still having some dyspnea on exertion. Mild in severity. The patient did complete his radiation therapy at [facility]. He tolerated it well. He is currently on cough syrup to try to minimize the cough. He also had pulmonary function studies which we personally reviewed. There appears to be a significant reversible obstruction. Therefore will go ahead and start him on Wixela to try to help him with his reversibility and also to help him with the inflammation that can be induced from the radiation. He is going to use it once a day he is going to rinse his mouth well and then increase it to twice a day if necessary. The patient was also offered a rescue inhaler but does not think he needs it at this time. He will call if any issues. Therefore follow-up in 4 months. He will have additional imaging study I believe at [facility]. 03/17/2024 the patient is here for pulmonary follow-up visit. He completed the radiation. Since the radiation felt some increased shortness of breath in addition to lower extremity weakness. He did follow-up with Oncology unfortunately he has not candidate for targeted therapy. The patient also is frail in would be very difficult for him to tolerate full chemotherapy. He had blood work done with another potassium. He has been trying to make dietary discretion. She will have another lab check and week or so. In the meantime he continues with respiratory therapy. He also has his oxygen. I did recommend using more often specially when he is moving. The patient also will trial a short course of prednisone to see if there is any radiation pneumonitis. Right now does not have any wheezing on examination. I did talk to the family to look into goals of care and they will discuss that amongst the family. 04/14/2024 the patient is here for a pulmonary sick visit. He has been having worsening shortness of breath symptoms. Also felt cold and chills. Therefore we did swab for RSV COVID and influenza. Was all negative. The patient has been complaining of hypoxia. He does have oxygen at home. He has a hard time caring the oxygen least the bigger portable tanks. Therefore, I did place him on a be cylinder 1 L flow and the patient seemed to maintain a pulse ox above 90%. Therefore hopefully with continuous flow he will get relief of the low flow rate so he can have longer duration with smaller tank. The patient also completed the radiation therapy. 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 Will go ahead and give him another course and go ahead and start him on doxycycline cases developing a postobstructive process. Will go ahead and request a chest x-ray. There is any suggestion of bronchopneumonia will start him on a 2nd antibiotic regimen. But at this point I do believe this likely related to the radiation pneumonitis. The patient will undergo a CT scan in a few weeks from now. If he has any worsening symptoms will call for an earlier assessment. However, if his symptoms are no better with the medication he will call the office for an earlier CT scan. the patient still does not have a code status at least on record. Will have to address that during the next visit. 06/23/2024 the patient is here for a pulmonary follow-up visit. Overall the patient has appears to be doing a little better. He is tolerating the oxygen well. He is also a eating more with good appetite. He continues his respiratory therapy as prescribed. The patient already completed the antibiotics and the prednisone. We did again review the CT scan from April demonstrating some new nodular densities increasing size concerning for the possibility of progression of the cancer in addition to that significant interstitial lung disease which could be secondary to pneumonitis from radiation. Although infection is also in differential. We did go ahead and treat him with antibiotics already clinically the patient is doing better as well. Will plan to him come back and have a repeat chest x-ray make sure that there is interval improvement of the parenchymal issues. Hopefully the patient continues to do well Then we can repeat the CT scan closer to August. if the patient however has any worsening symptoms we consider re- evaluating her earlier time. The the family is present and they are aware that the new nodular densities may indeed be progression of disease. I did provide him with incentive spirometer we did go with the instructions on how to use it. In addition to that online pulmonary rehabilitation since the patient is not able to attend in person rehab. 09/12/2024 the patient is here for a pulmonary follow-up visit. Overall he is feeling well. Denies any significant chest pain or cough. He does have dyspnea on exertion. Does use the oxygen with good effect. Did have a chest x-ray today which I personally reviewed. Appears to have the post radiation changes with some radiation fibrosis. On the x-ray at least there is no evidence of any progression of his lung cancer. Will plan to follow-up in [address] scan of the chest. If he has any issues prior to that he will call for further evaluation. 03/09/2025 the patient is here for pulmonary follow-up visit. Overall he is doing good. He has actually been more active going outside more with the good weather. He has been gardening. Still complains of the dyspnea on exertion nsun-we-zacpqdxp severity. Does use his oxygen with good effect. He has not had any weight loss or night sweats. His appetite is still good. He did have a recent CT scan of the chest back in December that we personally reviewed and also compared to the CAT scan from September and also 1 from March. We can see that there is a slight increasing progression of disease. Pulmonary nodules appear to be little bit more enlarged compared to his previous CAT scan consistent and suspicious for metastatic disease. In addition to that he does have some sclerotic bone lesions and also some liver lesions. Does not seem like anything swelling too fast right now. We did talk about options. This point we can watch we can consider biopsying 1 of the metastatic lesions to see if her still dealing with the same process or do nothing. The decision right now which is to wait and watch. Will plan to do another CAT scan in the fall to see the p rogression of disease. Which point we can either stopped doing CAT scans and just follow him as needed or considering to do a biopsy if the family office to do that. He is already 85 years old he is quality of life is pretty good. Therefore, my recommendation for the family is to not personally anything invasive or semi-invasive that can result in other potential complications. 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 Mother No problems noted. Social History Household Members: Spouse Housing: House Housing Other:: , 3 adult children Are you a primary lawn care worker to a significant other at home: No Do you presently have visiting nurse or other home services: No Patient Tobacco Use Status: Former Tobacco user Tobacco use type: Cigarette e-Cigarette/Vaping Use: Never Used service: No Current occupational status: retired Sexual orientation: Straight/Heterosexual Gender identity: Male Cognitive needs: No Hearing needs: No Vision needs: Yes Review of Systems Const All systems reviewed & are unremarkable except as noted in HPI and below Denies chills, Denies fatigue, Denies fever(s), Denies weight gain and Denies weight loss Eyes Reports no additional complaints ENT Denies dizziness Card Denies chest pain, Denies leg edema, Denies lightheadedness, Denies palpitations, Reports dyspnea on exertion, Denies orthopnea and Denies other Resp Reports cough and Reports dyspnea on exertion GI Denies hematochezia and Denies change in stool character Reports no additional complaints Musc Denies abnormal gait, Denies muscle weakness, Denies numbness, Denies radiating pain into limb and Denies tingling Neuro Denies abnormal gait, Denies dizziness, Denies numbness and Denies tingling Endo Denies fatigue and Denies palpitations Physical Exam Vital Signs: Last Vital Signs Pulse 72 03/09/25 10:32 BP 146/60 H 03/09/25 10:32 Pulse Ox 93 03/09/25 10:32 Oxygen Delivery Method Room Air 03/09/25 10:32 BMI result Body Mass Index 23.8 Const General: comfortable HEENT Head: Yes normocephalic Neck Neck: Yes supple Chest Chest palpation & inspection: normal inspection of the chest Resp Effort & Inspection: normal respiratory effort Auscultation: no rales and diminished lung sounds Cardio Heart sounds: S1 normal heart sound present and S2 normal heart sound present GI Palpation (GI): Soft to palpation Skin General skin exam: no rashes or lesions noted Extrem General: Yes no clubbing, cyanosis or edema Immunizations pneumoc 20-hosea conj-dip cr(PF) 0.5 mL IM syringe Performing Provider: Maxwell Garrido MD Performing Location: [facility] Administered by: Marielos Real LPN on 03/09/25 11:22 Dose Route Admin Location Dispensed Lot Number Expiration Date [facility] Customs Director 0.5 mL IM Right Deltoid 0.5 mL [id number] 01/25/26 6996-1704-71 [employer] VIS Given Date VIS Provided VIS Publication Date 03/09/25 Single Vaccine 23 Eligibility Eligibility Date Funding Source Not [place] Eligible 03/09/25 Private Assessment & Plan Assessment & Plan (1) Squamous cell lung cancer: Onset Date: ~2022 Comment: ([facility] - dx 06/2023), s/p RTx , f/u with Dr. Olivares and pulmonology Code(s): C34.90 - Malignant neoplasm of unspecified part of unspecified bronchus or lung Category: Medical Qualifiers: Laterality: left Qualified Code(s): C34.92 - Malignant neoplasm of unspecified part of left bronchus or lung (2) Pulmonary nodule: Comment: (1cm RML nodule PET avid- suv max 6.3 - likely second primary) Code(s): R91.1 - Solitary pulmonary nodule Category: Medical (3) Asthma-COPD overlap syndrome: Code(s): J44.89 - Other specified chronic obstructive pulmonary disease Category: Medical Plan continue Wixela consider ANTHONY as needed s/P SBRT to left sided CA lesion CT chest 6 months Goals of care oxygen revision: B cylinders 1l/min with activity and 2L with sleep F/U 6 months Orders: Orders Pneumococcal 20 Immunization Today Z23 - Encounter for immunization Coding Level of Care Code Est Pt Level 4 (94094) Complex EM visit Add On G2211 Diagnoses Squamous cell carcinoma of left lung C34.92 Laterality: left Pulmonary nodule R91.1 Asthma-COPD overlap syndrome J44.89 Time Spent (min) 17
--- OUTSIDE RECORDS SUMMARY | 2025-03-09 11:07 | XMS_ITS | Clinical Summary ---
Author Organization [facility] it Address [address] [place] [address] Care Team Providers Care Pony Roll Finisher Name Role Phone Unavailable Primary Care Provider [...] cified COPD (chronic obstructive pu lmonary disease) ([facility], [facility] V28) 05/15/2013 DX:COPD (chronic o bstructive pulmonary disease) ([facility]) Family History Medical History Relation Name Comments [...] 2 - PCV) 08/08/2006 08/08/2005 RSV Immunization Adult Patients (1 - 1-dose 75+ series) 2014 COVID-19 Vaccine (2 - 2023-2 5 season) 2024 04/11/2021 Influenza Vaccine (Season Ended) 2025 08/08/2005 DTaP,Tdap,and Td Vaccines (4 - Td [...] age to complete this topic Meningococcal B Vaccine Aged Out No l onger eligible based on patient's age to complete this topic RSV Immunization Patients Under 20 months Aged Out No longer eligible b ased on patient's age to complete this topic Varicella Vaccines Aged Out No longer eligible based on patient's age to complete this topic
== END 2025-03-09 11:18 | disposition home or self-care (01) ==
LOC: HO.HPS 10:29
PROVIDERS: PCP Internal Medicine; Visit Provider Hospitalist
DX: C34.92 Malignant neoplasm of unspecified part of left bronchus or lung (principal); R91.1 Solitary pulmonary nodule; J44.89 Other specified chronic obstructive pulmonary disease
CPT/HCPCS: 99214; G2211

== ENCOUNTER → 2025-03-09 10:29 | Outpatient (BNVA) | payer MEDICARE, MEDICAID, SELFPAY | PROVIDERS: PCP Internal Medicine; Visit Provider Hospitalist | DX: Z23 Encounter for immunization (principal); R91.1 Solitary pulmonary nodule; J44.89 Other specified chronic obstructive pulmonary disease; C34.92 Malignant neoplasm of unspecified part of left bronchus or lung | CPT/HCPCS: 90471; 90677; 99212 ==

== ENCOUNTER 2025-04-30 09:04 | Outpatient (AMB) | payer MEDICARE, MEDICAID, SELFPAY ==
[2025-04-30 09:14] VITALS: BP 116/64; PULSE 78; RESP 20; TEMP 36.5; O2SAT 94; BMI 24.0
--- NOTE | 2025-04-30 09:14 | A.OFFPC_ITS ---
Vital Signs 04/30/25 09:14 Height 5 ft 6 in Weight 149 lb BMI 24.0 BP 116/64 Blood Pressure Location Rt brachial Position Sitting Respiration 20 Pulse 78 Pulse Source Pulse Oximeter Temp 97.7 F Temp Source Oral Pulse Oximetry (%) 94 Oxygen Delivery Method Room Air Intake Visit Reasons: 6 months follow up Intake Note: Pt is here today for 6 months follow up visit. Allergies No Known Allergies Allergy (Verified 04/30/25 09:17) Medication List - Last Reconciled 04/30/25 by Theresa Teague MD albuterol sulfate 2.5 mg (0.5 mL) inhalation Q6H allopurinol 100 mg PO DAILY fluticasone propion-salmeterol 250-50 mcg/dose (Wixela Inhub) 1 inh inhalation Q12H 30 days nebulizers As directed olmesartan 20 mg PO DAILY Oxygen Home Use As directed [transport wheelchair with footrests As directed] Tobacco use date assessed: 04/30/25 Fall risk assessment: No Falls in past year Last assessed Fall Risk: 04/30/25 Dental Screening Dental Screen Date: 10/30/24 HPI 6 months follow up HPI Details Patient presents for the follow-up of O2 dependent COPD, a squamous cell CA status post radiation, hypertension. Patient is feeling better with the supplemental O2. He denies cough pleurisy fever chills shortness or breath weight loss. He is established with [facility] Medical History Pneumonitis Asthma-COPD overlap syndrome Squamous cell lung cancer (~2022) Supplemental oxygen dependent HTN (hypertension) Hyperlipidemia Situational anxiety Gout Surgical History History of colonoscopy History of shoulder surgery History of bronchoscopy Family History Father No problems noted. Mother No problems noted. Social History Household Members: Spouse Housing: House Housing Other:: , 3 adult children Are you a primary career based intervention coordinator to a significant other at home: No Do you presently have visiting nurse or other home services: No Patient Tobacco Use Status: Former Tobacco user Tobacco use type: Cigarette e-Cigarette/Vaping Use: Never Used service: No Current occupational status: retired Sexual orientation: Straight/Heterosexual Gender identity: Male Cognitive needs: No Hearing needs: No Vision needs: Yes Questionnaire Thrive Questionnaire Date Thrive assessed: 10/30/24 AUDIT C Alcohol Use Questionnaire (AUDIT-C) 1. How often do you have a drink containing alcohol?: Never 3. How often do you have six or more drinks on one occasion?: Never Total Score: 0 ZENY-7 AMB Questionnaire ZENY-7 Date ZENY - 7 assessed: 10/30/24 Source: Developed by Drs. Israel Summers, Valarie Russ, Ramirez Christensen and colleagues, with an educational betsy from [employer]. Review of Systems Const All systems reviewed & are unremarkable except as noted in HPI and below Eyes Reports no additional complaints ENT Reports no additional complaints Card Reports no additional complaints Resp Reports no additional complaints GI Reports no additional complaints Reports no additional complaints Physical exam (Primary Care) Vital Signs: Last Vital Signs Temp 97.7 F 04/30/25 09:14 Pulse 78 04/30/25 09:14 Resp 20 04/30/25 09:14 BP 116/64 04/30/25 09:14 Pulse Ox 94 04/30/25 09:14 Oxygen Delivery Method Room Air 04/30/25 09:14 BMI result Body Mass Index 24.0 Tobacco/Smoking Status: Tobacco use Status Tobacco use date assessed 04/30/25 04/30/25 09:18 Patient Tobacco Use Status Former Tobacco user 04/30/25 09:14 Tobacco use type Cigarette 04/30/25 09:14 e-Cigarette/Vaping Use Never Used 04/30/25 09:14 Thrive Assessment: Date of Thrive Assessment Date Thrive assessed 10/30/24 04/30/25 09:14 Const General: no acute distress HENMT Head: Yes normal to inspection Eyes General: appearance normal, both eyes and all related structures Neck Neck: Yes supple Resp Effort & Inspection: normal respiratory effort Auscultation: diminished lung sounds Cardio Rhythm: regular rhythm Heart sounds: S1 normal heart sound present and S2 normal heart sound present Coding Level of Care Code Est Pt Level 4 (44717) Complex EM visit Add On G2211 Diagnoses HTN (hypertension) I10 Squamous cell carcinoma of left lung C34.92 Laterality: left COPD (chronic obstructive pulmonary disease) J44.9 Assessment & Plan Assessment & Plan (1) HTN (hypertension): Code(s): I10 - Essential (primary) hypertension Category: Medical Plan: Continue olmesartan (2) Squamous cell lung cancer: Onset Date: ~2022 Comment: ([facility] - dx 06/2023), s/p RTx , f/u with Dr. Olivares and pulmonology Code(s): C34.90 - Malignant neoplasm of unspecified part of unspecified bronchus or lung Category: Medical Qualifiers: Laterality: left Qualified Code(s): C34.92 - Malignant neoplasm of unspecified part of left bronchus or lung Plan: Follow-up with pulmonology (3) COPD (chronic obstructive pulmonary disease): Comment: O2 dependent, f/u pulmonology Code(s): J44.9 - Chronic obstructive pulmonary disease, unspecified Category: Medical Plan: Continue Wixela supplemental O2 follow-up with pulmonology. pt will follow-up in 6 months with a fasting labs before Orders: Orders Complete Blood Count Auto Diff 6 Months C34.92 - Malignant neoplasm of unspecified part of left bronchus or lung, I10 - Essential (primary) hypertension, J44.9 - Chronic obstructive pulmonary disease, unspecified Comprehensive [place]. Panel Fast 6 Months C34.92 - Malignant neoplasm of u nspecified part of left bronchus or lung, I10 - Essential (primary) hypertension, J44.9 - Chronic obstructive pulmonary disease, unspecified Medications: Refilled olmesartan 20 mg PO DAILY 90 tabs 3RF
--- OUTSIDE RECORDS SUMMARY | 2025-04-30 09:20 | XMS_ITS | Clinical Summary ---
Author Organization [facility] it Address [address] [place] [address] Care Team Providers Care Pig Sticker Name Role Phone Unavailable Primary Care Provider [...] cified COPD (chronic obstructive pu lmonary disease) ([facility] V24, [facility] V28) 05/15/2013 DX:COPD (chronic o bstructive pulmonary disease) ([facility]) Family History Medical History Relation Name Comments [...]
== END 2025-04-30 09:58 | disposition home or self-care (01) ==
LOC: HO.HMCC 09:05
PROVIDERS: PCP Internal Medicine; Visit Provider Internal Medicine
DX: I10 Essential (primary) hypertension (principal); C34.92 Malignant neoplasm of unspecified part of left bronchus or lung; J44.9 Chronic obstructive pulmonary disease, unspecified

== ENCOUNTER → 2025-04-30 09:04 | Outpatient (BNVA) | payer MEDICARE, MEDICAID, SELFPAY | PROVIDERS: PCP Internal Medicine; Visit Provider Internal Medicine | DX: I10 Essential (primary) hypertension (principal); C34.92 Malignant neoplasm of unspecified part of left bronchus or lung; J44.9 Chronic obstructive pulmonary disease, unspecified | CPT/HCPCS: 99212 ==

== ENCOUNTER 2025-09-07 10:21 | Outpatient (AMB) | payer MEDICARE, MEDICAID, SELFPAY ==
[2025-09-07 10:32] VITALS: BP 100/50; PULSE 75; O2SAT 93; BMI 24.2
--- NOTE | 2025-09-07 10:32 | A.OFFVIS_ITS ---
Vital Signs 09/07/25 10:32 Height 5 ft 6 in Weight 149 lb 14.629 oz BMI 24.2 BP 100/50 L Blood Pressure Location Lt brachial Position Sitting Pulse 75 Pulse Source Pulse Oximeter Pulse Oximetry (%) 93 Oxygen Delivery Method Room Air Intake Visit Reasons: Lung cancer Electrical Equipment Assembler Required: Yes Electrical Equipment Assembler Services: Electrical Equipment Assembler Offered & Declined Electrical Equipment Assembler Name: Daughter will interpret Accompanied by: Daughter Allergies No Known Allergies Allergy (Verified 09/07/25 10:35) HPI Comments Details: He is an 85-year-old gentleman non Moldovan-speaking his daughter is translating and she is very fluent. Apparently patient has been developing worsening cough and shortness of breath. Denies any significant night sweats or hemoptysis. Denies any significant weight loss. Ultimately the patient did have a chest x- ray that was abnormal and then followed up with a CT scan of the chest demonstrating significant airspace disease in appears to have an endobronchial obstruction. I am suspicious for a postobstructive pneumonia. Explained to this concerning findings with the patient and his daughter. I did explain that he would need further diagnostic interventions. However, the patient states that he would like to hold off on any invasive or semi invasive diagnostic procedures. I did give him few different options as far as bronchoscopy versus CT-guided biopsy but the patient opted on conservative measures. Therefore, I did give him a prescription for antibiotics and also will prescribe a Acapella valve for chest PT to see if he can clear some mucus out of the airways and see if there can be some improvement. Will plan to repeat the CT scan 6 weeks to see if there is any significant improvement. In the meantime the family will talk with the patient to see if he would want to consider further diagnostic interventions in the near future if still needed. If he decides not to undergo any diagnostic interventions and understands the gravity of the situation then will have to consider talking further about goals of care. also, during the visit we did go for brief walking oximetry in the patient did desaturate to 88% with activity. The patient did qualify for oxygen supplementation with activity. 06/25/2023 the patient is here for a pulmonary follow-up visit. The patient completed the antibiotics. He is also using the flutter valve for chest PT. He is able to get some sputum out. She also using the oxygen with good effect. The oxygen therapy has been affecting beneficial. In the meantime he is scheduled for the CT scan but is not too next week. He still has some crackles on examination specially on the left side is very diminished. I talked to the family and I suspect that the left-sided density probably is not any better. We did talk about if the CT scan continues to be abnormal will perform a bronchoscopy. Explained the procedure to the patient and also to his daughter. The patient understands and is willing to proceed with the procedure. We did go for brief walking oximetry the patient still desaturates down to 88% on room air. after he gets his CT scan we will talk on the phone regarding the next best step. My suspicion is that he will need a bronchoscopy at this time. 08/15/2023 the patient is here for a pulmonary follow-up visit. The patient continues to complain of cough and also shortness of breath with activity. [id number] severity. Denies any fevers or chills. Denies any chest pains. 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 He did have endobronchial lesion blocking the lingula near completely. Therefore, explain the postobstructive pneumonia. The patient did undergo a PET scan. We did review it with the patient and also his daughter. He has a significantly PET avid lingular nodular density in addition to that there is a right-sided nodular density that appears to be also concerning for malignancy. No mediastinal involvement. This likely to primary lung cancer separate. The patient is aware of the findings and the results. Will refer him to Oncology at this time. I did recommend he undergo pulmonary function studies and see if he is a candidate for potential stereotactic radiation to both lesions. Unfortunately his PDL1 activity was not detected. 11/19/2023 the patient is here for a pulmonary follow-up visit. The patient overall is doing okay. Still having some dyspnea on exertion. Mild in severity. The patient did complete his radiation therapy at [facility]. He tolerated it well. He is currently on cough syrup to try to minimize the cough. He also had pulmonary function studies which we personally reviewed. There appears to be a significant reversible obstruction. Therefore will go ahead and start him on Wixela to try to help him with his reversibility and also to help him with the inflammation that can be induced from the radiation. He is going to use it once a day he is going to rinse his mouth well and then increase it to twice a day if necessary. The patient was also offered a rescue inhaler but does not think he needs it at this time. He will call if any issues. Therefore follow-up in 4 months. He will have additional imaging study I believe at [facility]. 03/17/2024 the patient is here for pulmonary follow-up visit. He completed the radiation. Since the radiation felt some increased shortness of breath in addition to lower extremity weakness. He did follow-up with Oncology unfortunately he has not candidate for targeted therapy. The patient also is frail in would be very difficult for him to tolerate full chemotherapy. He had blood work done with another potassium. He has been trying to make dietary discretion. She will have another lab check and week or so. In the meantime he continues with respiratory therapy. He also has his oxygen. I did recommend using more often specially when he is moving. The patient also will trial a short course of prednisone to see if there is any radiation pneumonitis. Right now does not have any wheezing on examination. I did talk to the family to look into goals of care and they will discuss that amongst the family. 04/14/2024 the patient is here for a pulmonary sick visit. He has been having worsening shortness of breath symptoms. Also felt cold and chills. Therefore we did swab for RSV COVID and influenza. Was all negative. The patient has been complaining of hypoxia. He does have oxygen at home. He has a hard time caring the oxygen least the bigger portable tanks. Therefore, I did place him on a be cylinder 1 L flow and the patient seemed to maintain a pulse ox above 90%. Therefore hopefully with continuous flow he will get relief of the low flow rate so he can have longer duration with smaller tank. The patient also completed the radiation therapy. 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 Will go ahead and giv e him another course and go ahead and start him on doxycycline cases developing a postobstructive process. Will go ahead and request a chest x-ray. There is any suggestion of bronchopneumonia will start him on a 2nd antibiotic regimen. But at this point I do believe this likely related to the radiation pneumonitis. The patient will undergo a CT scan in a few weeks from now. If he has any wors ening symptoms will call for an earlier assessment. However, if his symptoms are no better with the medication he will call the office for an earlier CT scan. the patient still does not have a code status at least on record. Will have to address that during the next visit. 06/23/2024 the patient is here for a pulmonary follow-up visit. Overall the patient has appears to be doing a little better. He is tolerating the oxygen well. He is also a eating more with good appetite. He continues his respiratory therapy as prescribed. The patient already completed the antibiotics and the prednisone. We did again review the CT scan from April demonstrating some new nodular densities increasing size concerning for the possibility of progression of the cancer in addition to that significant interstitial lung disease which could be secondary to pneumonitis from radiation. Although infection is also in differential. We did go ahead and treat him with antibiotics already clinically the patient is doing better as well. Will plan to him come back and have a repeat chest x-ray make sure that there is interval improvement of the parenchymal issues. Hopefully the patient continues to do well Then we can repeat the CT scan closer to August. if the patient however has any worsening symptoms we consider re- evaluating her earlier time. The the family is present and they are aware that the new nodular densities may indeed be progression of disease. I did provide him with incentive spirometer we did go with the instructions on how to use it. In addition to that online pulmonary rehabilitation since the patient is not able to attend in person rehab. 09/12/2024 the patient is here for a pulmonary follow-up visit. Overall he is feeling well. Denies any significant chest pain or cough. He does have dyspnea on exertion. Does use the oxygen with good effect. Did have a chest x-ray today which I personally reviewed. Appears to have the post radiation changes with some radiation fibrosis. On the x-ray at least there is no evidence of any progression of his lung cancer. Will plan to follow-up in [address] scan of the chest. If he has any issues prior to that he will call for further evaluation. 03/09/2025 the patient is here for pulmonary follow-up visit. Overall he is doing good. He has actually been more active going outside more with the good weather. He has been gardening. Still complains of the dyspnea on exertion [id number] severity. Does use his oxygen with good effect. He has not had any weight loss or night sweats. His appetite is still good. He did have a recent CT scan of the chest back in December that we personally reviewed and also compared to the CAT scan from September and also 1 from March. We can see that there is a slight increasing progression of disease. Pulmonary nodules appear to be little bit more enlarged compared to his previous CAT scan consistent and suspicious for metastatic disease. In addition to that he does have some sclerotic bone lesions and also some liver lesions. Does not seem like anything swelling too fast right now. We did talk about options. This point we can skye ch we can consider biopsying 1 of the metastatic lesions to see if her still dealing with the same process or do nothing. The decision right now which is to wait and watch. Will plan to do another CAT scan in the fall to see the progression of disease. Which point we can either stopped doing CAT scans and just follow him as needed or considering to do a biopsy if the family office to do that. He is already 85 years old he is quality of life is pretty good. Therefore, my recommendation for the family is to not personally anything invasive or semi-invasive that can result in other potential complications. 09/07/2025 the patient is here for pulmonary follow-up visit. Overall the patient has been doing well. He continues uses respiratory therapy as prescribed. Does have shortness of breath with activity. [id number] severity but sometimes he goes too fast. He does have the oxygen also this has been affecting beneficial with activity. The patient has not had any imaging studies his December 2024. At this point the patient clinically has been doing well lung sounds well and he does not have any other complaints. He is going to get a flu shot today at the pharmacy. The patient will return back in December after repeat CAT scan. If he has any issues prior to this she can always call for further recommendations. 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 Mother No problems noted. Social History Household Members: Spouse Housing: House Housing Other:: , 3 adult children Are you a primary skin care consultant to a significant other at home: No Do you presently have visiting nurse or other home services: No Patient Tobacco Use Status: Former Tobacco user Tobacco use type: Cigarette e-Cigarette/Vaping Use: Never Used service: No Current occupational status: retired Sexual orientation: Straight/Heterosexual Gender identity: Male Cognitive needs: No Hearing needs: No Vision needs: Yes Review of Systems Const All systems reviewed & are unremarkable except as noted in HPI and below Denies chills, Denies fatigue, Denies fever(s), Denies weight gain and Denies weight loss Eyes Reports no additional complaints ENT Denies dizziness Card Denies chest pain, Denies leg edema, Denies lightheadedness, Denies palpitations, Reports dyspnea on exertion, Denies orthopnea and Denies other Resp Reports cough and Reports dyspnea on exertion GI Denies hematochezia and Denies change in stool character Reports no additional complaints Musc Denies abnormal gait, Denies muscle weakness, Denies numbness, Denies radiating pain into limb and Denies tingling Neuro Denies abnormal gait, Denies dizziness, Denies numbness and Denies tingling Endo Denies fatigue and Denies palpitations Physical Exam Vital Signs: Last Vital Signs Pulse 75 09/07/25 10:32 BP 100/50 L 09/07/25 10:32 Pulse Ox 93 09/07/25 10:32 Oxygen Delivery Method Room Air 09/07/25 10:32 BMI result Body Mass Index 24.2 Const General: comfortable HEENT Head: Yes normocephalic Neck Neck: Yes supple Chest Chest palpation & inspection: normal inspection of the chest Resp Effort & Inspection: normal respiratory effort Auscultation: no rales and diminished lung sounds Cardio Heart sounds: S1 normal heart sound present and S2 normal heart sound present GI Palpation (GI): Soft to palpation Skin General skin exam: no rashes or lesions noted Extrem General: Yes no clubbing, cyanosis or edema Assessment & Plan Assessment & Plan (1) Squamous cell lung cancer: Onset Date: ~2022 Comment: ([facility] - dx 06/2023), s/p RTx , f/u with Dr. Olivares and pulmonology Code(s): C34.90 - Malignant neoplasm of unspecified part of unspecified bronchus or lung Category: Medical Qualifiers: Laterality: left Qualified Code(s): C34.92 - Malignant neoplasm of unspecified part of left bronchus or lung (2) Pulmonary nodule: Comment: (1cm RML nodule PET avid- suv max 6.3 - likely second primary) Code(s): R91.1 - Solitary pulmonary nodule Category: Medical (3) Asthma-COPD overlap syndrome: Code(s): J44.89 - Other specified chronic obstructive pulmonary disease Category: Medical Plan continue Wixela consider ANTHONY as needed s/P SBRT to left sided CA lesion CT chest 12/2024 oxygen revision: B cylinders 1l/min with activity and 2L with sleep F/U 4-[address] months Orders: Orders [address] chest wo IV con 12/27/25 C34.92 - Malignant neoplasm of unspecified part of left bronchus or lung Coding Level of Care Code Est Pt Level 4 (34108) Complex EM visit Add On G2211 Diagnoses Squamous cell carcinoma of left lung C34.92 Laterality: left Pulmonary nodule R91.1 Asthma-COPD overlap syndrome J44.89 Time Spent (min) 16
--- OUTSIDE RECORDS SUMMARY | 2025-09-07 12:09 | XMS_ITS | Clinical Summary ---
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 Active allopurinol (ZYLOPRIM) 100 MG tablet Take 100 mg by mouth daily. Active hydroCHLOROthia zide (HYDRODIURIL) 25 MG tablet Take 25 mg by mouth daily. Active olmesartan (BENICAR) 20 mg tablet Take 20 mg by mouth daily. Active albuterol 2.5 mg /3 mL (0.083 %) nebulizer solution Take 3 mL (2.5 mg total) by nebulization every 6 (six) hours as needed (coughing and excessive phlegm). 252 mL 4 Active predniSONE (DELTASONE) 10 MG tablet Take 30 mg by mouth daily. Currently on taper. Started at 60 mg daily. Active tamsulosin (FLOMAX) 0.4 mg Cap Take 1 capsule (0.4 mg total) by mouth daily. 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 Not on kanika e 08/30/2023 Are you concerned about learning? Not on file 08/30/2023 No 08/30/2023 No 08/30/2023 Digital Access Answer Date Recorded No 08/30/2023 No 08/30/2023 Reliable internet access at home? Not on file 08/30/2023 Device with a working camera? Not on file Sex and Gender Information Value Date Recorded Sex Assigned at Not on file Legal Sex Male 2:32 PM EDT Gender Identity Not on file Sexual Orientation Not on file Last Filed Vital Signs Vital Sign Reading Time Taken Comments Blood Pressure 131/59 03/19/2024 10:44 AM EDT Pulse 86 03/19/2024 10:44 AM EDT Temperature - - Respiratory Rate 18 10/30/2023 10:04 AM EST Oxygen Saturation 91% 03/19/2024 10:44 AM EDT Inhaled Oxygen Concentration - - Weight 65.8 kg (145 lb) 03/19/2024 10:44 AM EDT Height - - Body Mass Index - - Plan of Treatment Health Maintenance Due Date Last Done Comments Adult Td,Tdap Booster 1939 CREATININE LEVEL 1939 POTASSIUM LEVEL 1939 DEPRESSION SCREENING 1951 PNEUMOCOCCAL VACCINES (50+ y ears) (1 of 2 - PCV) 1958 ZOSTER VACCINES (1 of 2) 1958 RSV VACCINE (1 - 1-dose 75+ series) 2014 INFLUENZA VACCINE (#1) 2025 COVID-19 VACCINE ( - 2024-2 6 season) 2025 HEPATITIS A VACCINES Aged Out No long er eligible based on patient's age to complete this topic HIB VACCINES Aged Out No longer eligi ble based on patient's age to complete this topic IPV VACCINES Aged Out No longer eligi ble based on patient's age to complete this topic MENINGOCOCCAL VACCINES (ACWY) Aged Out No longer eligible based on patient's age to complete this topic MENINGOCOCCAL VACCINES (B) Aged Out N o longer eligible based on patient's age to complete this topic Medical Devices Not on file Insurance [facility] MEDICARE REPLACEMENT [facility]IC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 It is not the complete legal health record.[facility]
--- OUTSIDE RECORDS SUMMARY | 2025-09-07 12:09 | XMS_ITS | Clinical Summary ---
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 Snow Maker Name Role Phone Unavailable Primary Care Provider [...] cified COPD (chronic obstructive pu lmonary disease) ([facility] V24, [facility] V28) 05/15/2013 DX:COPD (chronic o bstructive pulmonary disease) ([facility]) Family History Medical History Relation Name Comments Other: asthma Father Other: at 40 Mother details no t known Relation Name Status Comments Father Mother Social History Tobacco Use Types Packs/Day Years Used Date Smoking Tobacco: Former Cigarettes 0 Q uit: 10/29/2002 Smokeless Tobacco: Former Alcohol [...] Patients (1 - 1-dose 75+ series) 2014 Depression Screening 10/29/2024 COVID-19 Vaccine (2 - 2024-2 6 season) 2025 04/11/2021 Influenza Vaccine (#1) 2025 08/08/2005 DTaP,Tdap,and Td Vaccines (4 - [...]
== END 2025-09-07 10:54 | disposition home or self-care (01) ==
LOC: HO.HPS 10:22
PROVIDERS: PCP Internal Medicine; Visit Provider Hospitalist
DX: C34.92 Malignant neoplasm of unspecified part of left bronchus or lung (principal); R91.1 Solitary pulmonary nodule; J44.89 Other specified chronic obstructive pulmonary disease
CPT/HCPCS: 99214; G2211

== ENCOUNTER → 2025-09-07 10:21 | Outpatient (BNVA) | payer MEDICARE, MEDICAID, SELFPAY | PROVIDERS: PCP Internal Medicine; Visit Provider Hospitalist | DX: R91.1 Solitary pulmonary nodule (principal); J44.89 Other specified chronic obstructive pulmonary disease; C34.92 Malignant neoplasm of unspecified part of left bronchus or lung | CPT/HCPCS: 99212 ==